=== PATIENT | male | born 1950 | race Caucasian/White ===

== ENCOUNTER 2023-03-24 20:18 | Observation (INO) | payer OTHER, SELFPAY ==
[2023-03-24] VITALS (9 sets, daily range): BP systolic 91–129; BP diastolic 46–73; PULSE 43–49; RESP 12–22; TEMP 36.3–36.6; O2SAT 94–98; BMI 27.3; BMI 29.0
--- NOTE | 2023-03-24 20:27 | ECG_ITS ---
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 Measurements Intervals [place] Rate: 42 P: 0 ID: 0 QRS: 40 QRSD: 128 T: 58 QT: 600 QTc: 507 Interpretive Statements UNCERTAIN REGULAR RHYTHM MODERATE INTRAVENTRICULAR CONDUCTION DELAY [110+ ms QRS DURATION] PROLONGED QT INTERVAL CRITICAL TEST RESULT Compared to ECG 04/26/2017 12:21:24 Intraventricular conduction delay now present Prolonged QT interval now present Sinus bradycardia no longer present Incomplete right bundle-branch block no longer present Electronically Signed On 03-24-2023 23:29:32 CDT by Jarred Mary M.D. [email or web address] Network/store/[id number]
--- NOTE | 2023-03-24 20:27 | XRR_ITS ---
PROCEDURE INFORMATION: Exam: XR Chest Exam date and time: 03/24/2023 8:32 PM Age: 72 years old Clinical indication: Pain; Chest pressure; Additional info: Chest pain TECHNIQUE: Imaging protocol: Radiologic exam of the chest. Views: 1 view. COMPARISON: CR XR chest 1V [id number] 04/26/2017 12:49 PM FINDINGS: Lungs: See Heart/Mediastinum finding. Pleural spaces: Unremarkable. No pleural effusion. No pneumothorax. Heart/Mediastinum: Cardiomegaly and mild pulmonary vascular congestion. Diaphragm: Left diaphragmatic eventration. Bones/joints: Unremarkable. XR/XR chest 1V portable [id number] IMPRESSION: 1. Left diaphragmatic eventration. 2. Cardiomegaly and mild pulmonary vascular congestion.
[2023-03-24] MEDS: sodium chloride 0.9% 1,000 ML 999 ML IV (20:33)
[2023-03-24] MEDS: glucagon 1 mg/mL KIT 1 mL IV (20:34)
--- NOTE | 2023-03-24 20:43 | ED_ITS ---
HPI - Chest Pain General: Chief Complaint: Chest Pain Stated Complaint: bradycardia Time Seen by Provider: 03/24/23 20:24 History of Present Illness: 72-year-old male with a known history of previous small atrial fibrillation presents to the ER chief complaint of hypotension and bradycardia patient was recently seen in the ER at [facility] in which he was provided a dose o f either Cardizem or carvedilol as his heart rate was found to be in the 160s he was subsequently discharged home in which he became hypotensive and bradycardic EMS was contacted in which she required 2 doses of epinephrine as well as 2 doses of atropine as blood pressure and heart rate were extremely low. Patient reports generalized weakness and fatigue since that he reports he is a [facility] in which all of his healthcare including cardiology is based out [facility]. The patient presents to our ER for further assessment and management. Associated symptoms: Deny abdominal pain, dyspnea, fever(s), nausea, palpitations or vomiting Review of Systems General: Reports: 10 or more systems reviewed and unremarkable except in HPI and below Narrative: Generalized weakness and fatigue bradycardia Const: Denies: fever(s), chills, fatigue or malaise Eyes: Denies: change in vision or blurry vision Card: Reports: irregular heart rhythm and pre-syncope; Denies: chest pain or palpitations Resp: Denies: dyspnea or productive cough GI: Denies: abdominal pain, nausea or vomiting : Denies: flank pain Musc: Denies: extremity pain or extremity swelling Skin/Breast: Denies: rash or pruritus Neuro: Denies: headache(s) Psych: Denies: anxiety or depression Jame/Lymph: Denies: easy bleeding All/Imm: Denies: urticaria, throat swelling or facial swelling Physical Exam Narrative: EXAM NARRATIVE: Flat affect appreciated on exam current heart rate is 48 with a blood pressure 100/61 patient appears somewhat pale however appears in no obvious acute dist ress Const: COMMON NORMALS: no acute distress, patient oriented x3 and healthy appearing HENMT: COMMON NORMALS: normocephalic and atraumatic HEAD & SCALP: normocephalic and atraumatic Eye: COMMON NORMALS: Equal, round and reactive pupils present and EOMs intact bilaterally PUPIL: Yes Equal, round and reactive pupils present Neck/C-Spine: COMMON NORMALS: full ROM, supple and no JVD Lymph: LYMPHATIC: no lymphadenopathy noted Chest: COMMONS NORMALS: normal inspection of the chest and normal palpation of entire chest wall Resp: COMMON NORMALS: normal respiratory effort, No retractions and clear to auscultation bilaterally EFFORT & INSPECTION: Yes able to speak in complete sentences and Yes symmetric chest movement AUSCULTATION: clear to auscultation bilaterally Cardio: COMMON NORMALS: no JVD, regular rate and regular rhythm RATE: regular rate and bradycardic RHYTHM: regular rhythm GI: COMMON NORMALS: Normal to inspection, nondistended, normoactive bowel sounds present, Soft to palpation and non-tender INSPECTION: Yes normal to inspection PALPATION: Yes Soft to palpation : COMMON NORMALS: Yes no CVA tenderness BLADDER/KIDNEY EXAM: Yes no CVA tenderness Back/Pelvis: COMMON NORMALS: no CVA tenderness Extremity: COMMON NORMALS: normal to inspection and full ROM Neuro: COMMON NORMALS: patient oriented x3, CN's II-XII intact bilaterally, moves all extremities and no focal motor deficits Psych: COMMON NORMALS: mental status grossly normal, Normal thought process present, cooperative and normal affect THOUGHT PROCESS: Normal thought process present Skin: COMMON NORMALS: no rashes or lesions noted GENERAL SKIN EXAM: no rashes or lesions noted Course Vital Signs: Vital signs: Vital Signs Temperature 97.3 F L 03/24/23 20:20 Pulse Rate 49 L 03/24/23 21:55 Respiratory Rate 12 03/24/23 21:55 Blood Pressure 115/73 03/24/23 21:55 Pulse Oximetry 95 03/24/23 21:55 Oxygen Delivery Me thod Room Air 03/24/23 21:00 MDM - Chest Pain Medical Decision Making Underlying concerns of sick sinus syndrome versus more than likely beta-jim overdose adverse reaction patient will be treated accordingly patient's current blood pressure is somewhat bradycardic and hypotensive we provided him calcium gluconate as he did have a prolonged QTc of 543 ms on his EKG which appears to be a junctional rhythm versus first-degree heart block. Expect need for admission or transfer as patient is a will continue to follow carefully. Discussed patient's case with Dr. Sol followed by Dr. Bui that are both in agreement to place the patient in observation status overnight the patient's repeat EKG revealed improvement of his QTc that is currently at 456 ms down from 543 ms due to being that there is a sinus bradycardia currently patient remained in stable condition at this time. Lab Data 03/24/23 20:33 03/24/23 20:33 Radiology Impressions Chest X-Ray 03/24/23: IMPRESSION: 1. Left diaphragmatic eventration. 2. Cardiomegaly and mild pulmonary vascular congestion. Laboratory Results WBC 8.0 10^3/uL (4.0-10.0) 03/24/23: RBC 3.23 10^6/uL (4.1-5.3) L 03/24/23: Hgb 12.1 g/dL (11.7-16.6) 03/24/23: Hct 33.9 % (42.0-52.0) L 03/24/23: MCV 105.0 fl (80-94) H 03/24/23: MCH 37.5 pg (28.0-34.0) H 03/24/23: MCHC 35.7 g/dL (30.0-36.0) 03/24/23: RDW 14.4 % (12.1-15.1) 03/24/23: Plt Count 158 10^3/cmm (130-400) 03/24/23: MPV 10.3 fL (7.4-10.4) 03/24/23 20: Neut % (Auto) 43.1 % 03/24/23: Lymph % (Auto) 38.1 % 03/24/23: Tate % (Auto) 12.8 % 03/24/23: Eos % (Auto) 3.4 % 03/24/23: Baso % (Auto) 2.0 % 03/24/23: Neut # (Auto) 3.44 10^3/uL (1.8-7.7) 03/24/23: Lymph # (Auto) 3.0 10^3/uL (0.8-4.8) 03/24/23 20: Tate # (Auto) 1.0 10^3/uL (0.2-0.9) H 03/24/23 20: Eos # (Auto) 0.3 10^3/uL (0.0-0.8) 03/24/23 20:33 Baso # (Auto) 0.2 10^3/uL (0.0-0.1) H 03/24/23 20:33 Nucleated RBC % (auto) 0 % 03/24/23 20: Nucleated RBCs # 0.0 /100WBC 03/24/23 20:33 PT 23.10 SECONDS (12.1-14.9) H 03/24/23 20:33 INR 1.97 (0.8-1.2) H 03/24/23 20:33 APTT 39.5 SECONDS (23.9-36.7) H 03/24/23 20:33 Sodium 141 mmol/L (136-145) 03/24/23 20:33 Potassium 4.2 mmol/L (3.5-5.1) 03/24/23 20:33 Chloride 110 mmol/L (98-107) H 03/24/23 20:33 Carbon Dioxide 26 mmol/L (22-29) 03/24/23 20:33 Anion Gap 9.2 (5-19) 03/24/23 20:33 BUN 10 mg/dL (8-23) 03/24/23 20:33 Creatinine 0.8 mg/dL (0.7-1.2) 03/24/23 20:33 GFR Calculation 95.6 mL/min (90-130) 03/24/23 20:33 Glucose 103 mg/dL (65-115) 03/24/23 20:33 Calculated Osmolality 291 mOsm/kg (285-295) 03/24/23 20:33 Calcium 7.9 mg/dL (8.5-10.5) L 03/24/23 20:33 Total Bilirubin 2.0 mg/dL (0.15-1.2) H 03/24/23 20:33 AST 35 U/L (0-40) 03/24/23 20:33 ALT 18 U/L (0-41) 03/24/23 20:33 Alkaline Phosphatase 152 U/L (40-130) H 03/24/23 20:33 Troponin T Baseline 17 ng/L (0-15) H 03/24/23 20:33 NT-Pro-B Natriuret Pep 352 pg/mL (0-125) H 03/24/23 20:33 Total Protein 5.2 g/dL (6.6-8.7) L 03/24/23 20:33 Albumin 2.3 g/dL (3.5-5.2) L 03/24/23 20:33 Globulin 2.9 g/dL (1.3-4.6) 03/24/23 20:33 Discharge Plan Discharge Patient Disposition: Admitted As Inpatient Admit Provider: Spike Sol Clinical Impression: Symptomatic bradycardia, Transient hypotension, Adverse drug reaction Condition: Stable Coding Level of Care Code ED 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
[2023-03-24] MEDS: calcium gluconate 0.1 gm/mL 10% SDV 10mL 1 GM IVP (20:48)
[2023-03-24 20:55] LABS: Basophils # 0.2 10^3/uL (0.0-0.1); Eosinophils # 0.3 10^3/uL (0.0-0.8); Eosinophils % 3.4 %; Hematocrit 33.9 % (42.0-52.0); Hemoglobin 12.1 g/dL (11.7-16.6); Lymphocytes % 38.1 %; Mean Corpuscular HGB Conc 35.7 g/dL (30.0-36.0); Mean Corpuscular Hemoglobin 37.5 pg (28.0-34.0); Mean Platelet Volume 10.3 fL (7.4-10.4); Monocytes % 12.8 %; Neutrophils # 3.44 10^3/uL (1.8-7.7); Neutrophils % 43.1 %; Nucleated Red Blood Cells % 0 %; Platelet Count 158 10^3/cmm (130-400); Red Blood Count 3.23 10^6/uL (4.1-5.3); Red Cell Distribution Width 14.4 % (12.1-15.1)
[2023-03-24 21:08] LABS: INR 1.97 (0.8-1.2)
[2023-03-24 21:09] LABS: Partial Thromboplastin Time 39.5 SECONDS (23.9-36.7)
[2023-03-24 21:29] LABS: Troponin(5th) Baseline 17 ng/L (0-15)
[2023-03-24 21:39] LABS: Alanine Aminotransferase 18 U/L (0-41); Albumin Level 2.3 g/dL (3.5-5.2); Alkaline Phosphatase 152 U/L (40-130); Anion Gap 9.2 (5-19); Aspartate Amino Transferase 35 U/L (0-40); Blood Urea Nitrogen 10 mg/dL (8-23); Calcium 7.9 mg/dL (8.5-10.5); Carbon Dioxide 26 mmol/L (22-29); Chloride 110 mmol/L (98-107); Globulin 2.9 g/dL (1.3-4.6); Glomerular Filtration Rate 95.6 mL/min (90-130); Glucose 103 mg/dL (65-115); NT Pro B Type Natriuretic Pept 352 pg/mL (0-125); Osmolality Calculated 291 mOsm/kg (285-295); Potassium 4.2 mmol/L (3.5-5.1); Sodium 141 mmol/L (136-145); Total Protein 5.2 g/dL (6.6-8.7)
--- NOTE | 2023-03-24 22:18 | PM.HP ---
Providers/Chief Complaint Admitting Physician: Spike Sol MD Primary Care Provider: Ramona Cr MD Chief Complaint: bradycardia History of Present Illness Cesario Awan is a 72 year old male with a past medical history significant for atrial fibrillation on flecainide, sleep apnea, and alpha-1 antitrypsin who presents to the emergency department via EMS with altered mental status, hypotension and bradycardia. Patient reports he was in his usual state of health until this morning when he developed palpations. Reports onset while at rest. His spouse gave him an additional dose of flecainide as instructed by his neurology professor to do in these situations. Symptoms persisted so, they were evaluated at a [facility] ED, where he was found to have a-fib with RVR. They reportedly contacted his neurology professor / EP physician, Dr Meyer, at [facility]. Patient was treated with Coreg and discharged. Spouse reports patient was whoozy in the car on the ride home. He then developed altered mental status and she was afraid he was having a stroke given the recent a-fib issue so she called EMS. Per ED provider report, patient's blood pressure was found to be around 70s/30-40s and heart rate was on the 30s. Upon presentation to the ED, patient's blood pressure remained soft and he was bradycardic. Patient received IV fluids, epi, atropine, calcium, and glucagon. Patient reports he is currently symptom free. He denies chest pain, shortness of breath, fevers or chills. He reports he was diagnosed with atrial fibrillation around 2014. He was previously on flecainide and Coreg but Coreg was discontinued about a year ago due to low blood pressures. He has done well with blood pressure control since that time. His spouse keeps a daily log of vitals. He was previously on Xarelto at one time and aspirin at one time, but both were eventually discontinued by his neurology professor. He states he has a loop recorder currently implanted and spouse agrees to bring in sending unit in AM if that would indeed be helpful. He recently had an echocardiogram done within the past month at [facility] ordered by his signalling and communications engineer there, showing LVEF of 69 percent. Spouse has echo report and other medical records bedside for review. Review of Systems Narrative: A complete review of systems was obtained and is negative except as stated in HPI. Medications/Allergies Home Medications Medication Instructions Recorded Confirmed Last Taken Type cholecalciferol (vitamin D3) 50 100 mcg PO DAILY 03/24/23 03/24/23 03/24/23 History mcg (2,000 unit) tablet (Vitamin D3) flecainide 100 mg tablet 100 mg PO Q12H 03/24/23 03/24/23 03/24/23 History pantoprazole 40 mg tablet,delayed 40 mg PO DAILY 03/24/23 03/24/23 03/24/23 08:00 History release (Protonix) Allergies Allergy/AdvReac Type Severity Reaction Status Date / Time No Known Allergies Allergy Verified 03/24/23 20:25 PFSH Acute PFSH: Medical History (Updated 03/25/23 @ 00:51 by Spike Sol MD) Kzxcb-4-slpylrhyxea deficiency Atrial fibrillation Sleep apnea Surgical History (Updated 03/25/23 @ 00:45 by Spkie Sol MD) History of tonsillectomy Family History (Updated 03/25/23 @ 00:47 by Spike Sol MD) Father Liver disease Social History (Updated 03/25/23 @ 00:48 by Spike Sol MD) Smoking and tobacco status: never smoked Alcohol intake: former Substance/Drug Use: never Vitals/I&O/Wt Last Vital Signs Temp 97.3 F L 03/24/23 20:20 Pulse 49 L 03/24/23 21:55 Resp 12 03/24/23 21:55 BP 115/73 03/24/23 21:55 Pulse Ox 95 03/24/23 21:55 O2 Del Method Room Air 03/24/23 21:00 Weight last 48 hrs Weight 86.636 kg Physical Exam Narrative: General: Patient is awake and alert. Head: Normocephalic. Atraumatic. EOM intact. Neck: No JVD. Cardiovascular: Bradycardic. No gallops. No murmurs. Trace peripheral edema. Lungs: Clear to auscultation, no use of accessory muscles, no crackles or wheezes. Skin: No jaundice. No rashes. Abdomen: Normal bowel sounds, abdomen soft and nontender. Extremities: No cyanosis or clubbing. Musculoskeletal: No swollen or erythematous joints. Neurological: Moves all 4 extremities. No myoclonus. Data 03/24/23 20:33 03/24/23 20:33 A&P Assessment and plan (1) Symptomatic bradycardia: Likely Coreg induced Hold beta jim Telemetry monitoring Cardiology consulted by ED Follow up to see if data from loop recorder is available (2) Transient hypotension: Responded to treatment Blood pressure currently normal Off Coreg Monitor BP closely (3) Atrial fibrillation: Continue flecainide Discontinue Coreg Cardiology consulted Consider loop recorder review if feasible Recent echo report from [facility] reviewed bedside Recommend contacting cardiology EP Dr Kingston if possible prior to discharge Patient not on anticoagulation (4) Sleep apnea: CPAP at home settings Plan DVT ppx: Lovenox Code Status: Full Attestations Medical Necessity Statement*: Patient presents with symptomatic bradycardia and hypotension with expected hospital course not to cross two midnights. Coding Level of Care Code Acute Code for [facility] Fwd Diagnoses Symptomatic bradycardia R00.1 Transient hypotension I95.9 Atrial fibrillation I48.91 Sleep apnea G47.30
--- NOTE | 2023-03-24 22:27 | ECG_ITS ---
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 Measurements Intervals [place] Rate: 44 P: 2 VA: 207 QRS: 18 QRSD: 118 T: 49 QT: 505 QTc: 435 Interpretive Statements SINUS BRADYCARDIA MODERATE INTRAVENTRICULAR CONDUCTION DELAY [110+ ms QRS DURATION] Compared to ECG 04/26/2017 12:21:24 Intraventricular conduction delay now present Incomplete right bundle-branch block no longer present Electronically Signed On 03-24-2023 23:38:41 CDT by Jarred Mary M.D. [email or web address] [employer] Document Preparation/store/OM/[id number]
[2023-03-24 22:38] LABS: Troponin 5 2HR 14.77 ng/L (0-15)
[2023-03-24 22:48] LABS: Troponin 5 2HR Delta -2.23 ABS# (0-10)
--- NOTE | 2023-03-24 23:34 | PC.NURSE ---
Informed Dr Sol that patient uses cpap at home. Received telephone order to place on cpap using home settings. hari
[2023-03-25] VITALS (9 sets, daily range): BP systolic 112–129; BP diastolic 58–73; PULSE 41–50; RESP 17–24; TEMP 36.4–36.7; O2SAT 92–94
--- NOTE | 2023-03-25 02:27 | ECG_ITS ---
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 Measurements Intervals [place] Rate: 46 P: 41 MO: 206 QRS: 36 QRSD: 132 T: 57 QT: 532 QTc: 470 Interpretive Statements SINUS BRADYCARDIA WITH OCCASIONAL VENTRICULAR PREMATURE COMPLEXES INTRAVENTRICULAR CONDUCTION DELAY [130+ ms QRS DURATION] Compared to ECG 03/24/2023 22:22:32 Ventricular premature complex(es) now present Electronically Signed On 03-25-2023 16:09:46 CDT by Jer Joyce M.D. [email or web address].[employer]/store/OM/[id number]
[2023-03-25 03:10] LABS: Add Urine Microscopic? NO; Charge for UA Resulting for Rev
[2023-03-25 03:14] LABS: Bilirubin Urine Neg (Negative); Blood Urine Neg (Negative); Glucose Urine UA Norm (Normal); Ketones Urine Negative (Negative); Leukocyte Esterase Urine Negative (Negative); Nitrate Urine Negative (Negative); Protein Urine Neg (Negative); Urine Appearance Clear (CLEAR); Urine Color Dark Yellow (Yellow); Urobilinogen Urine Neg (Negative); pH Urine 5 (5-7)
[2023-03-25 03:36] LABS: Anion Gap 9.9 (5-19); Blood Urea Nitrogen 11 mg/dL (8-23); Calcium 7.8 mg/dL (8.5-10.5); Carbon Dioxide 25 mmol/L (22-29); Chloride 110 mmol/L (98-107); Glomerular Filtration Rate 111.5 mL/min (90-130); Glucose 116 mg/dL (65-115); Magnesium 1.6 mg/dL (1.7-2.3); Osmolality Calculated 290 mOsm/kg (285-295); Phosphorus 3.9 mg/dL (2.5-4.5); Potassium 4.9 mmol/L (3.5-5.1); Sodium 140 mmol/L (136-145)
[2023-03-25 03:38] LABS: Troponin 5 6HR 18.51 ng/L (0-15); Troponin 5 6HR Delta 1.51 ng/L (0-12)
--- NOTE | 2023-03-25 08:16 | P.CONIM_ITS ---
Providers/Reason For Consult Consulting Physician/Specialty*: Jer Joyce MD/Cardiology Reason for Consult*: Bradycardia Requesting Physician: Dr Medina Attending Physician: Jonathan Sosa MD Primary Care Provider: Ramona Cr MD History of Present Illness History of Present Illness Cesario Awan is a 72 year old male with past medical history of atrial fibrillation on flecainide, sleep apnea presented to the hospital with hypotension and bradycardia. Patient had an episode of A-fib with RVR for which he went to [facility]. He had already taken an additional dose of flecainide prior to ER arrival. He was given Coreg and was discharged home. On the way home he felt dizzy and says almost passed out. Denies chest pain. A recent echo LVEF was normal at outside hospital. He sees EP service in [place]. Not on anticoagulation This morning he is feeling better. No more pre-syncopal episodes Review of Systems General: Reports: 10 or more systems reviewed and unremarkable except in HPI and below Narrative: Generalized weakness and fatigue bradycardia Const: Denies: fever(s), chills, fatigue or malaise Eyes: Denies: change in vision or blurry vision Card: Reports: irregular heart rhythm and pre-syncope; Denies: chest pain or palpitations Resp: Denies: dyspnea or productive cough GI: Denies: abdominal pain, nausea or vomiting : Denies: flank pain Musc: Denies: extremity pain or extremity swelling Skin/Breast: Denies: rash or pruritus Neuro: Denies: headache(s) Psych: Denies: anxiety or depression Jame/Lymph: Denies: easy bleeding All/Imm: Denies: urticaria, throat swelling or facial swelling Medications/Allergies Home Medications Medication Instructions Recorded Confirmed Last Taken Type cholecalciferol (vitamin D3) 50 100 mcg PO DAILY 03/24/23 03/24/23 03/24/23 History mcg (2,000 unit) tablet (Vitamin D3) flecainide 100 mg tablet 100 mg PO Q12H 03/24/23 03/24/23 03/24/23 History pantoprazole 40 mg tablet,delayed 40 mg PO DAILY 03/24/23 03/24/23 03/24/23 08:00 History release (Protonix) Allergies Allergy/AdvReac Type Severity Reaction Status Date / Time No Known Allergies Allergy Verified 03/24/23 20:25 Current Medications Generic Name Dose Route Start Last Admin Trade Name Fer PRN Reason Stop Dose Admin Flecainide Acetate 100 mg 03/24/23 23:45 03/25/23 02:08 Flecainide 100 Mg Tablet PO Not Given Q12H JESUS PFSH Acute PFSH: Medical History Oakub-3-hzzbitnjofq deficiency Atrial fibrillation Sleep apnea Surgical History History of tonsillectomy Family History Father Liver disease Social History Smoking and tobacco status: never smoked Alcohol intake: former Substance/Drug Use: never Vitals/I&O/Wt Last Vital Signs Temp 98.1 F 03/25/23 04:00 Pulse 46 L 03/25/23 04:20 Resp 17 03/25/23 04:00 BP 112/58 03/25/23 04:00 Pulse Ox 92 03/25/23 04:03 O2 Del Method CPAP 03/25/23 04:00 FiO2 21 03/25/23 04:03 03/24/23 03/25/23 03/25/23 22:59 06:59 14:59 Intake Total 1000 / 1000 Output Total 450 / 450 Balance 1000 / 1000 -450 / 550 Weight last 48 hrs Weight 202 lb 12.8 oz Weight 191 lb Physical Exam Narrative: GENERAL: Patient is alert, awake and oriented x3. [] NECK: No jugular vein distension. [] HEENT: No cyanosis. No icterus. No pallor. [] HEART: Regular S1 and S2. LUNGS: Clear to auscultate bilaterally. [] CENTRAL NERVOUS SYSTEM: Grossly nonfocal. [] EXTREMITIES: Lower extremities with no edema Data 03/24/23 20:33 03/25/23 02:32 A&P Assessment and plan (1) Atrial fibrillation: (2) Symptomatic bradycardia: (3) Sleep apnea: (4) Transient hypotension: Plan Patient has presented with significant bradycardia. His presentation is consistent with sick sinus syndrome. He went in with A-fib with RVR and with administration of Coreg his heart rate dropped significantly into 30s-40s with the hypotension. Keep holding all rate limiting agents. We will hold flecainide for today. Blood pressure has improved today, heart rate still quite low. I have recommended pacemaker placement given his presentation of almost passing out, hypotension and bradycardia with coreg. Heart rates continue to be in 30s to 40s. He wants to see his EP donation worker as outpatient to get the pacemaker evaluation. He understands the risk We will continue observing him on tele monitor till tomorrow. If asymptomatic and has improved heart rates, can be discharged to follow up with his cardiology team as outpatient. CHADS VASc score is 1. Currently not on any antiplatelet/anticoagulation. Can be started on aspirin vs anticoagulation for stroke prevention. We will discuss with patient at time of discharge Thank you for involving us with care of this patient. We will continue to follow. please call with questions. Consult Attestations Medical Necessity Statement: Care expected to cross 2 midnights. Coding Level of Care Code [facility] Atrial fibrillation I48.91 Symptomatic bradycardia R00.1 Sleep apnea G47.30 Transient hypotension I95.9
[2023-03-25] MEDS: pantoprazole DR 40 mg Tablet PO (09:35)
--- NOTE | 2023-03-25 09:45 | PC.NURSE ---
dr thorpe stated to hold flecainide today due to low heart rate
--- NOTE | 2023-03-25 10:50 | PC.NURSE ---
loop recorder has been downloaded by pt's spouse
--- NOTE | 2023-03-25 11:17 | PM.PN ---
Subjective Subjective: 72yo M with Hx of Afib presented to ED with symptomatic bradycardia after starting COREG from [facility]. seen at bedside this AM. pt stats he is feeling improved this AM. no longer having Sx. able to get up and go to the bathroom with minimal Sx. Pt states he was previously on xeralto and ASA in past, taken off by bowling ball finisher 4yrs ago. after reading report, appeared to have low risk. Denies CP, palpitations, SOB, cough, N/V/D/C, abd pain, BOLIVAR, vision changes, loss of sensation or strength in extremities Vitals/I&O/Wt Last Vital Signs Temp 98.0 F 03/25/23 08:00 Pulse 41 L 03/25/23 08:00 Resp 20 H 03/25/23 08:00 BP 124/64 03/25/23 08:00 Pulse Ox 94 03/25/23 08:00 O2 Del Method Room Air 03/25/23 08:00 FiO2 21 03/25/23 08:00 03/24/23 03/25/23 03/25/23 22:59 06:59 14:59 Intake Total 1000 / 1000 240 / 240 Output Total 450 / 450 Balance 1000 / 1000 -450 / 550 240 / 240 Weight last 48 hrs Weight 202 lb 12.8 oz Weight 191 lb Physical Exam Narrative: General: AOx3, no acute distress, well developed, well nourished, appears stated age psych: appropriate mood and affect. good judgment and insight. No suicidal or homicidal ideation. Head: atraumatic, normocephalic, no mass/lesions Eyes: conjunctiva clear w/o exudate or hemorrhage. non-icteric, EOM intact, PERRLA. no signs of nystagmus Nose: nasal mucosa pink, septum midline Oropharynx: good dentition Neck: FROM, no lymphadenopathy, no tracheal deviation, non tender, thyroid gland normal w/o mass. supple Chest: atraumatic, symmetrical CVD: bradycardia, regular rhythm, normal S1 and S2, no M/R/G. 2+ pulse x 4 extremities, no JVD, no carotid bruit. Lungs: clear lung sounds in all pan, no rhonchi, wheezing, rales. Abdomen: NT, ND, soft, NABS. No hepatosplenomegaly, no mass. umbilicus midline w/o herniation Neuro: CNII-XII grossly intact. No atrophy, weakness, tremors or clonus.? 2+ DTR, no sensory abnormalities. Skin:? no rash, vesicles, lesions. Data 03/24/23 20:33 03/25/23 02:32 A&P Assessment and plan (1) Atrial fibrillation: HOLD flecainide per cardiology DISCONITNUE Coreg followed by Dr. Joyce Recommended pacemaker. pt declined. Desires to consider pacemaker in future with Dr. Kingston at [facility]. risks discussed and accepted by patient Patient not on anticoagulation. consider ASA at time of discharge CHICA-VASC: 1. pt not currently on anticoagulation/antiplatelet x 4 years per patient. unclear reasoning. was taken off xeralto and ASA. FAVIO 40 (2) Symptomatic bradycardia: Likely Coreg induced. since BB discontinued HR continues to be low Telemetry monitoring (3) Sleep apnea: CPAP at home settings (4) Transient hypotension: Responded to treatment BP currently normotensive. Monitor BP closely (5) Hypomagnesemia: Mg 1.6, will repeat in AM Plan HOLD flecanide DISCONTINUED coreg pending Loop recorder reading seen by Dr. Joyce. recommended pacemaker placement. pt desires to discuss with his EP as outpatient. risks discussed and pt accepts risks. continue telemetry if HR improves and Asx can likely discharge in AM to f/u with bowling ball finisher as outpatient favio 40. will discuss ASA vs eliquis at time of discharge. Attestations Medical Necessity Statement*: will require 2 overnight stays for Afib RVR then bradycardia Coding Level of Care Code 64007 Diagnoses Atrial fibrillation I48.91 Symptomatic bradycardia R00.1 Sleep apnea G47.30 Transient hypotension I95.9 Hypomagnesemia E83.42
[2023-03-25] MEDS: enoxaparin 40 mg/0.4 mL Syringe SUBCUT (12:34)
[2023-03-26] VITALS: BP 116/72; PULSE 51; RESP 20; TEMP 36.3; O2SAT 95
[2023-03-26 03:24] LABS: Basophils # 0.1 10^3/uL (0.0-0.1); Eosinophils # 0.4 10^3/uL (0.0-0.8); Hematocrit 34.8 % (42.0-52.0); Lymphocytes # 2.7 10^3/uL (0.8-4.8); Lymphocytes % 38.9 %; Mean Corpuscular HGB Conc 34.5 g/dL (30.0-36.0); Mean Corpuscular Hemoglobin 36.9 pg (28.0-34.0); Mean Corpuscular Volume 107.1 fl (80-94); Mean Platelet Volume 10.4 fL (7.4-10.4); Monocytes # 0.9 10^3/uL (0.2-0.9); Monocytes % 13.2 %; Neutrophils # 2.72 10^3/uL (1.8-7.7); Neutrophils % 39.6 %; Nucleated Red Blood Cells % 0 %; Platelet Count 156 10^3/cmm (130-400); Red Blood Count 3.25 10^6/uL (4.1-5.3); Red Cell Distribution Width 14.6 % (12.1-15.1); White Blood Count 6.9 10^3/uL (4.0-10.0)
[2023-03-26 03:45] LABS: Alanine Aminotransferase 20 U/L (0-41); Albumin Level 2.2 g/dL (3.5-5.2); Alkaline Phosphatase 159 U/L (40-130); Aspartate Amino Transferase 38 U/L (0-40); Blood Urea Nitrogen 12 mg/dL (8-23); Carbon Dioxide 28 mmol/L (22-29); Chloride 105 mmol/L (98-107); Globulin 3.3 g/dL (1.3-4.6); Glomerular Filtration Rate 95.6 mL/min (90-130); Glucose 130 mg/dL (65-115); Magnesium 1.6 mg/dL (1.7-2.3); Osmolality Calculated 290 mOsm/kg (285-295); Sodium 139 mmol/L (136-145); Total Protein 5.5 g/dL (6.6-8.7)
[2023-03-26 03:49] LABS: Estmated Average Glucose 80; Hemoglobin A1C 4.4 % (4.0-6.0)
[2023-03-26 03:51] VITALS: PULSE 45
[2023-03-26 04:00] VITALS: BP 127/67; PULSE 52; RESP 19; TEMP 36.4; O2SAT 93
--- NOTE | 2023-03-26 05:38 | PC.NURSE ---
patient c/o sick stomach. have given sprite and dry crackers with no relief. Informed Dr Sol and received telephone order for Zofran 4mg IVP every 6 hours prn.
--- NOTE | 2023-03-26 06:07 | PC.NURSE ---
Patient up ambulating in the fabian. Patient denies dizziness or other symptoms related to bradycardia. Heart rate at 52 after ambulation. Patient states, I am ready to go home now.
[2023-03-26 07:58] VITALS: BP 151/85; PULSE 51; RESP 18; TEMP 36.8; O2SAT 95
--- NOTE | 2023-03-26 08:36 | PM.PN ---
Subjective Subjective: Patient is doing well. Denies any complaints of syncope/presyncope. Blood pressure is stable. Heart rate has improved to close to 50 bpm. He continues to be in sinus bradycardia. Vitals/I&O/Wt Last Vital Signs Temp 98.3 F 03/26/23 07:58 Pulse 51 L 03/26/23 07:58 Resp 18 03/26/23 07:58 BP 151/85 03/26/23 07:58 Pulse Ox 95 03/26/23 07:58 O2 Del Method Room Air 03/26/23 07:58 FiO2 21 03/25/23 08:00 03/25/23 03/26/23 03/26/23 22:59 06:59 14:59 Intake Total 780 / 1380 250 / 1630 100 / 100 Balance 780 / 1380 250 / 1630 100 / 100 Weight last 48 hrs Weight 208 lb 11.2 oz Weight 202 lb 12.8 oz Weight 191 lb Physical Exam Narrative: GENERAL: Patient is alert, awake and oriented x3. [] NECK: No jugular vein distension. [] HEENT: No cyanosis. No icterus. No pallor. [] HEART: Regular S1 and S2. LUNGS: Clear to auscultate bilaterally. [] CENTRAL NERVOUS SYSTEM: Grossly nonfocal. [] EXTREMITIES: Lower extremities with no edema Data 03/26/23 02:45 03/26/23 02:45 A&P Assessment and plan (1) Atrial fibrillation: (2) Symptomatic bradycardia: (3) Sleep apnea: (4) Transient hypotension: Plan Patient has stayed stable and heart rate has improved to close to 50 bpm. Keep holding all rate limiting agents. We will also stop flecainide's BID dosing and we will put him on pill in the pocket approach. He can take flecainide 300 mg only if he is goes in A-fib with RVR and stays in it as needed. Patient advised to have a close follow up at EP office. Will recommend aspirin 325mg daily as has CHADS VASc score of 1. Thank you for involving us with care of this patient. Patient is stable to be discharged from cardiology standpoint. Please call with questions. Attestations Medical Necessity Statement*: Care expected to cross 2 midnights. Coding Level of Care Code Acute Code for [facility] Diagnoses Atrial fibrillation I48.91 Symptomatic bradycardia R00.1 Sleep apnea G47.30 Transient hypotension I95.9
[2023-03-26] MEDS: pantoprazole DR 40 mg Tablet PO (08:38)
--- NOTE | 2023-03-26 09:17 | PM.DCS ---
Discharge Providers Date of Admission: 03/24/23 22:17 Date of Discharge: March 26, 2023 Attending Provider at Admission: Spike Sol MD Attending Provider at Discharge: Jonathan Sosa MD Consults: Dr. Joyce (cardiology) Primary Care Provider: Ramona Cr MD Diagnoses at Discharge Discharge Diagnosis (1) Atrial fibrillation: Details from hospital stay: Discontinued COREG Discontinued daily felecanide BID. Can take Flecanide 300mg PO qd on PRN basis if he goes into Afib with RVR advised to schedule appointment with EP office in [facility] 1. ASA 325mg qd Status: Acute (2) Symptomatic bradycardia: Details from hospital stay: resolved Status: Acute (3) Sleep apnea: Details from hospital stay: continue home CPAP Status: Acute (4) Transient hypotension: Status: Acute Reason for Visit Reason for Visit: bradycardia Hospital Course Hospital Course 72yo M with Hx of Afib presented to ED with symptomatic bradycardia after starting COREG from [facility]. Upon admission COREG was discontinued. pt continued to have some symptoms of bradycardia. Dr. Joyce was consulted and discontinued the flecanide to evaluate response. After 24hrs off Flecanide HR improved from mid 30's to low 50's. On day of discharge pt was symptom free. was walking in the hallways without CP or palpitations. states he hasnt felt this energized in months. Flecanide was altered to 300mg on a PRN basis when having afib. stable at time of discharge. Will be closely followed by EP at [facility] Physical Exam Narrative: General: AOx3, no acute distress, well developed, well nourished, appears stated age psych: appropriate mood and affect. good judgment and insight. No suicidal or homicidal ideation. Head: atraumatic, normocephalic, no mass/lesions Eyes: conjunctiva clear w/o exudate or hemorrhage. non-icteric, EOM intact, PERRLA. no signs of nystagmus Nose: nasal mucosa pink, septum midline Oropharynx: good dentition Neck: FROM, no lymphadenopathy, no tracheal deviation, non tender, thyroid gland normal w/o mass. supple Chest: atraumatic, symmetrical CVD: bradycardia, regular rhythm, normal S1 and S2, no M/R/G. 2+ pulse x 4 extremities, no JVD, no carotid bruit. Lungs: clear lung sounds in all pan, no rhonchi, wheezing, rales. Abdomen: NT, ND, soft, NABS. No hepatosplenomegaly, no mass. umbilicus midline w/o herniation Neuro: CNII-XII grossly intact. No atrophy, weakness, tremors or clonus.? 2+ DTR, no sensory abnormalities. Skin:? no rash, vesicles, lesions. Discharge Data Studies Completed and Pending Completed Studies During Hospitalization Category Date Time Status XR chest 1V portable [id number] Stat Exams 03/24/23 20:27 Completed Radiology Impressions Chest X-Ray 03/24/23 20:27 IMPRESSION: 1. Left diaphragmatic eventration. 2. Cardiomegaly and mild pulmonary vascular congestion. Laboratory Results WBC 6.9 10^3/uL (4.0-10.0) 03/26/23 02:45 RBC 3.25 10^6/uL (4.1-5.3) L 03/26/23 02:45 Hgb 12.0 g/dL (11.7-16.6) 03/26/23 02:45 Hct 34.8 % (42.0-52.0) L 03/26/23 02:45 MCV 107.1 fl (80-94) H 03/26/23 02:45 MCH 36.9 pg (28.0-34.0) H 03/26/23 02:45 MCHC 34.5 g/dL (30.0-36.0) 03/26/23 02:45 RDW 14.6 % (12.1-15.1) 03/26/23 02:45 Plt Count 156 10^3/cmm (130-400) 03/26/23 02:45 MPV 10.4 fL (7.4-10.4) 03/26/23 02:45 Neut % (Auto) 39.6 % 03/26/23 02:45 Lymph % (Auto) 38.9 % 03/26/23 02:45 [place] % (Auto) 13.2 % 03/26/23 02:45 Eos % (Auto) 6.0 % 03/26/23 02:45 Baso % (Auto) 2.0 % 03/26/23 02:45 Neut # (Auto) 2.72 10^3/uL (1.8-7.7) 03/26/23 02:45 Lymph # (Auto) 2.7 10^3/uL (0.8-4.8) 03/26/23 02:45 [place] # (Auto) 0.9 10^3/uL (0.2-0.9) 03/26/23 02:45 Eos # (Auto) 0.4 10^3/uL (0.0-0.8) 03/26/23 02:45 Baso # (Auto) 0.1 10^3/uL (0.0-0.1) 03/26/23 02:45 Nucleated RBC % (auto) 0 % 03/26/23 02:45 Nucleated RBCs # 0.0 /100WBC 03/26/23 02:45 PT 21.50 SECONDS (12.1-14.9) H 03/26/23 02:45 INR 1.80 (0.8-1.2) H 03/26/23 02:45 APTT 39.5 SECONDS (23.9-36.7) H 03/24/23 20:33 Sodium 139 mmol/L (136-145) 03/26/23 02:45 Potassium 4.0 mmol/L (3.5-5.1) 03/26/23 02:45 Chloride 105 mmol/L (98-107) 03/26/23 02:45 Carbon Dioxide 28 mmol/L (22-29) 03/26/23 02:45 Anion Gap 10.0 (5-19) 03/26/23 02:45 BUN 12 mg/dL (8-23) 03/26/23 02:45 Creatinine 0.8 mg/dL (0.7-1.2) 03/26/23 02:45 GFR Calculation 95.6 mL/min (90-130) 03/26/23 02:45 Glucose 130 mg/dL (65-115) H 03/26/23 02:45 Estimat Average Glucose 80 03/26/23 02:45 Hemoglobin A1c 4.4 % (4.0-6.0) 03/26/23 02:45 Calculated Osmolality 290 mOsm/kg (285-295) 03/26/23 02:45 Calcium 8.0 mg/dL (8.5-10.5) L 03/26/23 02:45 Phosphorus 3.9 mg/dL (2.5-4.5) 03/25/23 02:32 Magnesium 1.6 mg/dL (1.7-2.3) L 03/26/23 02:45 Total Bilirubin 2.0 mg/dL (0.15-1.2) H 03/26/23 02:45 AST 38 U/L (0-40) 03/26/23 02:45 ALT 20 U/L (0-41) 03/26/23 02:45 Alkaline Phosphatase 159 U/L (40-130) H 03/26/23 02:45 Troponin T Baseline 17 ng/L (0-15) H 03/24/23 20:33 Troponin T 120 Minute 14.77 ng/L (0-15) 03/24/23 22:09 Delta Troponin T -2.23 ABS# (0-10) L 03/24/23 22:09 Troponin T Hi Sens 6Hr 18.51 ng/L (0-15) H 03/25/23 02:32 Troponin T Hi Sens 6Hr Delta 1.51 ng/L (0-12) 03/25/23 02:32 NT-Pro-B Natriuret Pep 352 pg/mL (0-125) H 03/24/23 20:33 Total Protein 5.5 g/dL (6.6-8.7) L 03/26/23 02:45 Albumin 2.2 g/dL (3.5-5.2) L 03/26/23 02:45 Globulin 3.3 g/dL (1.3-4.6) 03/26/23 02:45 Urine Color Dark yellow (Yellow) 03/25/23 02:40 Urine Appearance Clear (CLEAR) 03/25/23 02:40 Urine pH 5 (5-7) 03/25/23 02:40 Ur Specific [place] 1.020 (1.005-1.030) 03/25/23 02:40 Urine Protein Neg (Negative) 03/25/23 02:40 Urine Glucose (UA) Norm (Normal) 03/25/23 02:40 Urine Ketones Negative (Negative) 03/25/23 02:40 Urine Blood Neg (Negative) 03/25/23 02:40 Urine Nitrate Negative (Negative) 03/25/23 02:40 Urine Bilirubin Neg (Negative) 03/25/23 02:40 Urine Urobilinogen Neg mg/dL (Negative) 03/25/23 02:40 Ur Leukocyte Esterase Negative (Negative) 03/25/23 02:40 Vitals Last Vital Signs Temp 98.3 F 03/26/23 07:58 Pulse 51 L 03/26/23 07:58 Resp 18 03/26/23 07:58 BP 151/85 03/26/23 07:58 Pulse Ox 95 03/26/23 07:58 O2 Del Method Room Air 03/26/23 07:58 FiO2 21 03/26/23 08:00 Discharge Plan Discharge Condition: Stable Prescriptions: New aspirin 325 mg tablet 325 mg PO DAILY Qty: 90 0RF flecainide 100 mg Tablet 300 mg PO ONCE PRN (Reason: atrial fibrillation) Qty: 30 0RF Continued Protonix 40 mg Tablet,Delayed Release (Dr/Ec) 40 mg PO DAILY Vitamin D3 50 mcg (2,000 unit) Tablet 100 mcg PO DAILY Discontinued flecainide 100 mg Tablet 100 mg PO Q12H Referrals: Ramona Cr MD [Primary Care Provider] - Discharge Diet: Cardiac Discharge Activity: Resume usual activity Patient Instructions: Opioid Safety Discharge Attestations Time Spent in Discharge Care*: less than 30 min Quality Metrics Clinical Quality Measures [ No reported AMI, CVA or VTE this stay] Coding Level of Care Code 00945 Diagnoses Atrial fibrillation I48.91 Symptomatic bradycardia R00.1 Sleep apnea G47.30 Transient hypotension I95.9
[2023-03-26 12:00] VITALS: BP 146/81; PULSE 45; TEMP 36.6; O2SAT 96
[2023-03-26 12:38] VITALS: BP 146/81; PULSE 45; TEMP 36.6; O2SAT 96
--- NOTE | 2023-03-26 12:54 | PC.NURSE ---
discharge instructions given and explained pt and spouse verb understanding.discharged via w/c to exit at this time
== END 2023-03-26 12:57 | disposition home or self-care (01) ==
LOC: ER 20:47 → CSU 22:18
PROVIDERS: Admitting Provider Internal Medicine; Emergency Provider Emergency Medicine; PCP Family Medicine; Visit Provider Family Medicine
DX: I95.89 Other hypotension (principal); R00.1 Bradycardia, unspecified; I48.91 Unspecified atrial fibrillation; G47.30 Sleep apnea, unspecified; I45.10 Unspecified right bundle-branch block; R94.31 Abnormal electrocardiogram [ECG] [EKG]; Z79.899 Other long term (current) drug therapy
CPT/HCPCS: 36415; 71045; 80048; 80053; 81003; 83036; 83735; 83880; 84100; 84484; 85025; 85610; 85730; 93005; 94660; 96372; 96374; 96375; 99285; G0378; J0612; J1610; J1650; J7030

== ENCOUNTER 2023-04-13 17:33 | Observation (INO) | payer OTHER, SELFPAY ==
[2023-04-13 18:00] VITALS: BP 103/66; PULSE 60; RESP 18; TEMP 36.6; O2SAT 97; BMI 27.2
--- NOTE | 2023-04-13 18:46 | ECG_ITS ---
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 Measurements Intervals [place] Rate: 61 P: 265 DE: 214 QRS: 43 QRSD: 129 T: 64 QT: 364 QTc: 367 Interpretive Statements ELECTRONIC ATRIAL PACEMAKER MODERATE INTRAVENTRICULAR CONDUCTION DELAY [110+ ms QRS DURATION] NONSPECIFIC ST ELEVATION [0.05+ mV ST ELEVATION] ABNORMAL RHYTHM ECG Compared to ECG 03/25/2023 03:40:33 ST (T wave) deviation now present Sinus bradycardia no longer present Ventricular premature complex(es) no longer present Electronically Signed On 04-14-2023 20:01:13 CDT by Jarred Mary M.D. [id number]
--- NOTE | 2023-04-13 18:46 | XRR_ITS ---
PROCEDURE INFORMATION: Exam: XR Chest Exam date and time: 04/13/2023 7:00 PM Age: 72 years old Clinical indication: Other: AMS; Prior surgery; Surgery date: <1 month; Surgery type: Pacemaker TECHNIQUE: Imaging protocol: Radiologic exam of the chest. Views: 1 view. COMPARISON: 1. CR (CHEST, ) 03/24/2023 8:32 PM 2. CR XR chest 1V [id number] 04/26/2017 12:49 PM FINDINGS: Tubes, catheters and devices: Dual lead cardiac pacemaker with left chest generator shows intact leads terminating at the expected right atrium and right ventricle. Lungs: Mild left lower lung subsegmental atelectasis versus scarring. No consolidation. Right lower lung calcified granuloma. Pleural spaces: Unremarkable. No pleural effusion. No pneumothorax. Heart/Mediastinum: Stable prominence of the cardiac silhouette. Diaphragm: Asymmetric elevation of the left hemidiaphragm, stable. Bones/joints: Unremarkable. XR/XR chest 1V portable [id number] IMPRESSION: No acute findings.
[2023-04-13 18:47] VITALS: BP 115/62; O2SAT 98
--- NOTE | 2023-04-13 18:47 | W.ED.RECABL ---
HPI - Recheck/Abnormal Lab/Rx General: Chief Complaint: Recheck/Abnormal Lab/Rx Stated Complaint: abnoraml labs Time Seen by Provider: 04/13/23 18:36 Source: patient and family Mode of arrival: ambulatory History of Present Illness: 72-year-old male is here with family he has a history of cirrhosis of the liver they state that he has been confused along with unsteady over the last 2 days. They state [facility] and was called at come to the ER she had elevated bilirubin and ammonia level. Family states he has not lactulose has never had an elevated ammonia in the past. Patient here is answering most my questions appropriately does have some confusion he denies any pain anywhere. Review of Systems Const: Denies: fever(s) or chills Eyes: Denies: eye discomfort ENMT: Denies: throat pain or dental pain Card: Denies: chest pain Resp: Denies: dyspnea GI: Denies: abdominal pain, nausea, vomiting or diarrhea : Denies: dysuria Musc: Denies: neck pain or back pain Skin/Breast: Denies: rash Neuro: Reports: confusion; Denies: headache(s) Psych: Denies: depression PFSH ED PFSH: Medical History [id number] deficiency Atrial fibrillation Sleep apnea Surgical History History of tonsillectomy Family History Father Liver disease Social History Smoking and tobacco status: never smoked Alcohol intake: former Substance/Drug Use: never Physical Exam Const: COMMON NORMALS: patient oriented x3 HENMT: COMMON NORMALS: normocephalic and atraumatic HEAD & SCALP: normocephalic and atraumatic Eye: COMMON NORMALS: Equal, round and reactive pupils present PUPIL: Yes Equal, round and reactive pupils present OTHER: scleral icterus Neck/C-Spine: COMMON NORMALS: full ROM and supple Chest: COMMONS NORMALS: normal inspection of the chest and normal palpation of entire chest wall Resp: COMMON NORMALS: normal respiratory effort, No retractions, No use of accessory muscles and clear to auscultation bilaterally AUSCULTATION: clear to auscultation bilaterally Cardio: COMMON NORMALS: regular rate, regular rhythm and No murmurs present (Cardio) RATE: regular rate RHYTHM: regular rhythm GI: COMMON NORMALS: Normal to inspection, nondistended, normoactive bowel sounds present, Soft to palpation, non-tender and no masses PALPATION: Yes Soft to palpation Extremity: COMMON NORMALS: normal to inspection and full ROM Neuro: COMMON NORMALS: patient oriented x3, moves all extremities and no focal motor deficits Psych: COMMON NORMALS: mental status grossly normal, Normal thought process present and cooperative THOUGHT PROCESS: Normal thought process present Skin: COMMON NORMALS: no rashes or lesions noted and no wounds NARRATIVE SKIN EXAM: jaundiced GENERAL SKIN EXAM: no rashes or lesions noted Course Vital Signs: Vital signs: Vital Signs Temperature 97.9 F 04/13/23 18:00 Pulse Rate 60 04/13/23 18:00 Respiratory Rate 18 04/13/23 18:00 Blood Pressure 115/62 04/13/23 18:47 Pulse Oximetry 98 04/13/23 18:47 Oxygen Delivery Me thod Room Air 04/13/23 18:47 MDM - Recheck/Abnormal Lab/Rx Medical Decision Making Patient presents with history of cirrhosis had some confusion likely from hepatic encephalopathy his ammonia level is elevated here. He has no signs of infection spoke to hospitalist he is stable for admission here we will admit to [facility]. Medical Records I reviewed the patient's medical records. Lab Data I reviewed the patient's lab results. 04/13/23 18:45 04/13/23 18:45 Radiology Impressions Chest X-Ray 04/13/23 18:46 IMPRESSION: No acute findings. Head CT 04/13/23 18:50 IMPRESSION: No acute intracranial abnormality. Laboratory Results WBC 8.28 10^3/uL (3.29-11.43) 04/13/23 18:45 RBC 3.51 10^6/uL (3.85-5.65) L 04/13/23 18:45 Hgb 13.30 g/dL (11.27-16.99) 04/13/23 18:45 Hct 37.7 % (37-53) 04/13/23 18:45 MCV 107.4 fl (82-101) H 04/13/23 18:45 MCH 37.9 pg (27-33) H 04/13/23 18:45 MCHC 35.3 g/dL (30-55) 04/13/23 18:45 RDW 14.3 % (12.1-15.1) 04/13/23 18:45 Plt Count 146 10^3/cmm (157-399) L 04/13/23 18:45 MPV 9.8 fL (7.4-10.4) 04/13/23 18:45 Neut % (Auto) 49.2 % 04/13/23 18:45 Lymph % (Auto) 31.8 % 04/13/23 18:45 [place] % (Auto) 12.7 % 04/13/23 18:45 Eos % (Auto) 3.9 % 04/13/23 18:45 Baso % (Auto) 1.9 % 04/13/23 18:45 Neut # (Auto) 4.08 10^3/uL (1.8-7.7) 04/13/23 18:45 Lymph # (Auto) 2.6 10^3/uL (0.8-4.8) 04/13/23 18:45 [place] # (Auto) 1.1 10^3/uL (0.2-0.9) H 04/13/23 18:45 Eos # (Auto) 0.3 10^3/uL (0.0-0.8) 04/13/23 18:45 Baso # (Auto) 0.2 10^3/uL (0.0-0.1) H 04/13/23 18:45 Nucleated RBC % (auto) 0 % 04/13/23 18:45 Nucleated RBCs # 0.0 /100WBC 04/13/23 18:45 PT 29.30 SECONDS (12.1-14.9) H 04/13/23 18:45 INR 2.65 (0.8-1.2) H 04/13/23 18:45 Sodium 137 mmol/L (136-145) 04/13/23 18:45 Potassium 3.9 mmol/L (3.5-5.1) 04/13/23 18:45 Chloride 104 mmol/L (98-107) 04/13/23 18:45 Carbon Dioxide 28 mmol/L (22-29) 04/13/23 18:45 Anion Gap 8.9 (5-19) 04/13/23 18:45 BUN 13 mg/dL (8-23) 04/13/23 18:45 Creatinine 0.6 mg/dL (0.7-1.2) L 04/13/23 18:45 GFR Calculation 133.2 mL/min (90-130) H 04/13/23 18:45 Glucose 113 mg/dL (65-115) 04/13/23 18:45 POC Glucose 106 mg/dL (70-110) 04/13/23 19:38 Calculated Osmolality 285 mOsm/kg (285-295) 04/13/23 18:45 Calcium 8.1 mg/dL (8.5-10.5) L 04/13/23 18:45 Total Bilirubin 4.2 mg/dL (0.15-1.2) H 04/13/23 18:45 AST 39 U/L (0-40) 04/13/23 18:45 ALT 23 U/L (0-41) 04/13/23 18:45 Alkaline Phosphatase 167 U/L (40-130) H 04/13/23 18:45 Ammonia 129 umol/L (16-60) H 04/13/23 18:46 Total Protein 6.3 g/dL (6.6-8.7) L 04/13/23 18:45 Albumin 2.5 g/dL (3.5-5.2) L 04/13/23 18:45 Globulin 3.8 g/dL (1.3-4.6) 04/13/23 18:45 EKG Data EKG 1: I personally reviewed and interpreted this EKG as follows: EKG interpretation date: 04/13/23 EKG interpretation time: 19:11 Interpretation: paced hr [address] or t wave abnormalities qrs 129 qtc 366 Discharge Plan Discharge Patient Disposition: Admitted As Inpatient Clinical Impression: Encephalopathy, hepatic, Cirrhosis Condition: Stable Prescriptions: No Action flecainide 100 mg tablet 300 mg PO DAILY PRN (Reason: atrial fibrillation) Qty: 90 0RF Rx Instructions: take when in atrial fibrillation 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
--- NOTE | 2023-04-13 18:50 | CTR_ITS ---
PROCEDURE INFORMATION: Exam: CT Head Without Contrast Exam date and time: 04/13/2023 7:42 PM Age: 72 years old Clinical indication: Altered mental status/memory loss; Additional info: AMS TECHNIQUE: Imaging protocol: Computed tomography of the head without contrast. Radiation optimization: All CT scans at this facility use at least one of these dose optimization techniques: automated exposure control; mA and/or kV adjustment per patient size (includes targeted exams where dose is matched to clinical indication); or iterative reconstruction. REPORTING DATA: Count of CT and Cardiac NM exams in prior 12 months: This patient has received 0 known CTs and 0 known cardiac nuclear medicine studies in the 12 months prior to the current study. COMPARISON: CT head wo con* [id number] 04/26/2017 12:48 PM RADIATION DOSE METRICS: Total DLP (mGy-cm): 1076.61 FINDINGS: Brain: Mild diffuse cerebral atrophy, consistent with patient's age. No hemorrhage. Preserved gates-white matter differentiation. Mild patchy cerebral white matter hypodensities similar to 2017 likely on the basis of chronic microvascular ischemic change. No mass effect. Cerebral ventricles: Ventricles are in proportion to the degree of atrophy. Paranasal sinuses: Visualized sinuses are unremarkable. No fluid levels. Mastoid air cells: Visualized mastoid air cells are well aerated. Bones/joints: Unremarkable. No acute fracture. Soft tissues: Mild right parietal scalp soft tissue thickening. CT/CT head wo con* [id number] IMPRESSION: No acute intracranial abnormality.
[2023-04-13 18:57] LABS: Basophils # 0.2 10^3/uL (0.0-0.1); Basophils % 1.9 %; Eosinophils # 0.3 10^3/uL (0.0-0.8); Eosinophils % 3.9 %; Hematocrit 37.7 % (37-53); Lymphocytes # 2.6 10^3/uL (0.8-4.8); Lymphocytes % 31.8 %; Mean Corpuscular HGB Conc 35.3 g/dL (30-55); Mean Corpuscular Hemoglobin 37.9 pg (27-33); Mean Corpuscular Volume 107.4 fl (82-101); Mean Platelet Volume 9.8 fL (7.4-10.4); Monocytes # 1.1 10^3/uL (0.2-0.9); Monocytes % 12.7 %; Neutrophils # 4.08 10^3/uL (1.8-7.7); Neutrophils % 49.2 %; Nucleated Red Blood Cells % 0 %; Platelet Count 146 10^3/cmm (157-399); Red Blood Count 3.51 10^6/uL (3.85-5.65); Red Cell Distribution Width 14.3 % (12.1-15.1); White Blood Count 8.28 10^3/uL (3.29-11.43)
[2023-04-13 19:15] LABS: INR 2.65 (0.8-1.2)
[2023-04-13 19:21] LABS: Ammonia 129 umol/L (16-60)
[2023-04-13 19:23] LABS: Alanine Aminotransferase 23 U/L (0-41); Albumin Level 2.5 g/dL (3.5-5.2); Alkaline Phosphatase 167 U/L (40-130); Anion Gap 8.9 (5-19); Aspartate Amino Transferase 39 U/L (0-40); Blood Urea Nitrogen 13 mg/dL (8-23); Calcium 8.1 mg/dL (8.5-10.5); Carbon Dioxide 28 mmol/L (22-29); Chloride 104 mmol/L (98-107); Globulin 3.8 g/dL (1.3-4.6); Glomerular Filtration Rate 133.2 mL/min (90-130); Glucose 113 mg/dL (65-115); Osmolality Calculated 285 mOsm/kg (285-295); Potassium 3.9 mmol/L (3.5-5.1); Sodium 137 mmol/L (136-145); Total Bilirubin 4.2 mg/dL (0.15-1.2); Total Protein 6.3 g/dL (6.6-8.7)
[2023-04-13 19:24] LABS: Creatinine Clr Calc Pharmacy 95.1237
[2023-04-13 19:42] LABS: Glucose Point of Care 106 mg/dL (70-110)
[2023-04-13 20:08] VITALS: PULSE 60; RESP 17; O2SAT 98
[2023-04-13 20:09] LABS: Add Urine Microscopic? NO; Charge for UA Resulting for Rev
[2023-04-13 20:13] LABS: Bilirubin Urine 1+ (Negative); Blood Urine Neg (Negative); Glucose Urine UA Norm (Normal); Ketones Urine Negative (Negative); Leukocyte Esterase Urine Negative (Negative); Nitrate Urine Negative (Negative); Protein Urine Neg (Negative); Specific Gravity, Urine 1.015 (1.005-1.030); Urine Appearance Clear (CLEAR); Urine Color Yellow (Yellow); Urobilinogen Urine 4+ mg/dL (Negative); pH Urine 6 (5-7)
--- NOTE | 2023-04-13 21:03 | P.HP_ITS ---
Providers/Chief Complaint Admitting Physician: Andrea Villareal Primary Care Provider: Ramona Cr MD Chief Complaint: abnoraml labs History of Present Illness Pleasant 72-year-old gentleman with history of alpha-1 antitrypsin deficiency, liver cirrhosis, previously had an EGD, no history of ulcers, is on PPI, seen by hepatology at [facility], previously reportedly was doing well, by MELD score liver transplantation had not yet been considered. Had a hospi talization here recently due to bradycardia, at which time also had cardiogenic shock, hypotension, status post pacemaker implantation. Metoprolol has been discontinued other than as needed. On flecainide for A-fib, Eliquis. Last several days has been confused at home, disoriented, although otherwise no fever, no abdominal pain, in ER noted new hyperammonemia, ammonia 129. He has not been on lactulose so far. He otherwise denies any fever or chills, no abdominal pain or discomfort, no nausea or vomiting, no diarrhea. No rashes. No other unusual complaints. He is noted to have hyperbilirubinemia which has been persistent although is worse now, bilirubin up to 4.2. Alk phos 167. AST and ALT are normal. INR is 2.65. His reports also that he had a prior glucose reading of 60. They do not normally check glucose at home. He has been getting on and off hematuria even before started Eliquis. There was a question of possible kidney stone. He uses CPAP nightly for SAILAJA. Review of Systems Const: Denies: fever(s), chills, body aches or malaise ENMT: Denies: throat pain Card: Denies: chest pain, edema, pre-syncope or dyspnea on exertion Resp: Denies: dyspnea, productive cough, change in phlegm color or hemoptysis GI: Denies: abdominal pain, nausea, vomiting, diarrhea, constipation, hematochezia or melena : Denies: flank pain, difficulty urinating, urinary frequency or hematuria Musc: Denies: back pain, joint swelling or joint redness Skin/Breast: Denies: rash or new lesions Neuro: Reports: confusion; Denies: headache(s), numbness in extremities, weakness in extremities, dizziness or seizure-like activity Medications/Allergies Home Medications Medication Instructions Recorded Confirmed Last Taken Type cholecalciferol (vitamin D3) 50 100 mcg PO DAILY 03/24/23 03/24/23 03/24/23 History mcg (2,000 unit) tablet (Vitamin D3) pantoprazole 40 mg tablet,delayed 40 mg PO DAILY 03/24/23 03/24/23 03/24/23 08:00 History release (Protonix) flecainide 100 mg tablet 300 mg PO DAILY PRN atrial 03/29/23 Unknown Rx fibrillation #90 tabs Allergies Allergy/AdvReac Type Severity Reaction Status Date / Time bee venom protein (honey bee) Allergy Severe ALGY-Anaphy Unverified 04/13/23 21:03 laxis PFSH Acute PFSH: Medical History (Updated 04/13/23 @ 21:09 by Andrea Villareal MD) [id number] deficiency Atrial fibrillation Pacemaker Sleep apnea Surgical History History of tonsillectomy Family History Father Liver disease Social History Smoking and tobacco status: never smoked Alcohol intake: former Substance/Drug Use: never Vitals/I&O/Wt Last Vital Signs Temp 97.9 F 04/13/23 18:00 Pulse 60 04/13/23 20:08 Resp 17 04/13/23 20:08 BP 115/62 04/13/23 18:47 Pulse Ox 98 04/13/23 20:08 O2 Del Method Room Air 04/13/23 20:08 Weight last 48 hrs Weight 86.183 kg Physical Exam Narrative: Accompanied by his Const: COMMON NORMALS: alert GENERAL APPEARANCE: cooperative ORIENTATION/CONSCIOUSNESS: Yes awake HENMT: COMMON NORMALS: oropharynx normal Eye: OTHER: Mild scleral icterus Neck/C-Spine: COMMON NORMALS: no JVD Resp: COMMON NORMALS: normal respiratory effort and clear to auscultation bilaterally AUSCULTATION: clear to auscultation bilaterally Cardio: COMMON NORMALS: no JVD, regular rhythm, S1 normal heart sound present, S2 normal heart sound present and No murmurs present (Cardio) RHYTHM: regular rhythm HEART SOUNDS: S1 normal heart sound present and S2 normal heart sound present GI: COMMON NORMALS: Normal to inspection, nondistended, normoactive bowel sounds present, Soft to palpation and non-tender PALPATION: Yes Soft to palpation Extremity: COMMON NORMALS: no joint enlargement and no pedal edema Neuro: COMMON NORMALS: moves all extremities SENSORIUM/ORIENTATION: Yes alert Skin: COMMON NORMALS: no rashes or lesions noted GENERAL SKIN EXAM: no rashes or lesions noted Data 04/13/23 18:45 04/13/23 18:45 A&P Assessment and plan (1) Encephalopathy, hepatic: Acute metabolic encephalopathy secondary to hepatic encephalopathy with hyperammonemia, ammonia up to 129. Seems some decompensation of liver cirrhosis, INR is 2.67. Platelets 146. Sodium is normal. AST and ALT normal. Hyperbilirubinemia 4.2, alk phos 167. Previously was assessed by hepatology, at that time with MELD score and his condition there was no consideration of transplant since his says he was doing so well. She is surprised that his condition has deteriorated even though he was doing so well recently. She is worried about the recent episode of hospitalization, possibly number of medications contributing. Discussed with her concerns are certainly episode of cardiogenic shock, hypotension could have contributed to some decline in his condition, otherwise certainly alpha-1 antitrypsin cirrhosis may be anticipated to continue to progress. Will review with pharmacy medications to see if any can be contributing. Start lactulose, received 30 g in ER, continue 20 g every 6 hours until achieving 2-3 soft bowel movements in a day. Currently is not agitated, answering questions, following directions, calm, cooperative, at the moment not at risk of wandering. At this time no need for one-to-one sitter. Fall precautions. Does not appear to have any symptoms of SBP, afebrile, no leukocytosis. At this time not entirely clear cause for decompensation other than possible recent cardiac issues cardiogenic shock. Otherwise his CHF symptoms his states have been much better, no lower extremity edema, ever since he had the pacemaker implanted. His also records prior recorded glucose down to 60, no history of diabetes, not on hypoglycemics. Monitor for liver failure. No hypoglycemia here currently. Consider setting up with glucometer. He has a return appointment with hepatology for August, but given his decompensation would consider making an appointment sooner after discharge. (2) Cirrhosis: As above, would consider following up with pathology sooner after discharge than August given some decompensation of his condition, his has also noticed some episodes of hypoglycemia. Has had EGD in the past, no varices, but is on PPI. (3) Hyperbilirubinemia: Noted worsened hyperbilirubinemia up to 4.2, alk phos 167. Will assess with gallbladder ultrasound, although does not have abdominal pain, no GI symptoms. Does have seem like decompensation of liver cirrhosis, and possibly this is the reason for worsening hyperbilirubinemia. However, also appears to have been recently started on Eliquis, Eliquis does appear to have possible associated hyperbilirubinemia, alk phos elevation, could be secondary to Eliquis as well. Discussed with them, please review additional medications with pharmacy tomorrow to see if any other medications could be contributing. Monitor for liver failure. (4) Atrial fibrillation: Flecainide as needed for A-fib with RVR. For now as above switch from Eliquis to Lovenox. Reassess liver parameters. Continue switch from Eliquis to another agent. No longer takes metoprolol scheduled, takes it only as needed. (5) Hypoglycemia: reports had at some point his glucose measured at 60. Aberrancy hypog lycemia here, however, concern may be with source of decompensation, monitor for liver failure. Please consider providing extra supplies at the time of discharge as well so that can monitor his blood home. Would consider sooner follow-up with hepatology. (6) Intermittent gross hematuria: On anticoagulation. Reports some intermittent gross hematuria with red blood, states even before starting Eliquis. There was some question of possible nephrolithiasis previously. Will assess with kidney stone protocol CT as he otherwise would benefit from continuation of anticoagulation if able to tolerate. [facility] for [facility]. (7) Sleep apnea: Requesting nightly CPAP. Plan Status post PPM Remote history of EtOH, has stopped a while back, no longer drinking at all. Please reconcile medications once entered. Discussed with ER physician. ER documentation reviewed. Attestations Medical Necessity Statement*: Place in observation for additional assessment management of acute metabolic encephalopathy, hepatic follow-up, hyperbilirubinemia and gentleman with liver cirrhosis, episodes of hypoglycemia, hematuria, additional comorbidities as above. Diagnoses Encephalopathy, hepatic K76.82 Cirrhosis K74.60 Hyperbilirubinemia E80.6 Atrial fibrillation I48.91 Hypoglycemia E16.2 Intermittent gross hematuria R31.0 Sleep apnea G47.30
[2023-04-13 21:11] VITALS: BP 125/80; PULSE 60; RESP 16; TEMP 36.8; O2SAT 99
--- NOTE | 2023-04-13 21:11 | US_ITS ---
WS: [id number] RIGHT UPPER QUADRANT ULTRASOUND HISTORY: hyperbilirubinemia COMPARISON: None available. Liver: 10.0 cm in length. Liver appears small caliber with diffuse coarse echotexture and loss of the normal portal vein triads. Surface of the liver is very slightly lobulated. No mass or bile duct dil atation. Portal Vein: No flow is identified within the main portal vein. This may be secondary to portal vein thrombosis or occlusion. No evidence for thrombus identified on the recent CT. Gallbladder: Normally distended. Cholelithiasis seen on the CT of 04/13/2023 is not definitely identif ied by ultrasound. CBD: 0.5 cm Pancreas: Completely obscured. Right kidney: 10.4 cm in length. Normal size and echogenicity. No hydronephrosis or mass. Aorta and IVC: Poorly visualized. No ascites. IMPRESSION: 1. Liver appears cirrhotic. No mass identified. 2. Cholelithiasis seen on the recent CT not identified by ultrasound. No evidence for acute cholecyst itis. 3. No flow identified in the main portal vein. May be thrombosed. No secondary findings of portal vei n thrombosis noted on the recent CT. 4. No ascites.
--- NOTE | 2023-04-13 21:11 | CTR_ITS ---
PROCEDURE INFORMATION: Exam: CT Abdomen And Pelvis Without Contrast Exam date and time: 04/13/2023 11:15 PM Age: 72 years old Clinical indication: Other: Hematuria; Additional info: Intermittent hematuria TECHNIQUE: Imaging protocol: Computed tomography of the abdomen and pelvis without contrast. Radiation optimization: All CT scans at this facility use at least one of these dose optimization techniques: automated exposure control; mA and/or kV adjustment per patient size (includes targeted exams where dose is matched to clinical indication); or iterative reconstruction. REPORTING DATA: Count of CT and Cardiac NM exams in prior 12 months: This patient has received 0 known CTs and 0 known cardiac nuclear medicine studies in the 12 months prior to the current study. COMPARISON: CR (CHEST, ) 04/13/2023 7:00 PM RADIATION DOSE METRICS: Total DLP (mGy-cm): 763.55 FINDINGS: Tubes, catheters and devices: Pacemaker leads are present in the heart. Lungs: Partially visualized left basilar atelectasis. The left diaphragm is also elevated and the full lung base is not seen. Calcified granuloma in the right lower lobe. Liver: Normal. No mass. Gallbladder and bile ducts: Normal. No calcified stones. No ductal dilation. Pancreas: Normal. No ductal dilation. Spleen: Normal. No splenomegaly. Adrenal glands: Normal. No mass. Kidneys and ureters: Normal. No hydronephrosis. Stomach and bowel: No bowel obstruction or ileus. Appendix: The appendix is normal. Intraperitoneal space: See Vasculature finding. Vasculature: Varices in the left upper quadrant. No ascites. Scattered calcified plaque in the abdominal aorta. Lymph nodes: Unremarkable. No enlarged lymph nodes. Urinary bladder: Unremarkable as visualized. Reproductive: Unremarkable as visualized. Bones/joints: Large Schmorl's nodes in the L2 and L4 vertebral bodies. Chronic degenerative disc disease at L5-S1. Soft tissues: Unremarkable. CT/CT kidney stone [id number] IMPRESSION: 1. No acute abdominopelvic findings. 2. Elevated left diaphragm. Diaphragmatic paralysis is a possibility 3. Chronic and incidental findings as described.
[2023-04-13] MEDS: lactulose oral liq 20 gm/30 mL UDC 30 GM PO (21:36)
[2023-04-13] MEDS: enoxaparin 100 mg/mL Syringe 85 MG SUBCUT (21:37)
--- NOTE | 2023-04-13 21:54 | PC.NURSE ---
ADMIT NOTE Pt received to floor from ED at 2104. Is alert with some confusion as to month & date. Does know why he is admitted. Was given po dose of 30gm Lactulose. Was reported by ED nurse that the first dose was refused until he gets closer to a bathroom . Denies pain. Does tell me he has been sleepy at home. Sclera of eyes is jaundiced. IV patent to left ac area. Oriented to room. Has order for US so will be NPO. RN to complete admission assessment
[2023-04-13 23:25] VITALS: PULSE 60; RESP 16; O2SAT 98
[2023-04-14] VITALS (7 sets, daily range): BP systolic 103–131; BP diastolic 64–80; PULSE 15–60; RESP 15–17; TEMP 36.4–36.9; O2SAT 97–98
[2023-04-14] MEDS: lactulose oral liq 20 gm/30 mL UDC PO ×3 (03:02→20:31)
[2023-04-14 05:16] LABS: Basophils # 0.2 10^3/uL (0.0-0.1); Basophils % 2.2 %; Eosinophils # 0.3 10^3/uL (0.0-0.8); Eosinophils % 4.1 %; Hematocrit 35.2 % (37-53); Lymphocytes % 40.4 %; Mean Corpuscular HGB Conc 35.5 g/dL (30-55); Mean Corpuscular Hemoglobin 37.1 pg (27-33); Mean Corpuscular Volume 104.5 fl (82-101); Mean Platelet Volume 10.1 fL (7.4-10.4); Neutrophils # 2.94 10^3/uL (1.8-7.7); Neutrophils % 39.9 %; Nucleated Red Blood Cells % 0 %; Platelet Count 146 10^3/cmm (157-399); Red Blood Count 3.37 10^6/uL (3.85-5.65); White Blood Count 7.36 10^3/uL (3.29-11.43)
[2023-04-14 05:25] LABS: INR 2.24 (0.8-1.2)
[2023-04-14 05:43] LABS: Alanine Aminotransferase 21 U/L (0-41); Albumin Level 2.3 g/dL (3.5-5.2); Alkaline Phosphatase 151 U/L (40-130); Anion Gap 8.7 (5-19); Aspartate Amino Transferase 40 U/L (0-40); Blood Urea Nitrogen 11 mg/dL (8-23); Carbon Dioxide 30 mmol/L (22-29); Chloride 106 mmol/L (98-107); Globulin 3.6 g/dL (1.3-4.6); Glomerular Filtration Rate 133.2 mL/min (90-130); Glucose 99 mg/dL (65-115); Osmolality Calculated 291 mOsm/kg (285-295); Potassium 3.7 mmol/L (3.5-5.1); Sodium 141 mmol/L (136-145); Thyroid Stimulating Hormone 2.78 uIU/mL (0.27-4.20); Total Bilirubin 4.1 mg/dL (0.15-1.2); Total Protein 5.9 g/dL (6.6-8.7)
[2023-04-14 05:50] LABS: Creatinine Clr Calc Pharmacy 95.1237
[2023-04-14 08:45] LABS: Ammonia 74 umol/L (16-60)
--- NOTE | 2023-04-14 10:43 | PC.CHAP ---
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 supervisor visit [] Patient/Family/Request visit [] Outpatient visit [] Follow-up visit [] Physician referral [] Code/Alert [x] Routine visit [] Staff referral [] Actively dying [] Patient sleeping [x] Family support [] [] Out of room [] Palliative care [] [] Receiving care in room [] Pre-surgical visit [] Trauma [] Long length of stay [] ICU visit [] Other: Relational/Emotional Strength [x] Patient feels connected with others/family/visitors/staff [] Distress [] Loneliness/isolation [] Abandonment Spirituality of Patient [x] Person of [place] [] Attends Sabianism of their [place] [x] Believes in Prayer [] Reads Bible or Anglican materials [] There are Spiritual issues to be addressed 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[employer] 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 [x] Prayer [x Active listening [] Non-anxious presence [x Spiritual/emotional support [] Crisis/trauma care [] Spiritual counseling [] Bereavement support [] Provided bereavement packet [] Provided Bible/devotional materials [] Provided toy/stuffed animal, coloring book to patient or family member [] Provided Communion [] Anointing/[place] [] Salvation [x Completed spiritual assessment [] Other: Impact on Illness or Injury [] Angry [] Fearful [] Anxious [] Often cries [] Exhaustion [] Unable to work [] Unable to attend jehovah's witness [] Unable to walk/stand [] Unable to read [] Unable to drive [] Unable to eat/drink [] Unable to sleep [] Unable to be with family [] Patient intubated [] Other: Summary Time spent with patient 20 min
[2023-04-14 12:19] LABS: Vitamin B12 1385 pg/mL (232-1245)
[2023-04-14] MEDS: enoxaparin 100 mg/mL Syringe 85 MG SUBCUT ×2 (12:46→20:32)
[2023-04-14] MEDS: pantoprazole DR 40 mg Tablet PO (12:46)
[2023-04-14] MEDS: flecainide 100 mg Tablet PO (12:46)
--- NOTE | 2023-04-14 14:32 | P.PN_ITS ---
Subjective Subjective: Admitted overnight. H&P labs appreciated. Today morning seen with family at bedside. Patient is awake and alert x3. Sitting comfortably in bed. Able to complete conversation. As per nurse patient did have some fogginess earlier today morning. states he is improving and almost back to his baseline. Patient reported to have 4-5 bowel movement since admission last night. Has remained hemodynamically stable and afebrile. Appreciate blood work for no leukocytosis, mild thrombocytopenia which is stable at 146, stable CMP. Vitals/I&O/Wt Last Vital Signs Temp 97.8 F 04/14/23 12:00 Pulse 60 04/14/23 12:00 Resp 16 04/14/23 12:00 BP 116/77 04/14/23 12:00 Pulse Ox 98 04/14/23 12:00 O2 Del Method Room Air 04/14/23 04:00 04/13/23 04/14/23 04/14/23 22:59 06:59 14:59 Intake Total 200 / 200 600 / 600 Balance 200 / 200 600 / 600 Weight last 48 hrs Weight 86.183 kg Physical Exam Narrative: Accompanied by his Const: COMMON NORMALS: alert GENERAL APPEARANCE: cooperative ORIENTATION/CONSCIOUSNESS: Yes awake HENMT: COMMON NORMALS: oropharynx normal Eye: OTHER: Mild scleral icterus Neck/C-Spine: COMMON NORMALS: no JVD Resp: COMMON NORMALS: normal respiratory effort and clear to auscultation bilaterally AUSCULTATION: clear to auscultation bilaterally Cardio: COMMON NORMALS: no JVD, regular rhythm, S1 normal heart sound present, S2 normal heart sound present and No murmurs present (Cardio) RHYTHM: regular rhythm HEART SOUNDS: S1 normal heart sound present and S2 normal heart sound present GI: COMMON NORMALS: Normal to inspection, nondistended, normoactive bowel sounds present, Soft to palpation and non-tender PALPATION: Yes Soft to palpation Extremity: COMMON NORMALS: no joint enlargement and no pedal edema Neuro: COMMON NORMALS: moves all extremities SENSORIUM/ORIENTATION: Yes alert Skin: COMMON NORMALS: no rashes or lesions noted GENERAL SKIN EXAM: no rashes or lesions noted Data 04/14/23 04:37 04/14/23 04:37 A&P Assessment and plan (1) Encephalopathy, hepatic: Acute metabolic encephalopathy secondary to hepatic encephalopathy. Ammonia levels elevated on admission. Resolving with multiple bowel movements secondary to lactulose. Does have a history of liver cirrhosis being followed up as an outpatient at [facility] though not deemed a candidate yet for liver transplant as patient has been doing pretty well prior to recent admission. No abdominal pain, no leukocytosis. SBP less likely. Continue with lactulose at current dose for now. Target 5-6 good bowel movements within next 24 hours. Repeat ammonia levels in a.m. Discussed the etiology and danger signs going forward with patient and patient's at bedside. Medical reconciliation done with at bedside. (2) Cirrhosis: As above, would consider following up with pathology sooner after discharge than August given some decompensation of his condition, his has also noticed some episodes of hypoglycemia. Has had EGD in the past, no varices, but is on PPI. (3) Hyperbilirubinemia: Noted worsened hyperbilirubinemia which is stable as compared to levels from admission. Denies any complaint of abdominal pain or dyspepsia. Gallbladder ultrasound appreciated. Check differentiated bilirubin. Check haptoglobin levels, GGT, LDH, hepatitis panel. Less likely though however, also appears to have been recently started on Eliquis, Eliquis does appear to have possible associated hyperbilirubinemia, alk phos elevation, could be secondary to Eliquis as well. Switch to full dose Lovenox on admission. We will continue to monitor. (4) Atrial fibrillation: Flecainide as needed for A-fib with RVR. Flecainide and metoprolol were discontinued on recent admission. Continue to hold off. It seems patient is on flecainide 100 mg twice daily For now as above switch from Eliquis to Lovenox. (5) Hypoglycemia: reports had at some point his glucose measured at 60. Aberrancy hypoglycemia here, however, concern may be with source of decompensation, monitor for liver failure. Have encouraged patient to continue checking blood sugars at home. Hypoglycemia protocol. (6) Intermittent gross hematuria: On anticoagulation. Reports some intermittent gross hematuria with red blood, states even before starting Eliquis. There was some question of possible nephrolithiasis previously. Will assess with kidney stone protocol CT as he otherwise would benefit from continuation of anticoagulation if able to tolerate. We will need referral through the [place] to urology for further assessment. (7) Sleep apnea: Requesting nightly CPAP. Plan Status post PPM Remote history of EtOH, has stopped a while back, no longer drinking at all. Please reconcile medications once entered. Discussed with ER physician. ER documentation reviewed. Attestations Medical Necessity Statement*: Requires further hospitalization for management of acute metabolic encephalopathy in setting of hepatic encephalopathy while mentation and bowel functions are monitored in a patient with history of baseline cirrhosis, worsening bilirubinemia Diagnoses Encephalopathy, hepatic K76.82 Cirrhosis K74.60 Hyperbilirubinemia E80.6 Atrial fibrillation I48.91 Hypoglycemia E16.2 Intermittent gross hematuria R31.0 Sleep apnea G47.30
[2023-04-14 15:31] LABS: Gamma Glutamyl Transferase 38 U/L (8-61); Lactate Dehydrogenase 242 U/L (135-225)
[2023-04-14 15:52] LABS: Hepatitis A Antibody IgM Non-Reactive (Nonreactive); Hepatitis B Core AB, Total Non-Reactive (Nonreactive); Hepatitis B Surface AB 148.3 (11.5-1000); Hepatitis B Surface Antigen Non-Reactive (Nonreactive); Hepatitis C Virus Antibody Non-Reactive (Nonreactive)
[2023-04-15 03:47] VITALS: BP 108/67; PULSE 59; RESP 17; TEMP 36.4; O2SAT 96
[2023-04-15 05:06] LABS: Basophils # 0.1 10^3/uL (0.0-0.1); Basophils % 2.1 %; Eosinophils # 0.3 10^3/uL (0.0-0.8); Eosinophils % 4.9 %; Hematocrit 33.5 % (37-53); Lymphocytes # 2.6 10^3/uL (0.8-4.8); Lymphocytes % 38.3 %; Mean Corpuscular HGB Conc 35.2 g/dL (30-55); Mean Corpuscular Hemoglobin 37.2 pg (27-33); Mean Corpuscular Volume 105.7 fl (82-101); Neutrophils # 2.74 10^3/uL (1.8-7.7); Neutrophils % 40.4 %; Nucleated Red Blood Cells % 0 %; Platelet Count 140 10^3/cmm (157-399); Red Blood Count 3.17 10^6/uL (3.85-5.65); Red Cell Distribution Width 13.8 % (12.1-15.1); White Blood Count 6.78 10^3/uL (3.29-11.43)
[2023-04-15 05:22] LABS: INR 2.08 (0.8-1.2)
[2023-04-15 05:28] LABS: Alanine Aminotransferase 21 U/L (0-41); Alkaline Phosphatase 147 U/L (40-130); Anion Gap 7.6 (5-19); Aspartate Amino Transferase 39 U/L (0-40); Blood Urea Nitrogen 8 mg/dL (8-23); Calcium 7.5 mg/dL (8.5-10.5); Carbon Dioxide 29 mmol/L (22-29); Chloride 105 mmol/L (98-107); Globulin 3.4 g/dL (1.3-4.6); Glomerular Filtration Rate 164.4 mL/min (90-130); Glucose 110 mg/dL (65-115); Osmolality Calculated 285 mOsm/kg (285-295); Potassium 3.6 mmol/L (3.5-5.1); Sodium 138 mmol/L (136-145); Total Protein 5.4 g/dL (6.6-8.7)
[2023-04-15 05:32] LABS: Creatinine Clr Calc Pharmacy 95.1237
[2023-04-15 05:45] LABS: Folate Level 7.7 ng/mL (4.5-32.2)
[2023-04-15 07:27] VITALS: BP 108/66; PULSE 59; RESP 18; O2SAT 98
[2023-04-15] MEDS: lactulose oral liq 20 gm/30 mL UDC PO (07:32)
[2023-04-15] MEDS: enoxaparin 100 mg/mL Syringe 85 MG SUBCUT (07:32)
[2023-04-15] MEDS: pantoprazole DR 40 mg Tablet PO (07:32)
[2023-04-15 10:59] VITALS: BP 122/82; PULSE 59; RESP 18; TEMP 36.5; O2SAT 99
--- NOTE | 2023-04-15 11:04 | P.DS_ITS ---
Discharge Providers Date of Admission: 04/13/23 20:40 Date of Discharge: April 15, 2023 Attending Provider at Admission: Andrea Villareal Attending Provider at Discharge: Otoniel Sykes MD Primary Care Provider: Ramona Cr MD Diagnoses at Discharge Discharge Diagnosis (1) Encephalopathy, hepatic: Status: Acute (2) Cirrhosis: Status: Acute (3) Hyperbilirubinemia: Status: Acute (4) Atrial fibrillation: Status: Acute (5) Hypoglycemia: Status: Acute (6) Intermittent gross hematuria: Status: Acute (7) Sleep apnea: Status: Acute Reason for Visit Reason for Visit: abnoraml labs Brief History: The history as per HPI: Pleasant 72-year-old gentleman with history of alpha-1 antitrypsin deficiency, liver cirrhosis, previously had an EGD, no history of ulcers, is on PPI, seen by hepatology at [facility], previously reportedly was doing well, by MELD score liver transplantation had not yet been considered.? Had a hospitalization here recently due to bradycardia, at which time also had cardiogenic shock, hypotension, status post pacemaker implantation.? Metoprolol has been discontinued other than as needed.? On flecainide for A-fib, Eliquis. Last several days has been confused at home, disoriented, although otherwise no fever, no abdominal pain, in ER noted new hyperammonemia, ammonia 129.? He has not been on lactulose so far.? He otherwise denies any fever or chills, no abdominal pain or discomfort, no nausea or vomiting, no diarrhea.? No rashes.? No other unusual complaints. He is noted to have hyperbilirubinemia which has been persistent although is worse now, bilirubin up to 4.2.? Alk phos 167.? AST and ALT are normal.? INR is 2.65. His reports also that he had a prior glucose reading of 60.? They do not normally check glucose at home. He has been getting on and off hematuria even before started Eliquis.? There was a question of possible kidney stone. He uses CPAP nightly for SAILAJA. Hospital Course Hospital Course Patient was admitted to the hospital for further evaluation and management of altered mental status in setting of hepatic encephalopathy and hyperammonemia. On admission he was found also found to have hyperbilirubinemia. He was started on lactulose therapy after which he had multiple bowel movements and his mentation gradually improved and he has been back to his baseline mentation for last 24 hours. For hyperbilirubinemia gallbladder ultrasound was done which is negative for acute abnormality. It is believed patient's symptoms are most likely in setting of decompensation related to recent admission for cardiogenic shock and bradycardia requiring pacemaker implantation. Patient's hospitalization was otherwise unremarkable. 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 He has been discharged in hemodynamically stable condition on lactulose 20 mg every 6 hours as needed for 2-3 soft bowel movements. Rifaximin 550 mg twice daily has been added to his medication list. Discharge details were discussed in detail with patient and patient's spouse at bedside side and they verbalized understanding. Physical Exam Narrative: Accompanied by his Const: COMMON NORMALS: alert GENERAL APPEARANCE: cooperative ORIENTATION/CONSCIOUSNESS: Yes awake HENMT: COMMON NORMALS: oropharynx normal Eye: OTHER: Mild scleral icterus Neck/C-Spine: COMMON NORMALS: no JVD Resp: COMMON NORMALS: normal respiratory effort and clear to auscultation bilaterally AUSCULTATION: clear to auscultation bilaterally Cardio: COMMON NORMALS: no JVD, regular rhythm, S1 normal heart sound present, S2 normal heart sound present and No murmurs present (Cardio) RHYTHM: regular rhythm HEART SOUNDS: S1 normal heart sound present and S2 normal heart sound present GI: COMMON NORMALS: Normal to inspection, nondistended, normoactive bowel sounds present, Soft to palpation and non-tender PALPATION: Yes Soft to pa lpation Extremity: COMMON NORMALS: no joint enlargement and no pedal edema Neuro: COMMON NORMALS: moves all extremities SENSORIUM/ORIENTATION: Yes alert Skin: COMMON NORMALS: no rashes or lesions noted GENERAL SKIN EXAM: no rashes or lesions noted Discharge Data Studies Completed and Pending Completed Studies During Hospitalization Category Date Time Status CT head wo con* [id number] Stat Cat Scan 04/13/23 18:[address] kidney stone 12215 Routine Cat Scan 04/13/23 21:11 Completed CXRP [XR chest 1V portable 16162] Stat Exams 04/13/23 18:46 Completed US gall bladder [id number] Routine Ultrasound 04/13/23 21:11 Completed Pending at discharge Category Date Time Status Complete Blood Count w/Auto AM LABS Lab 04/16/23 04:00 Ordered Comprehensive Metabolic Panel AM LABS Lab 04/16/23 04:00 Ordered Prothrombin Time INR AM LABS Lab 04/16/23 04:00 Ordered Radiology Impressions Chest X-Ray 04/13/23 18:46 IMPRESSION: No acute findings. Head CT 04/13/23 18:50 IMPRESSION: No acute intracranial abnormality. Abdomen/Pelvis CT 04/13/23 21:11 IMPRESSION: 1. No acute abdominopelvic findings. 2. Elevated left diaphragm. Diaphragmatic paralysis is a possibility 3. Chronic and incidental findings as described. Laboratory Results WBC 6.78 10^3/uL (3.29-11.43) 04/15/23 04:50 RBC 3.17 10^6/uL (3.85-5.65) L 04/15/23 04:50 Hgb 11.80 g/dL (11.27-16.99) 04/15/23 04:50 Hct 33.5 % (37-53) L 04/15/23 04:50 MCV 105.7 fl (82-101) H 04/15/23 04:50 MCH 37.2 pg (27-33) H 04/15/23 04:50 MCHC 35.2 g/dL (30-55) 04/15/23 04:50 RDW 13.8 % (12.1-15.1) 04/15/23 04:50 Plt Count 140 10^3/cmm (157-399) L 04/15/23 04:50 MPV 10.0 fL (7.4-10.4) 04/15/23 04:50 Neut % (Auto) 40.4 % 04/15/23 04:50 Lymph % (Auto) 38.3 % 04/15/23 04:50 Mckean % (Auto) 14.0 % 04/15/23 04:50 Eos % (Auto) 4.9 % 04/15/23 04:50 Baso % (Auto) 2.1 % 04/15/23 04:50 Neut # (Auto) 2.74 10^3/uL (1.8-7.7) 04/15/23 04:50 Lymph # (Auto) 2.6 10^3/uL (0.8-4.8) 04/15/23 04:50 Mckean # (Auto) 1.0 10^3/uL (0.2-0.9) H 04/15/23 04:50 Eos # (Auto) 0.3 10^3/uL (0.0-0.8) 04/15/23 04:50 Baso # (Auto) 0.1 10^3/uL (0.0-0.1) 04/15/23 04:50 Nucleated RBC % (auto) 0 % 04/15/23 04:50 Nucleated RBCs # 0.0 /100WBC 04/15/23 04:50 PT 24.20 SECONDS (12.1-14.9) H 04/15/23 04:50 INR 2.08 (0.8-1.2) H 04/15/23 04:50 Sodium 138 mmol/L (136-145) 04/15/23 04:50 Potassium 3.6 mmol/L (3.5-5.1) 04/15/23 04:50 Chloride 105 mmol/L (98-107) 04/15/23 04:50 Carbon Dioxide 29 mmol/L (22-29) 04/15/23 04:50 Anion Gap 7.6 (5-19) 04/15/23 04:50 BUN 8 mg/dL (8-23) 04/15/23 04:50 Creatinine 0.5 mg/dL (0.7-1.2) L 04/15/23 04:50 GFR Calculation 164.4 mL/min (90-130) H 04/15/23 04:50 Glucose 110 mg/dL (65-115) 04/15/23 04:50 POC Glucose 106 mg/dL (70-110) 04/13/23 19:38 Calculated Osmolality 285 mOsm/kg (285-295) 04/15/23 04:50 Calcium 7.5 mg/dL (8.5-10.5) L 04/15/23 04:50 Total Bilirubin 3.0 mg/dL (0.15-1.2) H 04/15/23 04:50 Direct Bilirubin 1.30 mg/dL (0.00-0.30) H 04/14/23 04:37 GGT 38 U/L (8-61) 04/14/23 04:37 AST 39 U/L (0-40) 04/15/23 04:50 ALT 21 U/L (0-41) 04/15/23 04:50 Alkaline Phosphatase 147 U/L (40-130) H 04/15/23 04:50 Ammonia 74 umol/L (16-60) H 04/14/23 08:18 Lactate Dehydrogenase 242 U/L (135-225) H 04/14/23 04:37 Total Protein 5.4 g/dL (6.6-8.7) L 04/15/23 04:50 Albumin 2.0 g/dL (3.5-5.2) L 04/15/23 04:50 Globulin 3.4 g/dL (1.3-4.6) 04/15/23 04:50 Vitamin B12 1385 pg/mL (232-1245) H 04/14/23 04:37 Folate 7.7 ng/mL (4.5-32.2) 04/15/23 04:50 TSH 2.78 uIU/mL (0.27-4.20) 04/14/23 04:37 Urine Color Yellow (Yellow) 04/13/23 20:01 Urine Appearance Clear (CLEAR) 04/13/23 20:01 Urine pH 6 (5-7) 04/13/23 20:01 Ur Specific [place] 1.015 (1.005-1.030) 04/13/23 20:01 Urine Protein Neg (Negative) 04/13/23 20:01 Urine Glucose (UA) Norm (Normal) 04/13/23 20:01 Urine Ketones Negative (Negative) 04/13/23 20:01 Urine Blood Neg (Negative) 04/13/23 20:01 Urine Nitrate Negative (Negative) 04/13/23 20:01 Urine Bilirubin 1+ (Negative) H 04/13/23 20:01 Urine Urobilinogen 4+ mg/dL (Negative) H 04/13/23 20:01 Ur Leukocyte Esterase Negative (Negative) 04/13/23 20:01 Hepatitis A IgM Ab Non-reactive (Nonreactive) 04/14/23 04:37 Hep Bs Antigen Non-reactive (Nonreactive) 04/14/23 04:37 Hep Bs Antibody 148.3 (11.5-1000) 04/14/23 04:37 Hep B Core Total Ab Non-reactive (Nonreactive) 04/14/23 04:37 Hepatitis C Antibody Non-reactive (Nonreactive) 04/14/23 04:37 Vitals Last Vital Signs Temp 97.7 F 04/15/23 10:59 Pulse 59 L 04/15/23 10:59 Resp 18 04/15/23 10:59 BP 122/82 04/15/23 10:59 Pulse Ox 99 04/15/23 10:59 O2 Del Method Room Air 04/15/23 10:59 Discharge Plan Discharge Patient Disposition: Home Condition: Stable Prescriptions: New lactulose 20 gram/30 mL Solution 20 g PO Q6H PRN (Reason: Constipation) Qty: 1500 0RF rifaximin 550 mg tablet 550 mg PO BID Qty: 60 0RF Continued flecainide 100 mg tablet 300 mg PO DAILY PRN (Reason: atrial fibrillation) Qty: 90 0RF Rx Instructions: take when in atrial fibrillation as discussed with urban planner; states she has never had to give this dose, yet Topicort 0.25 % Cream 1 applic TOPICAL BID PRN (Reason: unknown) flecainide 100 mg Tablet 100 mg PO Q12H epinephrine 0.3 mg/0.3 mL Syringe 0.3 mg IM Q30M PRN (Reason: Anaphylaxis) Rx Instructions: do not exceed 12 doses per 24 hrs Eliquis 5 mg Tablet 5 mg PO BID pantoprazole [Protonix] 40 mg Tablet,Delayed Release (Dr/Ec) 40 mg PO DAILY cholecalciferol (vitamin D3) [Vitamin D3] 50 mcg (2,000 unit) Tablet 100 mcg PO DAILY Discontinued metoprolol tartrate 25 mg Tablet 25 mg PO BID Rx Instructions: Dr. Manning said only to take if blood pressure >135 systolic due to patient running low blood pressures Discharge Orders: Discharge Order (Routine); Ordered 04/15/23 Ordered By: Otoniel Sykes Referrals: Ramona Cr MD [Primary Care Provider] - 04/30/23 10:30 am Discharge Diet: Regular Discharge Activity: Resume usual activity and Increase activity as tolerated Patient Instructions: Lactulose (By mouth), Rifaximin (By mouth), Encephalopathy (GEN), Opioid Safety Activity Restrictions/Additional Instructions: Continue all your medications as before. Take lactulose 20 mg every 6 hour as needed till you have 2-3 soft bowel movements a day. Rifaximin 550 mg twice daily has been added to your medication list. Please follow-up with your primary care provider on set appointment. Discharge Attestations Time Spent in Discharge Care*: greater than 30 min Specific Discharge Activities: educating patient, educating and/or supporting family/caregiver, discussing with pcp/other providers, discussing with caser in/social workers/dc planners, documenting/other paperwork and evaluating patient/reviewing data Status at Discharge: Cognitive status at discharge: cognitively intact , Behavioral status at discharge: cooperative , Functional status at discharge: independent ambulation , Overall status at discharge: patient is back to baseline Quality Metrics Clinical Quality Measures [ No reported AMI, CVA or VTE this stay] Coding Level of Care Code 58020 Total time (in minutes) for Discharge: 50 Diagnoses Encephalopathy, hepatic K76.82 Cirrhosis K74.60 Hyperbilirubinemia E80.6 Atrial fibrillation I48.91 Hypoglycemia E16.2 Intermittent gross hematuria R31.0 Sleep apnea G47.30
== END 2023-04-15 11:52 | disposition home or self-care (01) ==
LOC: ER 20:04 → MEDSURG 22:02
PROVIDERS: Emergency Medicine; Admitting Provider Internal Medicine; Emergency Provider Emergency Medicine; PCP Family Medicine; Visit Provider Student in an Organized Health Care Education/Training Program
DX: K76.82 Hepatic encephalopathy (principal); E72.20 Disorder of urea cycle metabolism, unspecified; K74.60 Unspecified cirrhosis of liver; E80.6 Other disorders of bilirubin metabolism; E16.2 Hypoglycemia, unspecified; R31.0 Gross hematuria; Z79.01 Long term (current) use of anticoagulants; G47.30 Sleep apnea, unspecified; I48.20 Chronic atrial fibrillation, unspecified; Z95.0 Presence of cardiac pacemaker
CPT/HCPCS: 36415; 36416; 70450; 71045; 74176; 76705; 80053; 81003; 82140; 82248; 82607; 82746; 82962; 82977; 83615; 84443; 85025; 85610; 86705; 86706; 86709; 86803; 87340; 93005; 96372; 97165; 99285; G0378; J1650

== ENCOUNTER 2023-08-19 09:44 | Emergency (ER) | payer OTHER, SELFPAY ==
[2023-08-19 09:50] VITALS: BP 145/88; PULSE 65; TEMP 36.3; O2SAT 97; BMI 27.8
--- NOTE | 2023-08-19 10:27 | CTR_ITS ---
PROCEDURE INFORMATION: Exam: CT Abdomen And Pelvis With Contrast Exam date and time: 08/19/2023 11:35 AM Age: 73 years old Clinical indication: Nausea and vomiting; Abdominal pain; Localized; Lower; Additional info: Abd pain TECHNIQUE: Imaging protocol: Computed tomography of the abdomen and pelvis with contrast. Radiation optimization: All CT scans at this facility use at least one of these dose optimization techniques: automated exposure control; mA and/or kV adjustment per patient size (includes targeted exams where dose is matched to clinical indication); or iterative reconstruction. Contrast material: OMNI 350; Contrast volume: 95 ml; Contrast route: INTRAVENOUS (IV); REPORTING DATA: Count of CT and Cardiac NM exams in prior 12 months: This patient has received 2 known CTs and 0 known cardiac nuclear medicine studies in the 12 months prior to the current study. COMPARISON: 1. CT kidney stone [id number] 04/13/2023 11:15 PM 2. US gall bladder [id number] 04/13/2023 11:41 PM RADIATION DOSE METRICS: Total DLP (mGy-cm): 537.83 FINDINGS: Tubes, catheters and devices: Partially visualized cardiac leads. Pleural spaces: Trace left pleural effusion and mild basilar atelectasis. Right lower lobe calcified granuloma. Coronary arteries: Coronary artery calcification. Diaphragm: Mild asymmetric elevation of the left hemidiaphragm, stable. Liver: Nodular hepatic contour. Couple subcentimeter left hepatic hypodensities too small to characterize are stable. Mild periportal edema. Gallbladder and bile ducts: 5 mm stone at the gallbladder neck. Mild pericholecystic edema. No intrahepatic biliary ductal dilatation. Mildly increased common duct dilatation, measuring up to 1 cm in diameter. Pancreas: Stable 1.8 cm long pancreatic cystic focus at the level of the head/neck, axial image 35 of series 3 and coronal image 20 of series 5. No ductal dilatation. Spleen: Normal. Adrenal glands: Normal. No mass. Kidneys and ureters: Normal. No hydronephrosis. Stomach and bowel: No obstruction. Colonic diverticulosis without findings of diverticulitis. Appendix: No evidence of appendicitis. Intraperitoneal space: Mild perihepatic ascites. Mild free fluid at the lower abdomen/pelvis. No free air or focal well organized fluid collection. Vasculature: Mild systemic atherosclerosis without abdominal aortic aneurysm. Lymph nodes: No enlarged lymph nodes. Calcified right hilar lymph nodes in keeping with sequela of old granulomatous disease. Urinary bladder: Urinary bladder is unremarkable. Reproductive: Unremarkable as visualized. Bones/joints: No acute fracture. Stable Schmorl's node changes at the inferior L2 and superior L4 vertebral bodies. Degenerative changes along the spine. Soft tissues: Unremarkable. CT/CT abdomen pelvis w con* [id number] IMPRESSION: 1. Colonic diverticulosis without findings of diverticulitis. 2. Cirrhotic liver morphology with mild ascites. 3. 5 mm stone in the gallbladder neck. No definite CT findings of cholecystitis. Mild pericholecystic edema may be on the basis of perihepatic ascites. Consider ultrasound as clinically indicated. 4. Mildly increased common duct dilatation measuring up to 1 cm in diameter. 5. Stable 1.8 cm long pancreatic cyst. Reimaging every 6 months for 2 years, then every 1 year for 2 years, then every 2 years for 6 years is recommended. Alternatively, endoscopic ultrasound with fine needle aspiration is recommended. (Reference: She, 2017) 6. Trace left pleural effusion and basilar atelectasis. REFERENCES: She MENDOZA, et al. Management of Incidental Pancreatic Cysts: A White Paper of the ACR Incidental Findings Committee. J Am Julio Radiol. 2017;14(7):911-923.
--- NOTE | 2023-08-19 10:38 | W.ED.ABDPA2 ---
HPI - Abdominal Pain General: Chief Complaint: Abdominal Pain Stated Complaint: abd pain Time Seen by Provider: 08/19/23 10:21 Source: patient Mode of arrival: ambulatory Limitations: no limitations History of Present Illness: 73-year-old male with a history of alpha trypsin 1 its caused him to have liver failure he is got chronic hyperbilirubinemia. 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 He states that over the last 2 days has been having severe abdominal pain it has been cramping in nature. He states he has had some vomiting and diarrhea states pain is currently a 6 out of 10 is diffuse he states it waxes and wanes. Associated Symptoms: Reports diarrhea and nausea; Denies chills, dysuria and fever(s) Review of Systems Const: Denies: fever(s), chills, body aches or change in appetite Eyes: Denies: blurry vision or eye discomfort ENMT: Denies: throat pain or dental pain Card: Denies: chest pain Resp: Denies: dyspnea GI: Reports: abdominal pain, nausea and diarrhea : Denies: dysuria Musc: Denies: neck pain or back pain Skin/Breast: Denies: rash Neuro: Denies: headache(s) PFSH ED PFSH: Medical History Intermittent gross hematuria Pacemaker [id number] deficiency Sleep apnea Atrial fibrillation Surgical History History of tonsillectomy Family History Father Liver disease Social History Smoking and tobacco/nicotine status: never used tobacco/nicotine Alcohol intake: former Substance/Drug Use: never Physical Exam Const: COMMON NORMALS: no acute distress, patient oriented x3 and healthy appearing HENMT: COMMON NORMALS: normocephalic and atraumatic HEAD & SCALP: normocephalic and atraumatic Eye: COMMON NORMALS: Equal, round and reactive pupils present and EOMs intact bilaterally PUPIL: Yes Equal, round and reactive pupils present OTHER: scleral icterus Neck/C-Spine: COMMON NORMALS: full ROM and supple Chest: COMMONS NORMALS: normal inspection of the chest and normal palpation of entire chest wall Resp: COMMON NORMALS: normal respiratory effort, No retractions, No use of accessory muscles and clear to auscultation bilaterally AUSCULTATION: clear to auscultation bilaterally Cardio: COMMON NORMALS: regular rate, regular rhythm and No murmurs present (Cardio) RATE: regular rate RHYTHM: regular rhythm GI: COMMON NORMALS: Normal to inspection, nondistended, normoactive bowel sounds present, Soft to palpation and no masses PALPATION: Yes Soft to palpation OTHER: diffuse tenderness Extremity: COMMON NORMALS: normal to inspection and full ROM Neuro: COMMON NORMALS: patient oriented x3, moves all extremities and no focal motor deficits Psych: COMMON NORMALS: mental status grossly normal, Normal thought process present and cooperative THOUGHT PROCESS: Normal thought process present Skin: COMMON NORMALS: no rashes or lesions noted and no wounds GENERAL SKIN EXAM: no rashes or lesions noted Course Vital Signs: Vital signs: Vital Signs Temperature 97.4 F L 08/19/23 09:50 Pulse Rate 60 08/19/23 12:52 Respiratory Rate 18 08/19/23 12:52 Blood Pressure 138/85 08/19/23 11:00 Pulse Oximetry 94 08/19/23 12:52 Oxygen Delivery Me thod Room Air 08/19/23 09:50 MDM - Abdominal Pain Medical Decision Making Patient presents here with abdominal pain CT showed no acute findings he does have gallstones white count is normal he has a chronically elevated bili Kunal is at his baseline liver enzymes lipase are normal no signs of choledocholithiasis we will place him on pain meds we will get him surgery follow-up he is also to follow-up with the GI specialist in [facility] if worsening he understands agrees to plan. Medical Records I reviewed the patient's medical records. Lab Data I reviewed the patient's lab results. 08/19/23 10:36 08/19/23 10:36 Labs/Radiology: Radiology Impressions Abdomen/Pelvis CT 08/19/23 10:27 IMPRESSION: 1. Colonic diverticulosis without findings of diverticulitis. 2. Cirrhotic liver morphology with mild ascites. 3. 5 mm stone in the gallbladder neck. No definite CT findings of cholecystitis. Mild pericholecystic edema may be on the basis of perihepatic ascites. Consider ultrasound as clinically indicated. 4. Mildly increased common duct dilatation measuring up to 1 cm in diameter. 5. Stable 1.8 cm long pancreatic cyst. Reimaging every 6 months for 2 years, then every 1 year for 2 years, then every 2 years for 6 years is recommended. Alternatively, endoscopic ultrasound with fine needle aspiration is recommended. (Reference: She, 2017) 6. Trace left pleural effusion and basilar atelectasis. REFERENCES: She MENDOZA, et al. Management of Incidental Pancreatic Cysts: A White Paper of the ACR Incidental Findings Committee. J Am Jluio Radiol. 2017;14(7):911-923. Laboratory Results WBC 5.06 10^3/uL (3.29-11.43) 08/19/23 10:36 RBC 3.19 10^6/uL (3.85-5.65) L 08/19/23 10:36 Hgb 12.40 g/dL (11.27-16.99) 08/19/23 10:36 Hct 35.2 % (37-53) L 08/19/23 10:36 MCV 110.3 fl (82-101) H 08/19/23 10:36 MCH 38.9 pg (27-33) H 08/19/23 10:36 MCHC 35.2 g/dL (30-55) 08/19/23 10:36 RDW 13.7 % (12.1-15.1) 08/19/23 10:36 Plt Count 119 10^3/cmm (157-399) L 08/19/23 10:36 MPV 10.4 fL (7.4-10.4) 08/19/23 10:36 Neut % (Auto) 51.3 % 08/19/23 10:36 Lymph % (Auto) 27.5 % 08/19/23 10:36 Bailey % (Auto) 14.2 % 08/19/23 10:36 Eos % (Auto) 3.8 % 08/19/23 10:36 Baso % (Auto) 2.8 % 08/19/23 10:36 Neut # (Auto) 2.60 10^3/uL (1.8-7.7) 08/19/23 10:36 Lymph # (Auto) 1.4 10^3/uL (0.8-4.8) 08/19/23 10:36 Bailey # (Auto) 0.7 10^3/uL (0.2-0.9) 08/19/23 10:36 Eos # (Auto) 0.2 10^3/uL (0.0-0.8) 08/19/23 10:36 Baso # (Auto) 0.1 10^3/uL (0.0-0.1) 08/19/23 10:36 Nucleated RBC % (auto) 0 % 08/19/23 10:36 Nucleated RBCs # 0.0 /100WBC 08/19/23 10:36 PT 24.00 SECONDS (12.1-14.9) H 08/19/23 10:36 INR 2.06 (0.8-1.2) H 08/19/23 10:36 Sodium 138 mmol/L (136-145) 08/19/23 10:36 Potassium 4.0 mmol/L (3.5-5.1) 08/19/23 10:36 Chloride 105 mmol/L (98-107) 08/19/23 10:36 Carbon Dioxide 27 mmol/L (22-29) 08/19/23 10:36 Anion Gap 10.0 (5-19) 08/19/23 10:36 BUN 11 mg/dL (8-23) 08/19/23 10:36 Creatinine 0.7 mg/dL (0.7-1.2) 08/19/23 10:36 GFR Calculation Not Reportable 08/19/23 10:36 Glucose 122 mg/dL (65-115) H 08/19/23 10:36 Calculated Osmolality 287 mOsm/kg (285-295) 08/19/23 10:36 Calcium 8.3 mg/dL (8.5-10.5) L 08/19/23 10:36 Total Bilirubin 4.3 mg/dL (0.15-1.2) H 08/19/23 10:36 AST 61 U/L (0-40) H 08/19/23 10:36 ALT 33 U/L (0-41) 08/19/23 10:36 Alkaline Phosphatase 181 U/L (40-130) H 08/19/23 10:36 Total Protein 6.0 g/dL (6.6-8.7) L 08/19/23 10:36 Albumin 2.3 g/dL (3.5-5.2) L 08/19/23 10:36 Globulin 3.7 g/dL (1.3-4.6) 08/19/23 10:36 Lipase 32 U/L (13-60) 08/19/23 10:36 Urine Color [place]olly (Yellow) 08/19/23 11:13 Urine Appearance Clear (CLEAR) 08/19/23 11:13 Urine pH 6 (5-7) 08/19/23 11:13 Ur Specific [place] 1.030 (1.005-1.030) 08/19/23 11:13 Urine Protein Trace (Negative) 08/19/23 11:13 Urine Glucose (UA) Norm (Normal) 08/19/23 11:13 Urine Ketones Negative (Negative) 08/19/23 11:13 Urine Blood Neg (Negative) 08/19/23 11:13 Urine Nitrate Negative (Negative) 08/19/23 11:13 Urine Bilirubin 1+ (Negative) H 08/19/23 11:13 Urine Urobilinogen 4+ mg/dL (Negative) H 08/19/23 11:13 Ur Leukocyte Esterase Negative (Negative) 08/19/23 11:13 Urine RBC Rare /hpf (0-2) 08/19/23 11:13 Urine WBC 0-4 /hpf (0-5) H 08/19/23 11:13 Ur Squamous Epith Cells 0-4 /hpf (0-5) H 08/19/23 11:13 Ur Transition Epith Cell 0-4 /hpf 08/19/23 11:13 Uric Acid Crystals 0-4 /hpf 08/19/23 11:13 Amorphous Sediment Not Reportable 08/19/23 11:13 Urine Bacteria Trace /hpf (NONE) 08/19/23 11:13 Hyaline Casts 15-25 /lpf H 08/19/23 11:13 Urine Mucus 2+ /hpf 08/19/23 11:13 All radiology interpretation(s) finalized by discharge Discharge Plan Discharge Patient Disposition: Home Clinical Impression: Hyperbilirubinemia, Gallstone Abdominal pain Qualifiers: Abdominal location: generalized Qualified Code(s): R10.84 - Generalized abdominal pain Condition: Stable Prescriptions: New ondansetron 4 mg tablet,disintegrating 4 mg PO Q6H PRN (Reason: nausea and vomiting) Qty: 14 0RF oxycodone 5 mg tablet 5 mg PO Q8H PRN (Reason: pain) Qty: 14 0RF No Action desoximetasone [Topicort] 0.25 % Cream 1 applic TOPICAL BID PRN (Reason: unknown) flecainide 100 mg Tablet 100 mg PO Q12H epinephrine 0.3 mg/0.3 mL Syringe 0.3 mg IM Q30M PRN (Reason: Anaphylaxis) Rx Instructions: do not exceed 12 doses per 24 hrs lactulose 20 gram/30 mL Solution 20 g PO Q6H PRN (Reason: Constipation) Qty: 1500 0RF rifaximin 550 mg tablet 550 mg PO BID Qty: 60 0RF cholecalciferol (vitamin D3) [Vitamin D3] 50 mcg (2,000 unit) Tablet 100 mcg PO DAILY Protonix 20 mg Tablet,Delayed Release (Dr/Ec) 20 mg PO DAILY Discharge Orders: Discharge ED (Routine); Ordered 08/19/23 Ordered By: Reece Soler Referrals: Ramona Cr MD [Primary Care Provider] - Robe Alvarado MD [Physician] - 1-3 days Discharge Diet: Advance as tolerated Discharge Activity: Resume usual activity Patient Instructions: Gallstones (ED), Abdominal Pain (ED), Opioid Safety Coding Level of Care Code ED Hr Associate for Heike Gaytan
[2023-08-19 10:42] LABS: Basophils # 0.1 10^3/uL (0.0-0.1); Basophils % 2.8 %; Eosinophils # 0.2 10^3/uL (0.0-0.8); Eosinophils % 3.8 %; Hematocrit 35.2 % (37-53); Lymphocytes # 1.4 10^3/uL (0.8-4.8); Lymphocytes % 27.5 %; Mean Corpuscular HGB Conc 35.2 g/dL (30-55); Mean Corpuscular Hemoglobin 38.9 pg (27-33); Mean Corpuscular Volume 110.3 fl (82-101); Mean Platelet Volume 10.4 fL (7.4-10.4); Monocytes # 0.7 10^3/uL (0.2-0.9); Monocytes % 14.2 %; Neutrophils % 51.3 %; Nucleated Red Blood Cells % 0 %; Platelet Count 119 10^3/cmm (157-399); Red Blood Count 3.19 10^6/uL (3.85-5.65); Red Cell Distribution Width 13.7 % (12.1-15.1); White Blood Count 5.06 10^3/uL (3.29-11.43)
[2023-08-19] MEDS: sodium chloride 0.9% 1,000 ML 999 ML IV (10:45)
[2023-08-19 10:46] VITALS: RESP 18
[2023-08-19] MEDS: morphine 4 mg/mL SDV 1 mL IVP (10:46)
[2023-08-19] MEDS: ondansetron 2 mg/ML SDV 2 mL 4 MG IVP (10:46)
[2023-08-19 10:57] LABS: INR 2.06 (0.8-1.2)
[2023-08-19 11:00] VITALS: BP 138/85; PULSE 60; RESP 18; O2SAT 93
[2023-08-19 11:00] LABS: Alanine Aminotransferase 33 U/L (0-41); Albumin Level 2.3 g/dL (3.5-5.2); Alkaline Phosphatase 181 U/L (40-130); Aspartate Amino Transferase 61 U/L (0-40); Blood Urea Nitrogen 11 mg/dL (8-23); Calcium 8.3 mg/dL (8.5-10.5); Carbon Dioxide 27 mmol/L (22-29); Chloride 105 mmol/L (98-107); Globulin 3.7 g/dL (1.3-4.6); Glucose 122 mg/dL (65-115); Lipase 32 U/L (13-60); Osmolality Calculated 287 mOsm/kg (285-295); Sodium 138 mmol/L (136-145); Total Bilirubin 4.3 mg/dL (0.15-1.2)
[2023-08-19 11:37] LABS: Add Urine Microscopic? YES; Bilirubin Urine 1+ (Negative); Blood Urine Neg (Negative); Glucose Urine UA Norm (Normal); Ketones Urine Negative (Negative); Leukocyte Esterase Urine Negative (Negative); Nitrate Urine Negative (Negative); Protein Urine Trace (Negative); Urine Appearance Clear (CLEAR); Urine Color Amber (Yellow); Urobilinogen Urine 4+ mg/dL (Negative); pH Urine 6 (5-7)
[2023-08-19] MEDS: iohexol 350 mg/mL 500 mL Btl (per mL) IV (11:38)
[2023-08-19 11:50] LABS: Add Urine Culture? No; Bacteria Urine TRACE /hpf; Hyaline Casts Urine 15-25 /lpf; Mucus Urine 2+ /hpf; RBC Urine RARE /hpf (0-2); Squamous Epithelial Cell Urine 0-4 /hpf (0-5); Transitional Epi Cells Urine 0-4 /hpf; Uric Acid Crystals Urine 0-4 /hpf; WBC Urine 0-4 /hpf (0-5)
[2023-08-19 12:52] VITALS: PULSE 60; RESP 18; O2SAT 94
--- NOTE | 2023-08-19 15:11 | DCPLANNER ---
Message was sent to general surgery on 08/19/23 at 0894. Clinic to contact patient
== END 2023-08-19 12:53 | disposition home or self-care (01) ==
PROVIDERS: Emergency Provider Emergency Medicine; PCP Family Medicine
DX: R10.84 Generalized abdominal pain (principal); K57.30 Diverticulosis of large intestine without perforation or abscess without bleeding; K80.20 Calculus of gallbladder without cholecystitis without obstruction; K86.2 Cyst of pancreas; E80.6 Other disorders of bilirubin metabolism; Z95.0 Presence of cardiac pacemaker
CPT/HCPCS: 36415; 74177; 80053; 81001; 83690; 85025; 85610; 96374; 96375; 99285; J2270; J2405; J7030; Q9967

== ENCOUNTER 2023-09-07 10:25 | Emergency (ER) | payer OTHER, SELFPAY ==
--- NOTE | 2023-09-07 10:27 | ECG_ITS ---
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 Measurements Intervals [place] Rate: 102 P: 0 [place]: 0 QRS: 66 QRSD: 139 T: 15 QT: 408 QTc: 532 Interpretive Statements ATRIAL FIBRILLATION WITH RAPID VENTRICULAR RESPONSE INTRAVENTRICULAR CONDUCTION DELAY [130+ ms QRS DURATION] Compared to ECG 04/13/2023 19:11:13 Atrial-paced complex(es) or rhythm no longer present ST (T wave) deviation no longer present Electronically Signed On 09-07-2023 19:35:39 LAND DEVELOPMENT MANAGER by Jarred Mary M.D. [email or web address] [email or web address] health [email or web address]/store/NU/[id number] f
--- NOTE | 2023-09-07 10:28 | XR_ITS ---
WS: [id number] Exam: XR chest 1V portable [id number] Date/Time of Exam: 09/07/2023 10:30 AM Reason For Exam: dyspnea/cough Comparison 04/13/2023. The lungs are fully expanded and clear. Cardiac enlargement unchanged. Chronic elevation of the LEFT diaphragm. Permanent cardiac pacer seen over the LEFT chest. Bony structures are intact. IMPRESSION: 1. Cardiac enlargement. No change. 2. No acute process identified.
--- NOTE | 2023-09-07 10:28 | ED_ITS ---
HPI - Arrhythmia/Palpitations 2 General: Chief Complaint: Arrhythmia/Palpitations Stated Complaint: Atrial flutter Time Seen by Provider: 09/07/23 10:26 Source: patient Mode of arrival: EMS History of Present Illness: 73-year-old male presents to the emergen cy room with a rapid heart rate. He has a known history of atrial fibrillation usually takes flecainide 100 mg every 12 hours to control his rate. He did not yet take it this morning he went outside to the put wood in his wood furnace and noted a rapid heart rate got diaphoretic and was very short of breath never had any chest pain. EMS was called on their arrival EKG showed A-fib with rapid ventricular response he was given a single dose of IV push amiodarone 150 mg on arrival here his heart rates in the 100s he is feeling much better his symptoms have relieved his blood pressure is stable. He did have a blood pressure of 80 systolic in the field improved as rate improved. MD complaint: rapid heart beat and heart racing Onset (ago): minute(s) Duration: constant Severity: mild Context: occurred during exertion Arrhythmia history: atrial fibrillation Associated symptoms: Deny anxiety, cough, diaphoresis, muscle cramps, nausea, paresthesias, pre-syncope, sense of impending doom, short of breath, syncope or vomiting Treatments prior to arrival: amiodarone Review of Systems 2 Const: Denies: fever(s), chills or diaphoresis Card: Reports: palpitations and irregular heart rhythm; Denies: chest pain, edema, swelling of feet/ankles, syncope or pre-syncope Resp: Denies: dyspnea GI: Denies: abdominal pain, nausea or vomiting : Denies: dysuria, urinary frequency or urinary urgency Musc: Denies: neck pain, back pain or muscle cramps Skin/Breast: Denies: rash Psych: Denies: anxiety PFSH ED 2 PFSH: Medical History Intermittent gross hematuria Pacemaker Drmer-8-qxlxveykzrg deficiency Sleep apnea Atrial fibrillation Surgical History History of tonsillectomy Family History Father Liver disease Social History Smoking and tobacco/nicotine status: never used tobacco/nicotine Alcohol intake: former Substance/Drug Use: never Physical Exam 2 Const: COMMON NORMALS: no acute distress GENERAL APPEARANCE: cooperative and comfortable ORIENTATION/CONSCIOUSNESS: Yes awake, Yes oriented to person, Yes oriented to place and Yes oriented to time HENMT: COMMON NORMALS: normocephalic, atraumatic and hearing grossly normal bilaterally HEAD & SCALP: normocephalic and atraumatic Resp: COMMON NORMALS: normal respiratory effort, No retractions, No use of accessory muscles and clear to auscultation bilaterally AUSCULTATION: clear to auscultation bilaterally Cardio: COMMON NORMALS: No murmurs present (Cardio) RATE: tachycardic R HYTHM: abnormal rhythm GI: COMMON NORMALS: Soft to palpation and No hepatosplenomegaly present A USCULTATION: Yes normoactive bowel sounds PALPATION: Yes Soft to palpation, No Tenderness to palpation present (GI), No Guarding due to palpation present (GI) and Yes No hepatosplenomegaly present Extremity: COMMON NORMALS: normal to inspection, capillary refill normal, no clubbing, cyanosis or edema, no calf tenderness and no pedal edema Neuro: SENSORIUM/ORIENTATION: Yes oriented to person, Yes oriented to place and Yes oriented to time Skin: COMMON NORMALS: no rashes or lesions noted GENERAL SKIN EXAM: no rashes or lesions noted Course 2 Vital Signs: Vital signs: Vital Signs Pulse Rate 101 H 09/07/23 10:33 Respiratory Rate 18 09/07/23 10:33 Blood Pressure 114/87 09/07/23 10:33 Pulse Oximetry 98 09/07/23 10:33 Oxygen Delivery Me thod Room Air 09/07/23 10:33 MDM - Arrhythmia/Palpitations Medical Decision Making Rate controlled after taking his flecainide this evening amiodarone and round. Labs reviewed. relates that in the past they tried him on carvedilol and evidently he got significantly bradycardic and his blood pressure dropped. They are concerned about this recurring. His rate is relatively controlled at this time decided at this time to put him on a 48 hour Holter monitor to evaluate how often he is having breakthrough A-fib before changing medications. Continue to take the flecainide for now follow-up with his traffic law attorney within the next week. Return if he has further problems. Pacemaker interrogation forwarded to cardiology Medical Records I reviewed the patient's medical records. Lab Data I reviewed the patient's lab results. 09/07/23 10:46 09/07/23 10:46 Laboratory Results WBC 5.43 10^3/uL (3.29-11.43) 09/07/23 10:46 RBC 3.47 10^6/uL (3.85-5.65) L 09/07/23 10:46 Hgb 13.40 g/dL (11.27-16.99) 09/07/23 10:46 Hct 39.2 % (37-53) 09/07/23 10:46 MCV 113.0 fl (82-101) H 09/07/23 10:46 MCH 38.6 pg (27-33) H 09/07/23 10:46 MCHC 34.2 g/dL (30-55) 09/07/23 10:46 RDW 13.3 % (12.1-15.1) 09/07/23 10:46 Plt Count 129 10^3/cmm (157-399) L 09/07/23 10:46 MPV 10.1 fL (7.4-10.4) 09/07/23 10:46 Neut % (Auto) 48.5 % 09/07/23 10:46 Lymph % (Auto) 29.5 % 09/07/23 10:46 [place] % (Auto) 15.1 % 09/07/23 10:46 Eos % (Auto) 3.9 % 09/07/23 10:46 Baso % (Auto) 2.8 % 09/07/23 10:46 Neut # (Auto) 2.64 10^3/uL (1.8-7.7) 09/07/23 10:46 Lymph # (Auto) 1.6 10^3/uL (0.8-4.8) 09/07/23 10:46 [place] # (Auto) 0.8 10^3/uL (0.2-0.9) 09/07/23 10:46 Eos # (Auto) 0.2 10^3/uL (0.0-0.8) 09/07/23 10:46 Baso # (Auto) 0.2 10^3/uL (0.0-0.1) H 09/07/23 10:46 Nucleated RBC % (auto) 0 % 09/07/23 10:46 Nucleated RBCs # 0.0 /100WBC 09/07/23 10:46 Sodium 140 mmol/L (136-145) 09/07/23 10:46 Potassium 4.3 mmol/L (3.5-5.1) 09/07/23 10:46 Chloride 108 mmol/L (98-107) H 09/07/23 10:46 Carbon Dioxide 24 mmol/L (22-29) 09/07/23 10:46 Anion Gap 12.3 (5-19) 09/07/23 10:46 BUN 10 mg/dL (8-23) 09/07/23 10:46 Creatinine 0.8 mg/dL (0.7-1.2) 09/07/23 10:46 GFR Calculation Not Reportable 09/07/23 10:46 Glucose 118 mg/dL (65-115) H 09/07/23 10:46 Calculated Osmolality 290 mOsm/kg (285-295) 09/07/23 10:46 Calcium 8.0 mg/dL (8.5-10.5) L 09/07/23 10:46 Total Bilirubin 5.0 mg/dL (0.15-1.2) H 09/07/23 10:46 AST 50 U/L (0-40) H 09/07/23 10:46 ALT 25 U/L (0-41) 09/07/23 10:46 Alkaline Phosphatase 177 U/L (40-130) H 09/07/23 10:46 NT-Pro-B Natriuret Pep 1156 pg/mL (0-125) H 09/07/23 10:46 Total Protein 5.7 g/dL (6.6-8.7) L 09/07/23 10:46 Albumin 2.1 g/dL (3.5-5.2) L 09/07/23 10:46 Globulin 3.6 g/dL (1.3-4.6) 09/07/23 10:46 All radiology interpretation(s) finalized by discharge Discharge Plan Discharge Patient Disposition: Home Clinical Impression: Atrial fibrillation Condition: Stable Prescriptions: No Action desoximetasone [Topicort] 0.25 % Cream 1 applic TOPICAL BID PRN (Reason: Rash) flecainide 100 mg Tablet 100 mg PO Q12H epinephrine 0.3 mg/0.3 mL Syringe 0.3 mg IM Q30M PRN (Reason: Anaphylaxis) Rx Instructions: do not exceed 12 doses per 24 hrs lactulose 20 gram/30 mL Solution 20 g PO Q6H PRN (Reason: Constipation) Qty: 1500 0RF rifaximin 550 mg tablet 550 mg PO BID Qty: 60 0RF cholecalciferol (vitamin D3) [Vitamin D3] 50 mcg (2,000 unit) Tablet 100 mcg PO DAILY pantoprazole [Protonix] 20 mg Tablet,Delayed Release (Dr/Ec) 20 mg PO DAILY ondansetron 4 mg tablet,disintegrating 4 mg PO Q6H PRN (Reason: nausea and vomiting) Qty: 14 0RF Discharge Orders: Discharge ED (Routine); Ordered 09/07/23 Ordered By: Guillaume Lee Referrals: Ramona Cr MD [Primary Care Provider] - Discharge Diet: Usual diet Discharge Activity: Resume usual activity Patient Instructions: Opioid Safety, Pain Management Activity Restrictions/Additional Instructions: Thank you for choosing [facility] for your healthcare needs today. Please realize this is an emergency room and that we are providing you with a medical screening exam and this may not be complete and all inclusive of all the testing and or work up that you may need to determine your ailment or severity of your illness. It is very important that you follow up as instructed or that you return to the Emergency Department should you have concerns or if your condition changes or worsens in any way. Continue current medications follow-up with primary care doctor or your traffic law attorney within the next week. Coding Level of Care Code ED System Planning Engineer for Heike Gaytan
[2023-09-07 10:33] VITALS: BP 114/87; PULSE 101; RESP 18; O2SAT 98; BMI 27.2
[2023-09-07] MEDS: flecainide 100 mg Tablet PO (10:45)
[2023-09-07 10:54] LABS: Basophils # 0.2 10^3/uL (0.0-0.1); Basophils % 2.8 %; Eosinophils # 0.2 10^3/uL (0.0-0.8); Eosinophils % 3.9 %; Hematocrit 39.2 % (37-53); Lymphocytes # 1.6 10^3/uL (0.8-4.8); Lymphocytes % 29.5 %; Mean Corpuscular HGB Conc 34.2 g/dL (30-55); Mean Corpuscular Hemoglobin 38.6 pg (27-33); Mean Platelet Volume 10.1 fL (7.4-10.4); Monocytes # 0.8 10^3/uL (0.2-0.9); Monocytes % 15.1 %; Neutrophils # 2.64 10^3/uL (1.8-7.7); Neutrophils % 48.5 %; Nucleated Red Blood Cells % 0 %; Platelet Count 129 10^3/cmm (157-399); Red Blood Count 3.47 10^6/uL (3.85-5.65); Red Cell Distribution Width 13.3 % (12.1-15.1); White Blood Count 5.43 10^3/uL (3.29-11.43)
[2023-09-07 11:19] LABS: Alanine Aminotransferase 25 U/L (0-41); Albumin Level 2.1 g/dL (3.5-5.2); Alkaline Phosphatase 177 U/L (40-130); Anion Gap 12.3 (5-19); Aspartate Amino Transferase 50 U/L (0-40); Blood Urea Nitrogen 10 mg/dL (8-23); Carbon Dioxide 24 mmol/L (22-29); Chloride 108 mmol/L (98-107); Globulin 3.6 g/dL (1.3-4.6); Glucose 118 mg/dL (65-115); NT Pro B Type Natriuretic Pept 1156 pg/mL (0-125); Osmolality Calculated 290 mOsm/kg (285-295); Potassium 4.3 mmol/L (3.5-5.1); Sodium 140 mmol/L (136-145); Total Protein 5.7 g/dL (6.6-8.7)
--- NOTE | 2023-09-08 08:33 | DCPLANNER ---
Message sent to Cardiology for a follow up/ Holter monitor 48 hrs- Paroxysmal Atrial Fib with A-fib RVR
== END 2023-09-07 13:19 | disposition home or self-care (01) ==
PROVIDERS: Emergency Provider Family Medicine; PCP Family Medicine
DX: I48.91 Unspecified atrial fibrillation (principal); Z95.0 Presence of cardiac pacemaker
CPT/HCPCS: 71045; 80053; 83880; 85025; 93005; 99285

== ENCOUNTER 2023-09-08 09:56 | Inpatient (IN) | payer OTHER, SELFPAY ==
[2023-09-08] VITALS (79 sets, daily range): BP systolic 91–129; BP diastolic 53–83; PULSE 60–114; RESP 15–31; TEMP 36.7–36.8; O2SAT 91–100; BMI 25.8; BMI 26.2
--- NOTE | 2023-09-08 09:58 | ECG_ITS ---
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 Measurements Intervals [place] Rate: 121 P: 0 [place]: 0 QRS: -5 QRSD: 144 T: 24 QT: 378 QTc: 538 Interpretive Statements ATRIAL FIBRILLATION WITH RAPID VENTRICULAR RESPONSE INDETERMINATE AXIS INTRAVENTRICULAR CONDUCTION DELAY [130+ ms QRS DURATION] Compared to ECG 09/07/2023 10:33:30 Indeterminate axis now present Electronically Signed On 09-08-2023 14:20:15 GAMBLING SUPERVISOR by Matt Benitez M.D. [email or web address].[employer]store/NU/[id number] cinthia
--- NOTE | 2023-09-08 10:00 | XR_ITS ---
WS: [id number] Exam: XR chest 1V portable [id number] Date/Time of Exam: 09/08/2023 10:06 AM Reason For Exam: sob Comparison 09/07/2023. The lungs remain clear and fully inflated. Mild cardiac enlargement. Chronic elevation of the LEFT di aphragm. Permanent pacer seen over the LEFT chest. Bony structures are intact. IMPRESSION1. Cardiac enlargement. No acute process.
--- NOTE | 2023-09-08 10:04 | ED_ITS ---
HPI - Arrhythmia/Palpitations 2 General: Chief Complaint: Arrhythmia/Palpitations Stated Complaint: Rapit HR RVR Time Seen by Provider: 09/08/23 09:59 Source: patient and EMS Mode of arrival: EMS Limitations: no limitations History of Present Illness: 73-year-old male has a history of A-fib he had a syncopal event yesterday he states again this morning he felt extremely lightheaded and passed out EMS states they arrived he was hypotensive and tachycardic he denies any chest pain or headache states his symptoms have improved he did get 150 mg amiodarone bolus. He felt diaphoretic and felt nauseous. Associated symptoms: Reports syncope; Deny nausea or vomiting Review of Systems 2 Const: Denies: fever(s), chills, body aches or change in appetite ENMT: Denies: throat pain or dental pain Card: Reports: syncope; Denies: chest pain Resp: Denies: dyspnea GI: Denies: abdominal pain, nausea, vomiting or diarrhea : Denies: dysuria Musc: Denies: neck pain or back pain Skin/Breast: Denies: rash Neuro: Denies: headache(s) PFSH ED 2 PFSH: Medical History Intermittent gross hematuria Pacemaker Jzjjq-7-ylaxivzngpb deficiency Sleep apnea Atrial fibrillation Surgical History History of tonsillectomy Family History Father Liver disease Social History Smoking and tobacco/nicotine status: never used tobacco/nicotine Alcohol intake: former Substance/Drug Use: never Physical Exam 2 Const: COMMON NORMALS: patient oriented x3 HENMT: COMMON NORMALS: normocephalic and atraumatic HEAD & SCALP: n ormocephalic and atraumatic Eye: COMMON NORMALS: Equal, round and reactive pupils present and EOMs intact bilaterally PUPIL: Yes Equal, round and reactive pupils present Neck/C-Spine: COMMON NORMALS: full ROM and supple Chest: COMMONS NORMALS: normal inspection of the chest Resp: COMMON NORMALS: normal respiratory effort, No retractions, No use of accessory muscles and clear to auscultation bilaterally AUSCULTATION: clear to auscultation bilaterally Cardio: RATE: tachycardic RHYTHM: abnormal rhythm irregularly irregular GI: COMMON NORMALS: Normal to inspection, nondistended, normoactive bowel sounds present, Soft to palpation, non-tender and no masses PALPATION: Yes Soft to palpation Extremity: COMMON NORMALS: normal to inspection and full ROM Neuro: COMMON NORMALS: patient oriented x3, moves all extremities and no focal motor deficits Psych: COMMON NORMALS: mental status grossly normal, Normal thought process present and cooperative THOUGHT PROCESS: Normal thought process present Skin: COMMON NORMALS: no rashes or lesions noted and no wounds GENERAL SKIN EXAM: no rashes or lesions noted Course 2 Vital Signs: Vital signs: Vital Signs Temperature 98.2 F 09/08/23 09:59 Pulse Rate 106 H 09/08/23 11:30 Respiratory Rate 18 09/08/23 11:30 Blood Pressure 118/83 09/08/23 11:30 Pulse Oximetry 98 09/08/23 11:30 Oxygen Delivery Me thod Nasal Cannula 09/08/23 09:59 Oxygen Flow Rate 2 09/08/23 09:59 MDM - Arrhythmia/Palpitations Medical Decision Making Patient presents here with A-fib with RVR had a syncopal event the last 2 days heart rate here is improved blood pressure is normal as well spoke to the hospitalist and will admit at this time also consulted cardiology. Medical Records I reviewed the patient's medical records. Lab Data 09/08/23 10:21 09/08/23 10:21 Laboratory Results WBC 5.78 10^3/uL (3.29-11.43) 09/08/23 10:21 RBC 3.65 10^6/uL (3.85-5.65) L 09/08/23 10:21 Hgb 14.00 g/dL (11.27-16.99) 09/08/23 10:21 Hct 40.9 % (37-53) 09/08/23 10:21 MCV 112.1 fl (82-101) H 09/08/23 10:21 MCH 38.4 pg (27-33) H 09/08/23 10:21 MCHC 34.2 g/dL (30-55) 09/08/23 10:21 RDW 13.4 % (12.1-15.1) 09/08/23 10:21 Plt Count 119 10^3/cmm (157-399) L 09/08/23 10:21 MPV 10.3 fL (7.4-10.4) 09/08/23 10:21 Neut % (Auto) 46.7 % 09/08/23 10:21 Lymph % (Auto) 33.9 % 09/08/23 10:21 [place] % (Auto) 12.3 % 09/08/23 10:21 Eos % (Auto) 4.2 % 09/08/23 10:21 Baso % (Auto) 2.6 % 09/08/23 10:21 Neut # (Auto) 2.70 10^3/uL (1.8-7.7) 09/08/23 10:21 Lymph # (Auto) 2.0 10^3/uL (0.8-4.8) 09/08/23 10:21 [place] # (Auto) 0.7 10^3/uL (0.2-0.9) 09/08/23 10:21 Eos # (Auto) 0.2 10^3/uL (0.0-0.8) 09/08/23 10:21 Baso # (Auto) 0.2 10^3/uL (0.0-0.1) H 09/08/23 10:21 Nucleated RBC % (auto) 0 % 09/08/23 10:21 Nucleated RBCs # 0.0 /100WBC 09/08/23 10:21 PT 24.40 SECONDS (12.1-14.9) H 09/08/23 10:21 INR 2.11 (0.8-1.2) H 09/08/23 10:21 Sodium 141 mmol/L (136-145) 09/08/23 10:21 Potassium 4.4 mmol/L (3.5-5.1) 09/08/23 10:21 Chloride 106 mmol/L (98-107) 09/08/23 10:21 Carbon Dioxide 26 mmol/L (22-29) 09/08/23 10:21 Anion Gap 13.4 (5-19) 09/08/23 10:21 BUN 15 mg/dL (8-23) 09/08/23 10:21 Creatinine 0.7 mg/dL (0.7-1.2) 09/08/23 10:21 GFR Calculation Not Reportable 09/08/23 10:21 Glucose 99 mg/dL (65-115) 09/08/23 10:21 Calculated Osmolality 293 mOsm/kg (285-295) 09/08/23 10:21 Calcium 8.6 mg/dL (8.5-10.5) 09/08/23 10:21 Total Bilirubin 4.4 mg/dL (0.15-1.2) H 09/08/23 10:21 AST 50 U/L (0-40) H 09/08/23 10:21 ALT 25 U/L (0-41) 09/08/23 10:21 Alkaline Phosphatase 191 U/L (40-130) H 09/08/23 10:21 Troponin T Baseline 17 ng/L (0-15) H 09/08/23 10:21 Total Protein 5.8 g/dL (6.6-8.7) L 09/08/23 10:21 Albumin 2.3 g/dL (3.5-5.2) L 09/08/23 10:21 Globulin 3.5 g/dL (1.3-4.6) 09/08/23 10:21 No radiology studies performed this visit EKG Data EKG 1: I personally reviewed and interpreted this EKG as follows: EKG interpretation date: 09/08/23 EKG interpretation time: 09:58 Interpretation: afib with rvr hr [address] or t wave abnormalitis qrs 144 qtc 450 Discharge Plan Discharge Patient Disposition: Admitted As Inpatient Admit Provider: Matti Ramos Clinical Impression: Atrial fibrillation, Syncope Condition: Stable Coding Level of Care Code ED Battery Test Engineer for Chg Lucila
[2023-09-08] MEDS: sodium chloride 0.9% 1,000 ML 999 ML IV (10:22)
[2023-09-08 10:31] LABS: Basophils # 0.2 10^3/uL (0.0-0.1); Basophils % 2.6 %; Eosinophils # 0.2 10^3/uL (0.0-0.8); Eosinophils % 4.2 %; Hematocrit 40.9 % (37-53); Lymphocytes % 33.9 %; Mean Corpuscular HGB Conc 34.2 g/dL (30-55); Mean Corpuscular Hemoglobin 38.4 pg (27-33); Mean Corpuscular Volume 112.1 fl (82-101); Mean Platelet Volume 10.3 fL (7.4-10.4); Monocytes # 0.7 10^3/uL (0.2-0.9); Monocytes % 12.3 %; Neutrophils % 46.7 %; Nucleated Red Blood Cells % 0 %; Platelet Count 119 10^3/cmm (157-399); Red Blood Count 3.65 10^6/uL (3.85-5.65); Red Cell Distribution Width 13.4 % (12.1-15.1); White Blood Count 5.78 10^3/uL (3.29-11.43)
[2023-09-08 10:52] LABS: INR 2.11 (0.8-1.2)
--- NOTE | 2023-09-08 10:54 | PC.PHAR ---
Addendum entered by Jennifer Barnes 09/08/23 10:56: SPOUSE STATES PT TAKES VITAMN D3 TABLET 1,000 UNITS AND TAKES 2 TO = 2,000 UNITS Original Note: [facility]. SPOUSE VERIFIED WITH PERSONAL MEDICATION LIST-09/08/23
[2023-09-08 10:59] LABS: Alanine Aminotransferase 25 U/L (0-41); Albumin Level 2.3 g/dL (3.5-5.2); Alkaline Phosphatase 191 U/L (40-130); Anion Gap 13.4 (5-19); Aspartate Amino Transferase 50 U/L (0-40); Blood Urea Nitrogen 15 mg/dL (8-23); Calcium 8.6 mg/dL (8.5-10.5); Carbon Dioxide 26 mmol/L (22-29); Chloride 106 mmol/L (98-107); Creatinine Clr Calc Pharmacy 91.5913; Globulin 3.5 g/dL (1.3-4.6); Glucose 99 mg/dL (65-115); Osmolality Calculated 293 mOsm/kg (285-295); Potassium 4.4 mmol/L (3.5-5.1); Sodium 141 mmol/L (136-145); Total Bilirubin 4.4 mg/dL (0.15-1.2); Total Protein 5.8 g/dL (6.6-8.7)
[2023-09-08 11:01] LABS: Troponin(5th) Baseline 17 ng/L (0-15)
--- NOTE | 2023-09-08 12:00 | ECG_ITS ---
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 Measurements Intervals [place] Rate: 110 P: 0 [place]: 0 QRS: -54 QRSD: 135 T: 1 QT: 410 QTc: 556 Interpretive Statements ATRIAL FIBRILLATION WITH RAPID VENTRICULAR RESPONSE LEFT AXIS DEVIATION [QRS AXIS < -30] INTRAVENTRICULAR CONDUCTION DELAY [130+ ms QRS DURATION] Compared to ECG 09/08/2023 09:58:11 Left-axis deviation now present Indeterminate axis no longer present Electronically Signed On 09-08-2023 14:27:49 CONTROLS DESIGN ENGINEER by Matt Benitez M.D. https://[email or web address].[employer] Interactive Softwarerancho springs medical center.[employer]/store/OM/[id number]
--- NOTE | 2023-09-08 12:20 | P.HP_ITS ---
Providers/Chief Complaint 2 Admitting Physician: Matti Ramos MD Primary Care Provider: Ramona Cr MD Chief Complaint: Rapit HR RVR History of Present Illness Cesario Awan is a 73 year old male with past history of atrial fibrillation and pacemaker placement in March as well as cirrhosis who presented to the emergency department today after having an episode of dizziness at home, and near syncope. He apparently had to sit down to avoid passing out. This resolved in approximately 20 minutes. The day before he arrived in the emergency department for near syncope and shortness of breath and was found by EMS to be in A-fib with rapid ventricular rate. He had received a single dose of amiodarone, and this resolved to a point he was discharged home yesterday. Today his emergency department course was similar. He came in with A-fib with RVR, and was hypotensive. He received an amiodarone bolus and was started on an amiodarone drip with improvement. No chest pain or shortness of breath currently. No history of recent illness. No blood in his stool or black or tarry stools. He was lightheaded when he came to the emergency department but this is since resolved. He has had some swelling, but this has been going on for months. His left upper extremity has been swollen for quite some time, he reports since his pacemaker placement. Review of Systems 2 General: Reports: 10 or more systems reviewed and unremarkable except in HPI and below Card: Denies: chest pain Resp: Denies: dyspnea Medications/Allergies Home Medications Medication Instructions Recorded Confirmed Last Taken Type desoximetasone 0.25 % topical 1 applic topical BID PRN Rash 04/13/23 09/08/23 Unknown History cream (Topicort) epinephrine 0.3 mg/0.3 mL 0.3 mg IM Q30M PRN Anaphylaxis 04/13/23 09/08/23 Unknown History injection syringe flecainide 100 mg tablet 100 mg PO Q12H 04/13/23 09/08/23 09/08/23 History lactulose 20 gram/30 mL oral 20 g (30 mL) PO Q6H PRN 04/15/23 09/08/23 09/07/23 Rx solution Constipation #1,500 mL rifaximin 550 mg tablet 550 mg PO BID #60 tabs 04/15/23 09/08/23 09/08/23 Rx ondansetron 4 mg disintegrating 4 mg PO Q6H PRN nausea and 08/19/23 09/08/23 Unknown Rx tablet vomiting #14 tabs pantoprazole 20 mg tablet,delayed 20 mg PO QAM 08/19/23 09/08/23 09/08/23 History release (Protonix) cholecalciferol (vitamin D3) 25 50 mcg PO DAILY 09/08/23 09/08/23 09/08/23 History mcg (1,000 unit) tablet (Vitamin D3) oxycodone 5 mg tablet 5 mg PO Q8H PRN Pain 09/08/23 09/08/23 Unknown History Allergies Allergy/AdvReac Type Severity Reaction Status Date / Time bee venom protein (honey bee) Allergy Severe ALGY-Anaphy Verified 09/08/23 10:02 laxis PFSH Acute 2 PFSH: Medical History Intermittent gross hematuria Pacemaker Howur-5-fxcekhwiyus deficiency Sleep apnea Atrial fibrillation Surgical History History of tonsillectomy Family History Father Liver disease Social History Smoking and tobacco/nicotine status: never used tobacco/nicotine Alcohol intake: former Substance/Drug Use: never Vitals/I&O/Wt Last Vital Signs Temp 98.2 F 09/08/23 09:59 Pulse 106 H 09/08/23 11:30 Resp 18 09/08/23 11:30 BP 118/83 09/08/23 11:30 Pulse Ox 98 09/08/23 11:30 O2 Del Method Nasal Cannula 09/08/23 09:59 O2 Flow Rate 2 09/08/23 09:59 Weight last 48 hrs Weight 81.647 kg Physical Exam 2 Narrative: General exam is a white male no distress HEENT: Atraumatic normocephalic Oropharynx clear Neck is supple Cardiovascular irregular, irregular with slightly accelerated rate. I do not auscultate a murmur. Lungs clear no wheezing or crackles Abdomen is soft with positive bowel sounds Extremities no cyanosis or clubbing. Trace to 1+ edema with the exception of his left upper extremity which is markedly different than his right with 1+ edema. Skin no rash Neuro no obvious focal deficits was deferred Data 09/08/23 10:21 09/08/23 10:21 Other Labs: EKG currently demonstrates atrial fibrillation, rapid ventricular rate, normal axis, nonspecific ST-T wave changes and slight intraventricular conduction delay with a QRS duration of 144 by my read Chest x-ray by my read demonstrates mild cardiomegaly, possible mild congestion, dual-chamber pacer, elevation of left hemidiaphragm INR 2.11 Total bilirubin is 4.4, AST 50, ALT 25, alk phos 191. These are similar readings to before Troponin 17 Albumin 2.3 A&P Assessment and plan (1) Atrial fibrillation with rapid ventricular response: Patient was placed on amiodarone by the emergency department secondary to his atrial fibrillation with rapid ventricular rate. He was taking flecainide at home and reports he was compliant. From my understanding, he has had some low blood pressures and been taken off carvedilol in the recent past. Cardiology consult regarding arrhythmia This is likely the reason he has had near syncopal episodes Check echocardiogram Check TSH (2) Edema of left upper arm: Patient with edema in his left upper extremity. He reports it has been going on quite a while Ultrasound of left upper extremity (3) Cirrhosis: Patient with history of cirrhosis, elevated INR, and past history of hepatic encephalopathy. Will go ahead and continue his rifaximin Note that his albumin is low likely secondary to his cirrhosis Plan Multiple other medical problems as outlined in his past medical history Attestations 2 Medical Necessity Statement*: Full code currently SCDs for DVT prophylaxis. Hold off on any other anticoagulation currently secondary to elevated INR. Diagnoses Atrial fibrillation with rapid ventricular response I48.91 Edema of left upper arm R60.0 Cirrhosis K74.60 Time Spent (min) 68
--- NOTE | 2023-09-08 12:39 | USCV_ITS ---
Cesario Awan Age: 73 Gender: M : 1950 Exam Date: 09/08/2023 12:52 Ordering Phys: Matti Ramos MD Technologist: [place] [facility] [place]: chest pain BP: 105 / 72 HR: 101 Rhythm: Sinus Technical Quality: Adequate MEASUREMENTS (Male / Female) Normal Values 2D ECHO LV Diastolic Diameter PLAX 4.4 cm 4.2 - 5.9 / 3.9 - 5.3 cm LV Systolic Diameter PLAX 2.9 cm IVS Diastolic Thickness 1.3 cm 0.6 - 1.0 / 0.6 - 0.9 cm IVS Systolic Thickness 1.1 cm LVPW Diastolic Thickness 1.1 cm 0.6 - 1.0 / 0.6 - 0.9 cm LVPW Systolic Thickness 1.5 cm LVOT Diameter 2.0 cm LV Ejection Fraction 2D Teich 62.8 % LV Ejection Fraction MOD 2C 72.3 % LV Ejection Fraction 2C AL 74.1 % LA Diameter 3.5 cm IVC Diameter 2.4 cm M-MODE LV Diastolic Diameter MM 5.5 cm 4.2 - 5.9 / 3.9 - 5.3 cm LV Systolic Diameter MM 4.1 cm LV Ejection Fraction MM Teich 50.3 % IVS Diastolic Thickness MM 1.0 cm 0.6 - 1.0 / 0.6 - 0.9 cm IVS Systolic Thickness MM 1.7 cm LVPW Diastolic Thickness MM 1.2 cm 0.6 - 1.0 / 0.6 - 0.9 cm LVPW Systolic Thickness MM 2.2 cm RV Diastolic Diameter MM 1.6 cm Aortic Annulus Diameter 4.0 cm LA Ao Ratio MM 1.0 MV E Point Septal Separation 1.5 cm DOPPLER AV Peak Velocity 100.0 cm/s LVOT Peak Velocity 88.0 cm/s AV Area Cont Eq vti 2.4 cm squared AV Area Cont Eq pk 2.8 cm squared MV Area PHT 5.0 cm squared Mitral E to A Ratio 1.3 MV E' Velocity 37.0 cm/s Mitral E to MV E' Ratio 1.7 Mitral E to LV E' Lateral Ratio 9.1 Mitral E to LV E' Septal Ratio 0.9 TR Peak Velocity 156.0 cm/s TR Peak Gradient 9.7 mmHg TV Peak E Velocity 109.0 cm/s Right Atrial Pressure 3.0 mmHg Pulmonary Artery Systolic Pressu 12.7 mmHg FINDINGS Left Ventricle Left ventricle is normal. LV systolic function is normal with EF of 50-55%. Mild global hypokinesis. Right Ventricle Normal in size and function Right Atrium Normal in size. Pacemaker wire is seen Left Atrium Normal in size. Mitral Valve Structurally normal mitral valve. Mild mitral regurgitation. Aortic Valve Grossly normal. No significant stenosis or regurgitation. Tricuspid Valve Trace tricuspid regurgitation. Insufficient TR jet to calculate RVSP Pulmonic Valve Not well visualized Pericardium Normal Aorta Normal in size IVC Not well visualized CONCLUSIONS LV systolic fucntion is normal with EF of 50-55% Mild mitral regurgitation Trace tricuspid regurgitation Compared to prior echocardiogram from 2013, no significant changes are seen Jer Joyce MD (Electronically Signed) Final Date: 08 September 2023 18:24 S
--- NOTE | 2023-09-08 12:39 | USCV_ITS ---
Cesario Awan Age: 73 Gender: M : 1950 Exam Date: 09/08/2023 13:08 Ordering Phys: Matti Ramos MD Technologist: [place]am [place] [facility] [place]ication: lt arm swelling PROCEDURES: Venous duplex imaging was performed in only the left upper extremity. The following venous structures were evaluated: internal jugular vein, subclavian vein, axillary vein, and brachial veins. In addition, the basilic vein, cephalic vein, radial vein, and ulnar vein. FINDINGS: No evidence of deep vein thrombosis or superficial thrombophlebitis in the left upper extremity. CONCLUSIONS No left upper extremity DVT. Dr. Dori Akbar DO (Electronically Signed) Final Date: 09 September 2023 07:54 S
[2023-09-08 13:16] LABS: Troponin 5 2HR 15.72 ng/L (0-15)
[2023-09-08 13:23] LABS: Troponin 5 2HR Delta -1.28 ABS# (0-10)
[2023-09-08 13:36] LABS: Magnesium 1.6 mg/dL (1.7-2.3); Thyroid Stimulating Hormone 3.88 uIU/mL (0.27-4.20)
[2023-09-08] MEDS: magnesium sulfate premix 2 GM/50 ML PIGGYBACK IV (14:50)
[2023-09-08] MEDS: digoxin 250 mcg/ml INJ 2 mL 500 MCG IVP (14:50)
--- NOTE | 2023-09-08 14:52 | PM.CONSULT ---
Providers/Reason For Consult Consulting Physician/Specialty*: Jer Joyce MD/ Cardiology Reason for Consult*: Atrial fibrillation with RVR Requesting Physician: Dr Soler Attending Physician: Matti Ramos MD Primary Care Provider: Ramona Cr MD History of Present Illness History of Present Illness Cesario Awan is a 73 year old male with past medical history of atrial fibrillation with pacemaker in place who has presented to hospital with dizziness and presyncope. Patient does not feel significant palpitations. She was found to be in A-fib with RVR. He is currently on flecainide 100 mg twice daily. He was put on amiodarone. Not on anticoagulation. He has cirrhosis and INR is over 2. Review of Systems General: Reports: 10 or more systems reviewed and unremarkable except in HPI and below Narrative: Generalized weakness and fatigue bradycardia Const: Denies: fever(s), chills, fatigue or malaise Eyes: Denies: change in vision or blurry vision Card: Reports: irregular heart rhythm and pre-syncope; Denies: chest pain or palpitations Resp: Denies: dyspnea or productive cough GI: Denies: abdominal pain, nausea or vomiting : Denies: flank pain Musc: Denies: extremity pain or extremity swelling Skin/Breast: Denies: rash or pruritus Neuro: Denies: headache(s) Psych: Denies: anxiety or depression Jame/Lymph: Denies: easy bleeding All/Imm: Denies: urticaria, throat swelling or facial swelling Medications/Allergies Home Medications Medication Instructions Recorded Confirmed Last Taken Type desoximetasone 0.25 % topical 1 applic topical BID PRN Rash 04/13/23 09/08/23 Unknown History cream (Topicort) epinephrine 0.3 mg/0.3 mL 0.3 mg IM Q30M PRN Anaphylaxis 04/13/23 09/08/23 Unknown History injection syringe flecainide 100 mg tablet 100 mg PO Q12H 04/13/23 09/08/23 09/08/23 History lactulose 20 gram/30 mL oral 20 g (30 mL) PO Q6H PRN 04/15/23 09/08/23 09/07/23 Rx solution Constipation #1,500 mL rifaximin 550 mg tablet 550 mg PO BID #60 tabs 04/15/23 09/08/23 09/08/23 Rx ondansetron 4 mg disintegrating 4 mg PO Q6H PRN nausea and 08/19/23 09/08/23 Unknown Rx tablet vomiting #14 tabs pantoprazole 20 mg tablet,delayed 20 mg PO QAM 08/19/23 09/08/23 09/08/23 History release (Protonix) cholecalciferol (vitamin D3) 25 50 mcg PO DAILY 09/08/23 09/08/23 09/08/23 History mcg (1,000 unit) tablet (Vitamin D3) oxycodone 5 mg tablet 5 mg PO Q8H PRN Pain 09/08/23 09/08/23 Unknown History Allergies Allergy/AdvReac Type Severity Reaction Status Date / Time bee venom protein (honey bee) Allergy Severe ALGY-Anaphy Verified 09/08/23 10:02 laxis Current Medications Generic Name Dose Route Start Last Admin Trade Name Freq PRN Reason Stop Dose Admin Amiodarone HCl/Dextrose 360 mg in 200 mls @ 0 mls/hr 09/08/23 10:01 09/08/23 10:56 Nexterone IV 1 mg/min .Q0M JESUS 33.33 mls/hr Administration Protocol Per Protocol PFSH Acute PFSH: Medical History Intermittent gross hematuria Pacemaker Eimqu-7-vyfxhehyicu deficiency Sleep apnea Atrial fibrillation Surgical History History of tonsillectomy Family History Father Liver disease Social History Smoking and tobacco/nicotine status: never used tobacco/nicotine Alcohol intake: former Substance/Drug Use: never Vitals/I&O/Wt Last Vital Signs Temp 98.2 F 09/08/23 09:59 Pulse 106 H 09/08/23 11:30 Resp 18 09/08/23 11:30 BP 118/83 09/08/23 11:30 Pulse Ox 98 09/08/23 11:30 O2 Del Method Nasal Cannula 09/08/23 09:59 O2 Flow Rate 2 09/08/23 09:59 Weight last 48 hrs Weight 180 lb Physical Exam Narrative: GENERAL: Patient is alert, awake and oriented x3. [] NECK: No jugular vein distension. [] HEENT: No cyanosis. No icterus. No pallor. [] HEART: Irregularly irregular, tachycardic. LUNGS: Clear to auscultate bilaterally. [] CENTRAL NERVOUS SYSTEM: Grossly nonfocal. [] EXTREMITIES: Lower extremities with 1+ edema bilaterally. Data 09/09/23 04:01 09/09/23 04:01 A&P Assessment and plan (1) Atrial fibrillation: (2) Sleep apnea: (3) Transient hypotension: Plan Patient presented with A-fib with RVR. He is on flecainide. He has been put on amiodarone. Keep holding flecainide. Continue amio drip for now. We will load with digoxin. His Coreg was held secondary to hypotension. We will keep holding for now. If he converts back to normal sinus rhythm over night, will hold his amiodarone and restart flecainide 24 hours later. 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 Continue digoxin 250 mcg p.o. daily. Thank you for involving us with care of this patient. Patient is stable to be discharged from cardiology standpoint. Please call with questions. Consult Attestations Medical Necessity Statement: Care expected to cross 2 midnights. Coding Level of Care Code Acute Code for [facility] Fwd Diagnoses Atrial fibrillation I48.91 Sleep apnea G47.30 Transient hypotension I95.9
--- NOTE | 2023-09-08 16:22 | ECG_ITS ---
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 [id number]
[2023-09-08 17:50] LABS: Troponin 5 6HR 12.77 ng/L (0-15)
[2023-09-08 17:56] LABS: Troponin 5 6HR Delta -4.23 ng/L (0-12)
--- NOTE | 2023-09-08 20:53 | PC.NURSE ---
Patient's current heart rate is paced at 60bpm. Apical auscultation confirmed. Patient reported heart rate dropping to the 30s this am. Current dose of digoxin not given presently. Informed Dr Rosales.
[2023-09-09] VITALS (13 sets, daily range): BP systolic 95–148; BP diastolic 52–82; PULSE 60–70; RESP 17–24; TEMP 36.6–36.9; O2SAT 92–98
--- NOTE | 2023-09-09 03:53 | PC.NURSE ---
Patient currently has heart rate of [address] Rosales and received instruction to hold 0300 dose of digoxin. Will continue to monitor.
[2023-09-09 04:16] LABS: Basophils # 0.1 10^3/uL (0.0-0.1); Basophils % 1.9 %; Eosinophils # 0.4 10^3/uL (0.0-0.8); Hematocrit 34.5 % (37-53); Lymphocytes # 2.6 10^3/uL (0.8-4.8); Lymphocytes % 34.8 %; Mean Corpuscular HGB Conc 34.2 g/dL (30-55); Mean Corpuscular Hemoglobin 38.9 pg (27-33); Mean Corpuscular Volume 113.9 fl (82-101); Mean Platelet Volume 10.6 fL (7.4-10.4); Monocytes # 0.9 10^3/uL (0.2-0.9); Monocytes % 11.9 %; Neutrophils % 45.1 %; Nucleated Red Blood Cells % 0 %; Platelet Count 117 10^3/cmm (157-399); Red Blood Count 3.03 10^6/uL (3.85-5.65); Red Cell Distribution Width 13.6 % (12.1-15.1); White Blood Count 7.32 10^3/uL (3.29-11.43)
[2023-09-09 04:32] LABS: Alanine Aminotransferase 21 U/L (0-41); Albumin Level 1.9 g/dL (3.5-5.2); Alkaline Phosphatase 166 U/L (40-130); Anion Gap 7.8 (5-19); Aspartate Amino Transferase 42 U/L (0-40); Blood Urea Nitrogen 16 mg/dL (8-23); Calcium 7.8 mg/dL (8.5-10.5); Carbon Dioxide 28 mmol/L (22-29); Chloride 110 mmol/L (98-107); Creatinine Clr Calc Pharmacy 92.1073; Globulin 3.1 g/dL (1.3-4.6); Glucose 115 mg/dL (65-115); Osmolality Calculated 294 mOsm/kg (285-295); Potassium 4.8 mmol/L (3.5-5.1); Sodium 141 mmol/L (136-145)
--- NOTE | 2023-09-09 07:48 | P.PN_ITS ---
Subjective 2 Subjective: Patient is doing well. no chest pain. Has been staying in normal sinus rhythm Vitals/I&O/Wt Last Vital Signs Temp 98.4 F 09/09/23 06:59 Pulse 64 09/09/23 06:59 Resp 18 09/09/23 06:59 BP 102/52 09/09/23 06:59 Pulse Ox 92 09/09/23 06:59 O2 Del Method Room Air 09/09/23 06:59 O2 Flow Rate 2 09/08/23 09:59 09/08/23 09/09/23 09/09/23 22:59 06:59 14:59 Intake Total 1490 / 1490 200 / 1690 Balance 1490 / 1490 200 / 1690 Weight last 48 hrs Weight 182 lb 6 oz Weight 180 lb Physical Exam 2 Narrative: GENERAL: Patient is alert, awake and oriented x3. [] NECK: No jugular vein distension. [] HEENT: No cyanosis. No icterus. No pallor. [] HEART: Irregularly irregular, tachycardic. LUNGS: Clear to auscultate bilaterally. [] CENTRAL NERVOUS SYSTEM: Grossly nonfocal. [] EXTREMITIES: Lower extremities with 1+ edema bilaterally. Data 09/10/23 03:34 09/10/23 03:34 A&P Assessment and plan (1) Atrial fibrillation: (2) Sleep apnea: (3) Transient hypotension: Plan Patient has converted back to normal sinus rhythm. Will stop amiodarone today. Plan for restarting flecainide tomorrow. Continue digoxin 250 mcg daily. ECHO shows normal LV systolic function Thank you for involving us with care of this patient. We will observe patient for today, switch to flecainide tomorrow morning and if rhythm stable, can discharge home in the AM. Please call with questions. Attestations 2 Medical Necessity Statement*: Care expected to cross 2 midnights. Coding Level of Care Code Acute Code for [facility] Diagnoses Atrial fibrillation I48.91 Sleep apnea G47.30 Transient hypotension I95.9
--- NOTE | 2023-09-09 07:49 | P.PN_ITS ---
Documented by User: [email or web address] Jim [email or web address] 09/09/23 08:04 Subjective 2 Subjective: Patient resting in bed on room air. He denies any chest pain, shortness of breath, or dizziness overnight. Mr. Awan plans to sit up in chair today, and possibly walk around. Medications: Reviewed: Yes Vitals/I&O/Wt Last Vital Signs Temp 98.4 F 09/09/23 06:59 Pulse 64 09/09/23 06:59 Resp 18 09/09/23 06:59 BP 102/52 09/09/23 06:59 Pulse Ox 92 09/09/23 06:59 O2 Del Method Room Air 09/09/23 06:59 O2 Flow Rate 2 09/08/23 09:59 09/08/23 09/09/23 09/09/23 22:59 06:59 14:59 Intake Total 1490 / 1490 200 / 1690 Balance 1490 / 1490 200 / 1690 Weight last 48 hrs Weight 182 lb 6 oz Weight 180 lb Physical Exam 2 Narrative: General exam is a white male, no distress. HEENT: Atraumatic normocephalic Oropharynx clear Neck is supple Cardiovascular regular, paced rate. I do not auscultate a murmur. Lungs clear no wheezing or crackles. Abdomen is soft with positive bowel sounds, non-tender. Extremities no cyanosis or clubbing. Trace to 1+ edema to bilateral lower legs, left upper extremity is markedly different than his right with 2+ edema. Skin no rash. Neuro no obvious focal deficits was deferred Data 09/09/23 04:01 09/09/23 04:01 A&P Assessment and plan (1) Atrial fibrillation with rapid ventricular response: Patient was placed on amiodarone by the emergency department secondary to his atrial fibrillation with rapid ventricular rate. He was taking flecainide at home and reports he was compliant. From my understanding, he has had some low blood pressures and been taken off carvedilol in the recent past. Cardiology consult regarding arrhythmia. Patient converted to normal sinus rhythm overnight. Plans to discontinue amiodarone drip and restart home flecainide dose 24 hours after. Patient was started on digoxin as well 09/08/23. Per cardiology. This is likely the reason he has had near syncopal episodes Echocardiogram completed 09/08/23 dictated in EF of 50 to 55%. TSH noted to be WNL at 3.88. (2) Edema of left upper arm: Patient with edema in his left upper extremity. He reports it has been going on quite a while Ultrasound of left upper extremity ordered. (3) Cirrhosis: Patient with history of cirrhosis, elevated INR, and past history of hepatic encephalopathy. Continue rifaximin Note that his albumin is low likely secondary to his cirrhosis Plan Multiple other medical problems as outlined in his past medical history Coding Level of Care Code 63704 Diagnoses Atrial fibrillation with rapid ventricular response I48.91 Edema of left upper arm R60.0 Cirrhosis K74.60 Documented by User: Matti Ramos MD 09/09/23 10:12 Physical Exam 2 Narrative: General exam is a white male, no distress. Telemetry indicates conversion to sinus rhythm HEENT: Atraumatic normocephalic Oropharynx clear Neck is supple Cardiovascular regular, paced rate. I do not auscultate a murmur. Lungs clear no wheezing or crackles. Abdomen is soft with positive bowel sounds, non-tender. Extremities no cyanosis or clubbing. Trace to 1+ edema to bilateral lower legs, left upper extremity is markedly different than his right with 2+ edema. Skin no rash. Neuro no obvious focal deficits was deferred Data 09/09/23 04:01 09/09/23 04:01 A&P Assessment and plan (1) Atrial fibrillation with rapid ventricular response: Patient was placed on amiodarone by the emergency department secondary to his atrial fibrillation with rapid ventricular rate. He was taking flecainide at home and reports he was compliant. From my understanding, he has had some low blood pressures and been taken off carvedilol in the recent past. Cardiology consult regarding arrhythmia. Patient converted to normal sinus rhythm overnight. Plans to discontinue amiodarone drip and restart home flecainide dose 24 hours after. Patient was started on digoxin as well 09/08/23. Per cardiology. He will be taking 250 mcg daily. This is likely the reason he has had near syncopal episodes Echocardiogram completed 09/08/23 dictated in EF of 50 to 55%. TSH noted to be WNL at 3.88. (2) Edema of left upper arm: Patient with edema in his left upper extremity. He reports it has been going on quite a while Ultrasound of left upper extremity negative (3) Cirrhosis: Patient with history of cirrhosis, elevated INR, and past history of hepatic encephalopathy. Continue rifaximin Note that his albumin is low likely secondary to his cirrhosis Lactulose twice daily Attestations 2 Medical Necessity Statement*: Needs continued hospitalization for observation of heart rhythm. Diagnoses Atrial fibrillation with rapid ventricular response I48.91 Edema of left upper arm R60.0 Cirrhosis K74.60
[2023-09-09] MEDS: lactulose oral liq 20 gm/30 mL UDC 30 GM PO ×2 (09:55→17:53)
[2023-09-09] MEDS: digoxin 250 mcg Tablet PO (09:55)
[2023-09-09] MEDS: pantoprazole DR 40 mg Tablet PO (09:55)
--- NOTE | 2023-09-09 17:38 | PC.NURSE ---
Patient's asked nurse if she could pass a message on to Dr. Joyce for him to call the patient's documentation specialist, Dr. Cuevas at [phone]. Dr. Joyce replied that he would call in the morning.
[2023-09-09] MEDS: RIFAXIMIN 550 MG 1 EACH PO (17:53)
--- NOTE | 2023-09-09 18:57 | PC.NURSE ---
Patient's brought in home medication rifaxamin. Nurse went to pharmacy to have it labeled. Nurse asked patient and if they would rather me lock it up in the Pyxis or if they would like to keep it in the room. told nurse it was a $6000 a month medication and they would like to keep it in their possession. Nurse agreed. Currently medication is staying on patient's bedside table.
[2023-09-09] MEDS: ondansetron 2 mg/ML SDV 2 mL 4 MG IVP (20:09)
--- NOTE | 2023-09-09 20:14 | PC.NURSE ---
Patient c/o severe abdominal pain post lactulose administration. Provided education regarding possible side effects. Patient verbalized understanding however still in a lot of pain. Zofran given as ordered and documented. Informed Dr Rosales. Will continue to monitor.
--- NOTE | 2023-09-09 20:28 | CTR_ITS ---
PROCEDURE INFORMATION: Exam: CT Abdomen And Pelvis Without Contrast Exam date and time: 09/09/2023 8:35 PM Age: 73 years old Clinical indication: Abdominal pain; Generalized; Additional info: Abdominal pain, distention TECHNIQUE: Imaging protocol: Computed tomography of the abdomen and pelvis without contrast. Radiation optimization: All CT scans at this facility use at least one of these dose optimization techniques: automated exposure control; mA and/or kV adjustment per patient size (includes targeted exams where dose is matched to clinical indication); or iterative reconstruction. COMPARISON: CT abdomen pelvis w con* [id number] 08/19/2023 11:35 AM RADIATION DOSE METRICS: Total DLP (mGy-cm): 734 FINDINGS: Pleural spaces: Small left-sided pleural effusion. Liver: Normal. No mass. Gallbladder and bile ducts: Normal. No calcified stones. No ductal dilation. Pancreas: Normal. No ductal dilation. Spleen: Normal. No splenomegaly. Adrenal glands: Normal. No mass. Kidneys and ureters: Normal. No hydronephrosis. Stomach and bowel: No bowel obstruction or inflammatory process associated with the bowel. Appendix: The appendix is nonenlarged but there is adjacent fat stranding. Which may represent an early appendicitis. Correlate with right lower quadrant pain and tenderness. Intraperitoneal space: No free air or fluid in the abdomen or pelvis. Vasculature: Unremarkable. No abdominal aortic aneurysm. Lymph nodes: Unremarkable. No enlarged lymph nodes. Urinary bladder: Unremarkable as visualized. Reproductive: Unremarkable as visualized. Bones/joints: Unremarkable. No acute fracture. Soft tissues: Unremarkable. CT/CT abdomen pelvis wo con [id number] IMPRESSION: 1. The appendix is nonenlarged but there is adjacent fat stranding. Which may represent an early appendicitis. Correlate with right lower quadrant pain and tenderness. 2. No bowel obstruction or inflammatory process associated with the bowel. 3. No free air or fluid in the abdomen or pelvis.
[2023-09-09] MEDS: oxyCODONE 5 mg IR Tab/Cap PO (20:46)
[2023-09-09 21:16] LABS: Basophils # 0.1 10^3/uL (0.0-0.1); Basophils % 1.9 %; Eosinophils # 0.4 10^3/uL (0.0-0.8); Eosinophils % 5.5 %; Hematocrit 37.2 % (37-53); Lymphocytes # 2.7 10^3/uL (0.8-4.8); Lymphocytes % 36.3 %; Mean Corpuscular HGB Conc 35.2 g/dL (30-55); Mean Corpuscular Hemoglobin 39.6 pg (27-33); Mean Corpuscular Volume 112.4 fl (82-101); Mean Platelet Volume 10.2 fL (7.4-10.4); Monocytes # 0.8 10^3/uL (0.2-0.9); Monocytes % 10.9 %; Neutrophils % 45.1 %; Nucleated Red Blood Cells % 0 %; Platelet Count 128 10^3/cmm (157-399); Red Blood Count 3.31 10^6/uL (3.85-5.65); Red Cell Distribution Width 13.6 % (12.1-15.1); White Blood Count 7.32 10^3/uL (3.29-11.43)
[2023-09-09 21:27] LABS: INR 2.08 (0.8-1.2)
[2023-09-09 21:36] LABS: Alanine Aminotransferase 28 U/L (0-41); Albumin Level 2.3 g/dL (3.5-5.2); Alkaline Phosphatase 192 U/L (40-130); Anion Gap 11.1 (5-19); Aspartate Amino Transferase 52 U/L (0-40); Blood Urea Nitrogen 14 mg/dL (8-23); C Reactive Protein 4.1 mg/L (0.0-4.9); Calcium 7.8 mg/dL (8.5-10.5); Carbon Dioxide 25 mmol/L (22-29); Chloride 108 mmol/L (98-107); Creatinine Clr Calc Pharmacy 92.1073; Globulin 3.7 g/dL (1.3-4.6); Glucose 123 mg/dL (65-115); Lipase 45 U/L (13-60); Osmolality Calculated 292 mOsm/kg (285-295); Potassium 4.1 mmol/L (3.5-5.1); Sodium 140 mmol/L (136-145); Total Bilirubin 3.7 mg/dL (0.15-1.2)
[2023-09-09 21:42] LABS: Procalcitonin 0.08 ng/mL (0-0.5)
--- NOTE | 2023-09-09 21:56 | P.PNCC_ITS ---
Critical Care Event Note The high probability of a clinically significant, sudden or life threatening deterioration of the patient's [] system(s) required my full and direct attention, intervention and personal management. The critical care time is as shown. This time is in addition to time spent performing any reported procedures but includes the following: [x] Data and vital sign review and interpretation [x] Patient assessment, examination and intervention [x] Documentation [x] Medication orders and management Critical Care Time Code activated: No Critical Care Time (min): 30 Additional information about critical care time: Patient was evaluated, he has been having nausea, vomiting, right lower quadrant pain, since this afternoon, no fevers, no chills on examination, he has right l ower quadrant tenderness to palpation, does have right lower lower quadrant pain when the left lower quadrant is palpated, he did have a bowel movement this morning, repeat CBC does not show leukocytosis, no CRP elevation, no Pro-Jem elevation, CT scan abdomen pelvis CT/CT abdomen pelvis wo con [id number] IMPRESSION: 1. The appendix is nonenlarged but there is adjacent fat stranding. Which may represent an early appendicitis. Correlate with right lower quadrant pain and tenderness. 2. No bowel obstruction or inflammatory process associated with the bowel. 3. No free air or fluid in the abdomen or pelvis. -Spoke to patient about results, for now we will keep him n.p.o., hold off on IV fluids, given concerns for CHF, start Zosyn, serial abdominal exams, Zofran and Reglan for nausea, morphine for pain control, will discuss with general surgery -Spoke with Dr. Vance consult, general surgery, agreed with above plan, could be peyers patch inflammation, agreed with above plan, will see in the morning Coding Level of Care Code Acute Code for [facility] F[facility]
[2023-09-09] MEDS: morphine 4 mg/mL SDV 1 mL 2 MG IVP (22:01)
[2023-09-09] MEDS: piperacillin-tazobactam 3.375 GM in sodium chloride 0.9% (plus) 50 ML IV (22:18)
--- NOTE | 2023-09-10 03:48 | PC.NURSE ---
Patient reports much relief of abdominal pain this morning. Will continue to monitor.
[2023-09-10 04:00] VITALS: BP 125/67; PULSE 64; RESP 18; TEMP 36.7; O2SAT 97
[2023-09-10 04:12] LABS: Basophils # 0.1 10^3/uL (0.0-0.1); Basophils % 1.6 %; Eosinophils # 0.4 10^3/uL (0.0-0.8); Hematocrit 37.2 % (37-53); Lymphocytes # 2.3 10^3/uL (0.8-4.8); Lymphocytes % 30.5 %; Mean Corpuscular HGB Conc 33.6 g/dL (30-55); Mean Corpuscular Hemoglobin 38.2 pg (27-33); Mean Corpuscular Volume 113.8 fl (82-101); Mean Platelet Volume 10.3 fL (7.4-10.4); Monocytes # 1.1 10^3/uL (0.2-0.9); Monocytes % 14.2 %; Neutrophils # 3.61 10^3/uL (1.8-7.7); Neutrophils % 48.3 %; Nucleated Red Blood Cells % 0 %; Platelet Count 117 10^3/cmm (157-399); Red Blood Count 3.27 10^6/uL (3.85-5.65); Red Cell Distribution Width 13.3 % (12.1-15.1); White Blood Count 7.47 10^3/uL (3.29-11.43)
[2023-09-10 04:31] LABS: Alanine Aminotransferase 25 U/L (0-41); Albumin Level 2.2 g/dL (3.5-5.2); Alkaline Phosphatase 177 U/L (40-130); Anion Gap 9.3 (5-19); Aspartate Amino Transferase 49 U/L (0-40); Blood Urea Nitrogen 13 mg/dL (8-23); Carbon Dioxide 28 mmol/L (22-29); Chloride 104 mmol/L (98-107); Creatinine Clr Calc Pharmacy 92.1073; Globulin 3.4 g/dL (1.3-4.6); Glucose 103 mg/dL (65-115); Magnesium 1.6 mg/dL (1.7-2.3); Osmolality Calculated 284 mOsm/kg (285-295); Potassium 4.3 mmol/L (3.5-5.1); Sodium 137 mmol/L (136-145); Total Bilirubin 4.6 mg/dL (0.15-1.2); Total Protein 5.6 g/dL (6.6-8.7)
[2023-09-10] MEDS: piperacillin-tazobactam 3.375 GM in sodium chloride 0.9% (plus) 50 ML IV (05:22)
--- NOTE | 2023-09-10 05:59 | P.PN_ITS ---
Subjective 2 Subjective: Patient is doing well. No chest pain. Heart rate is controlled. Last night had right lower quadrant abdominal pain. Surgery team going to evaluate as imaging has concerns for possible appendicitis. Vitals/I&O/Wt Last Vital Signs Temp 98.1 F 09/10/23 04:00 Pulse 64 09/10/23 04:00 Resp 18 09/10/23 04:00 BP 125/67 09/10/23 04:00 Pulse Ox 97 09/10/23 04:00 O2 Del Method Room Air 09/10/23 04:00 O2 Flow Rate 2 09/08/23 09:59 09/09/23 09/09/23 09/10/23 14:59 22:59 06:59 Intake Total 977.25 / 977.25 1140 / 2117.25 350 / 2467.25 Balance 977.25 / 977.25 1140 / 2117.25 350 / 2467.25 Weight last 48 hrs Weight 212 lb 11.2 oz Weight 182 lb 6 oz Weight 180 lb Physical Exam 2 Narrative: GENERAL: Patient is alert, awake and oriented x3. [] NECK: No jugular vein distension. [] HEENT: No cyanosis. No icterus. No pallor. [] HEART: Irregularly irregular, tachycardic. LUNGS: Clear to auscultate bilaterally. [] CENTRAL NERVOUS SYSTEM: Grossly nonfocal. [] EXTREMITIES: Lower extremities with 1+ edema bilaterally. Data 09/10/23 03:34 09/10/23 03:34 A&P Assessment and plan (1) Atrial fibrillation: (2) Sleep apnea: (3) Transient hypotension: Plan Heart rate is controlled. Continue digoxin and restart flecainide. Amiodarone to be stopped. Thank you for involving us with care of this patient.Patient is stable to be discharged from cardiology standpoint. Please call with questions. Attestations 2 Medical Necessity Statement*: Care expected to cross 2 midnights. Coding Level of Care Code Acute Code for [facility] Diagnoses Atrial fibrillation I48.91 Sleep apnea G47.30 Transient hypotension I95.9
[2023-09-10 06:00] VITALS: PULSE 60
[2023-09-10 08:00] VITALS: BP 121/67; PULSE 72; TEMP 36.6; O2SAT 96
[2023-09-10 08:53] VITALS: PULSE 60
[2023-09-10] MEDS: digoxin 250 mcg Tablet PO (08:53)
[2023-09-10] MEDS: flecainide 100 mg Tablet PO (08:53)
[2023-09-10] MEDS: pantoprazole DR 40 mg Tablet PO (08:53)
[2023-09-10] MEDS: RIFAXIMIN 550 MG 1 EACH PO (08:54)
--- NOTE | 2023-09-10 10:04 | P.CONIM_ITS ---
Providers/Reason For Consult 2 Consulting Physician/Specialty*: General surgery Reason for Consult*: Right lower quadrant pain Attending Physician: Matti Ramos MD Primary Care Provider: Ramona Cr MD History of Present Illness History of Present Illness Cesario Awan is a 73 year old male with history of alpha 1 antitrypsin deficiency, liver disease, gallstone disease and atrial fibrillation who is currently admitted to the hospital for management of A-fib with RVR. During hospital stay patient was noted to have pain in the right lower quadrant and therefore a CT scan of the abdomen pelvis was obtained, CT scan show evidence of mild fat stranding near the terminal ileum and appendix but no evidence of appendiceal dilation or other changes on the bowel. I was consulted for this finding. Of note white count has remained normal. During my evaluation this morning patient states that pain has completely resolved, he is hungry, no active complaints. Review of Systems 2 General: Reports: 10 or more systems reviewed and unremarkable except in HPI and below Medications/Allergies Home Medications Medication Instructions Recorded Confirmed Last Taken Type desoximetasone 0.25 % topical 1 applic topical BID PRN Rash 04/13/23 09/08/23 Unknown History cream (Topicort) epinephrine 0.3 mg/0.3 mL 0.3 mg IM Q30M PRN Anaphylaxis 04/13/23 09/08/23 Unknown History injection syringe flecainide 100 mg tablet 100 mg PO Q12H 04/13/23 09/08/23 09/08/23 History rifaximin 550 mg tablet 550 mg PO BID #60 tabs 04/15/23 09/08/23 09/08/23 Rx ondansetron 4 mg disintegrating 4 mg PO Q6H PRN nausea and 08/19/23 09/08/23 Unknown Rx tablet vomiting #14 tabs pantoprazole 20 mg tablet,delayed 20 mg PO QAM 08/19/23 09/08/23 09/08/23 History release (Protonix) cholecalciferol (vitamin D3) 25 50 mcg PO DAILY 09/08/23 09/08/23 09/08/23 History mcg (1,000 unit) tablet (Vitamin D3) oxycodone 5 mg tablet 5 mg PO Q8H PRN Pain 09/08/23 09/08/23 Unknown History lactulose 20 gram/30 mL oral 30 ml PO BID PRN Constipation 09/09/23 09/09/23 09/07/23 History solution Allergies Allergy/AdvReac Type Severity Reaction Status Date / Time bee venom protein (honey bee) Allergy Severe ALGY-Anaphy Verified 09/08/23 10:02 laxis Current Medications Generic Name Dose Route Start Last Admin Trade Name Freq PRN Reason Stop Dose Admin Digoxin 250 mcg 09/10/23 09:00 09/10/23 08:53 Digoxin 250 Mcg Tablet PO 250 mcg DAILY JESUS Administration Flecainide Acetate 100 mg 09/10/23 08:00 09/10/23 08:53 Flecainide 100 Mg Tablet PO 100 mg Q12H JESUS Administration Piperacillin Sod/Tazobactam 50 mls @ 12.5 mls/hr 09/09/23 22:00 09/10/23 05:22 Sod 3.375 gm/ Sodium Chloride IV 12.5 mls/hr Q8H JESUS Administration Protocol Lactulose 30 gm 09/09/23 09:00 09/09/23 17:53 Lactulose Oral Liq 20 Gm/30 Ml Udc PO 30 gm BID JESUS Administration Morphine Sulfate 2 mg 09/09/23 21:54 09/09/23 22:01 Morphine 4 Mg/Ml Sdv 1 Ml IVP 2 mg Q4H PRN Administration SEVERE PAIN Rifaxamin 550mg 1 each 09/09/23 18:00 09/10/23 08:54 PO 1 each BID JESUS Administration Protocol Ondansetron HCl 4 mg 09/08/23 12:43 09/09/23 20:09 Ondansetron 2 Mg/Ml Sdv 2 Ml IVP 4 mg Q6H PRN Administration vomiting, or N/V if npo Pantoprazole Sodium 40 mg 09/09/23 09:00 09/10/23 08:[address] 40 Mg Tablet PO 40 mg DAILY JESUS Administration PFSH Acute 2 PFSH: Medical History Intermittent gross hematuria Pacemaker [id number] deficiency Sleep apnea Atrial fibrillation Surgical History History of tonsillectomy Family History Father Liver disease Social History Smoking and tobacco/nicotine status: never used tobacco/nicotine Alcohol intake: former Substance/Drug Use: never Vitals/I&O/Wt Last Vital Signs Temp 97.9 F 09/10/23 08:00 Pulse 60 09/10/23 08:53 Resp 18 09/10/23 04:00 BP 121/67 09/10/23 08:00 Pulse Ox 96 09/10/23 08:00 O2 Del Method Room Air 09/10/23 08:00 O2 Flow Rate 2 09/08/23 09:59 09/09/23 09/10/23 09/10/23 22:59 06:59 14:59 Intake Total 1140 / 2117.25 350 / 2467.25 Balance 1140 / 2117.25 350 / 2467.25 Weight last 48 hrs Weight 212 lb 11.2 oz Weight 182 lb 6 oz Physical Exam 2 Narrative: general : Patient is well developed , no acute distress, oriented x3 Head : Normal cephalic, a-traumatic. Nose : Mucous membranes are without erythema. Lungs : Equal chest rise bilaterally, no use of accessory muscles, trachea is midline. CV : Rate and rhythm are normal. Abdomen : Soft, ND, NT, no g/r/m Extremities : No edema. Upper extremities are normal bilaterally. Back : non-tender to palpation, no CVA tenderness. Data 09/10/23 03:34 09/10/23 03:34 A&P Assessment and plan (1) Epiploic appendagitis: Plan After complete history physical examination and review of all available clinical data the following is my assessment. Clinical picture of the patient was most consistent with possible acute appendagitis than acute appendicitis. Symptoms are completely resolved by the time my evaluation, I recommended patient should continue antibiotic course with Augmentin for 5 to 7 days. He can receive meloxicam for pain control if not contraindicated from the medical standpoint. Okay to advance diet as tolerated. Of note patient is currently follow-up with hepatology and had a recent evaluation of his biliary tree at . At the time he was recommended to be referred to hepatobiliary surgeon at [place] for possible evaluation for cholecystectomy. I agree that if the patient requires cholecystectomy this needs to be done at tertiary center where hepatobiliary is available due to significant liver disease. No intervention is planned from the general surgery standpoint. All other management per primary team. ? P.o. antibiotics for 5 days Augmentin ? Meloxicam for pain if not contraindicated from the medical standpoint ? Continue follow-up with hepatobiliary and hepatology at [place] Coding Level of Care Code 61971 Diagnoses Epiploic appendagitis K63.89
[2023-09-10 11:11] LABS: Digoxin 0.6 ng/mL (0.6-1.2)
--- NOTE | 2023-09-10 11:20 | PM.DCS ---
Discharge Providers Date of Admission: 09/08/23 11:24 Date of Discharge: September 10, 2023 Attending Provider at Admission: Matti Ramos MD Attending Provider at Discharge: Matti Ramos MD Primary Care Provider: Ramona Sarmiento MD Diagnoses at Discharge Discharge Diagnosis (1) Epiploic appendagitis: Status: Acute Reason for Visit Reason for Visit: Rapit HR RVR Hospital Course Hospital Course Cesario is a 73-year-old white male who presented to the hospital on September 08 with A-fib with RVR. He had a recent ER visit for the same the day prior. He has a history of atrial fibrillation, alpha-1 antitrypsin deficiency, cirrhosis. He was given amiodarone in the emergency department. He converted to sinus rhythm. Secondary to some swelling in his left upper extremity venous duplex was done which was negative for DVT. Echocardiogram was performed showing an EF of 50 to 55%. Cardiology consultation occurred, and digoxin was added to his regimen with plans to resume his flecainide which be had been on from his supervisor composing room at the [facility]. He did have an episode of right-sided abdominal pain, right lower quadrant, that was short-of September 09 the evening following the lactulose dose. A CT scan was done which demonstrated a little bit of fat stranding around his appendix but no evidence of appendicitis. Shortly after the discomfort went away and was not present for any surgical evaluation. Inflammatory markers were not hide white count was not high. Surgery recommended a short course of oral antibiotics. At time of discharge she had remained in sinus rhythm. I visited briefly with his supervisor composing room at the [facility] regarding the digoxin he was started on. He would prefer that the levels are monitored and that the level stays less than or equal to 1.1. A level was done prior to discharge and should be repeated on his follow-up with Dr. Sarmiento in 3 to 5 days. We discussed the CT scan result not showing any stones in his gallbladder ducts. He should however still keep follow-up with [facility] regarding this. His , and the patient were given opportunity ask questions and agreed with the plan. Physical Exam Narrative: General exam no distress Neck is supple Cardiovascular regular rate and rhythm Lungs clear Abdomen is soft Extremities trace edema bilaterally Discharge Data Studies Completed and Pending Completed Studies During Hospitalization Category Date Time Status CT abdomen pelvis wo con [id number] Routine Cat Scan 09/09/23 20:28 Completed XR chest 1V portable [id number] Stat Exams 09/08/23 10:00 [place] [id number] Routine Ultrasound 09/08/23 12:39 Completed CV. echo complete* [id number] Routine Ultrasound 09/08/23 12:39 Completed Radiology Impressions Abdomen/Pelvis CT 09/09/23 20:28 IMPRESSION: 1. The appendix is nonenlarged but there is adjacent fat stranding. Which may represent an early appendicitis. Correlate with right lower quadrant pain and tenderness. 2. No bowel obstruction or inflammatory process associated with the bowel. 3. No free air or fluid in the abdomen or pelvis. Laboratory Results WBC 7.47 10^3/uL (3.29-11.43) 09/10/23 03:34 RBC 3.27 10^6/uL (3.85-5.65) L 09/10/23 03:34 Hgb 12.50 g/dL (11.27-16.99) 09/10/23 03:34 Hct 37.2 % (37-53) 09/10/23 03:34 MCV 113.8 fl (82-101) H 09/10/23 03:34 MCH 38.2 pg (27-33) H 09/10/23 03:34 MCHC 33.6 g/dL (30-55) 09/10/23 03:34 RDW 13.3 % (12.1-15.1) 09/10/23 03:34 Plt Count 117 10^3/cmm (157-399) L 09/10/23 03:34 MPV 10.3 fL (7.4-10.4) 09/10/23 03:34 Neut % (Auto) 48.3 % 09/10/23 03:34 Lymph % (Auto) 30.5 % 09/10/23 03:34 Tyler % (Auto) 14.2 % 09/10/23 03:34 Eos % (Auto) 5.0 % 09/10/23 03:34 Baso % (Auto) 1.6 % 09/10/23 03:34 Neut # (Auto) 3.61 10^3/uL (1.8-7.7) 09/10/23 03:34 Lymph # (Auto) 2.3 10^3/uL (0.8-4.8) 09/10/23 03:34 Tyler # (Auto) 1.1 10^3/uL (0.2-0.9) H 09/10/23 03:34 Eos # (Auto) 0.4 10^3/uL (0.0-0.8) 09/10/23 03:34 Baso # (Auto) 0.1 10^3/uL (0.0-0.1) 09/10/23 03:34 Nucleated RBC % (auto) 0 % 09/10/23 03:34 Nucleated RBCs # 0.0 /100WBC 09/10/23 03:34 PT 24.20 SECONDS (12.1-14.9) H 09/09/23 20:51 INR 2.08 (0.8-1.2) H 09/09/23 20:51 Sodium 137 mmol/L (136-145) 09/10/23 03:34 Potassium 4.3 mmol/L (3.5-5.1) 09/10/23 03:34 Chloride 104 mmol/L (98-107) 09/10/23 03:34 Carbon Dioxide 28 mmol/L (22-29) 09/10/23 03:34 Anion Gap 9.3 (5-19) 09/10/23 03:34 BUN 13 mg/dL (8-23) 09/10/23 03:34 Creatinine 0.6 mg/dL (0.7-1.2) L 09/10/23 03:34 GFR Calculation Not Reportable 09/10/23 03:34 Glucose 103 mg/dL (65-115) 09/10/23 03:34 Calculated Osmolality 284 mOsm/kg (285-295) L 09/10/23 03:34 Calcium 8.0 mg/dL (8.5-10.5) L 09/10/23 03:34 Magnesium 1.6 mg/dL (1.7-2.3) L 09/10/23 03:34 Total Bilirubin 4.6 mg/dL (0.15-1.2) H 09/10/23 03:34 AST 49 U/L (0-40) H 09/10/23 03:34 ALT 25 U/L (0-41) 09/10/23 03:34 Alkaline Phosphatase 177 U/L (40-130) H 09/10/23 03:34 Troponin T Baseline 17 ng/L (0-15) H 09/08/23 10:21 Troponin T 120 Minute 15.72 ng/L (0-15) H 09/08/23 12:21 Delta Troponin T -1.28 ABS# (0-10) L 09/08/23 12:21 Troponin T Hi Sens 6Hr 12.77 ng/L (0-15) 09/08/23 16:33 Troponin T Hi Sens 6Hr Delta -4.23 ng/L (0-12) L 09/08/23 16:33 C-Reactive Protein 4.1 mg/L (0.0-4.9) 09/09/23 20:51 Total Protein 5.6 g/dL (6.6-8.7) L 09/10/23 03:34 Albumin 2.2 g/dL (3.5-5.2) L 09/10/23 03:34 Globulin 3.4 g/dL (1.3-4.6) 09/10/23 03:34 Lipase 45 U/L (13-60) 09/09/23 20:51 Procalcitonin 0.08 ng/mL (0-0.5) 09/09/23 20:51 TSH 3.88 uIU/mL (0.27-4.20) 09/08/23 10:21 Digoxin 0.6 ng/mL (0.6-1.2) 09/10/23 03:34 Vitals Last Vital Signs Temp 97.9 F 09/10/23 08:00 Pulse 60 09/10/23 08:53 Resp 18 09/10/23 04:00 BP 121/67 09/10/23 08:00 Pulse Ox 96 09/10/23 08:00 O2 Del Method Room Air 09/10/23 08:00 O2 Flow Rate 2 09/08/23 09:59 Discharge Plan Discharge Patient Disposition: Home Condition: Stable Prescriptions: New digoxin 250 mcg (0.25 mg) Tablet 250 mcg PO DAILY Qty: 30 0RF amoxicillin-pot clavulanate 875-125 mg tablet 1 tab PO BID Qty: 14 0RF Continued desoximetasone [Topicort] 0.25 % Cream 1 applic TOPICAL BID PRN (Reason: Rash) flecainide 100 mg Tablet 100 mg PO Q12H epinephrine 0.3 mg/0.3 mL Syringe 0.3 mg IM Q30M PRN (Reason: Anaphylaxis) Rx Instructions: do not exceed 12 doses per 24 hrs rifaximin 550 mg tablet 550 mg PO BID Qty: 60 0RF pantoprazole [Protonix] 20 mg Tablet,Delayed Release (Dr/Ec) 20 mg PO QAM ondansetron 4 mg tablet,disintegrating 4 mg PO Q6H PRN (Reason: nausea and vomiting) Qty: 14 0RF Vitamin D3 25 mcg (1,000 unit) Tablet 50 mcg PO DAILY oxycodone 5 mg tablet 5 mg PO Q8H PRN (Reason: Pain) Changed lactulose 20 gram/30 mL solution 15 ml PO QID Qty: 180 0RF Discharge Orders: Discharge Order (Routine); Ordered 09/10/23 Ordered By: Matti Ramos Referrals: Ramona Sarmiento MD [Primary Care Provider] - 4-7 days (Digoxin level on follow-up, faxed to document processor at [facility] 09/14/23 at 11:00 ) Discharge Diet: Cardiac Discharge Activity: Increase activity as tolerated Patient Instructions: Digoxin (By mouth) (Digitek, Digox, Lanoxicaps, Lanoxin), Amoxicillin/Clavulanate Potassium (By mouth), A-fib (Atrial Fibrillation) (DC), Syncope (DC), Opioid Safety Activity Restrictions/Additional Instructions: Keep regular follow-ups at [facility] as well as [facility] for any concerns Medication changes as noted Discharge Attestations Time Spent in Discharge Care*: greater than 30 min Status at Discharge: Cognitive status at discharge: cognitively intact, Behavioral status at discharge: cooperative, Quality Metrics Clinical Quality Measures [ No reported AMI, CVA or VTE this stay] Coding Level of Care Code 64451 Total time (in minutes) for Discharge: 36 Diagnoses Epiploic appendagitis K63.89
[2023-09-10 11:40] VITALS: BP 111/62; PULSE 60; RESP 21; TEMP 36.6; O2SAT 96
[2023-09-10 12:21] VITALS: BP 111/62; PULSE 60; RESP 21; TEMP 36.6; O2SAT 96
--- NOTE | 2023-09-10 13:18 | PC.NURSE ---
discharge instructions given and explained.pt and spouse verb understanding.discharged via w/c to exit at this time.spouse to drive pt home
--- NOTE | 2023-09-10 13:19 | PC.NURSE ---
digoxin level faxed to dr montero's office as requested by
== END 2023-09-10 13:19 | disposition home or self-care (01) | DRG 310 ==
LOC: ER 10:26 → CSU 11:25
PROVIDERS: Family Medicine; Admitting Provider Internal Medicine; Emergency Provider Emergency Medicine; PCP Family Medicine; Visit Provider Internal Medicine
DX: I48.20 Chronic atrial fibrillation, unspecified (principal); Z95.0 Presence of cardiac pacemaker; E88.01 Alpha-1-antitrypsin deficiency; G47.30 Sleep apnea, unspecified; K74.60 Unspecified cirrhosis of liver; R60.0 Localized edema; I95.89 Other hypotension; K63.89 Other specified diseases of intestine
CPT/HCPCS: 36415; 71045; 74176; 80053; 80162; 83690; 83735; 84145; 84443; 84484; 85025; 85610; 86140; 93005; 93306; 93971; 96365; 96366; 99285; A4222; J0283; J1160; J2270; J2405; J2543; J3475; J7030

== ENCOUNTER → 2023-10-19 14:22 | Outpatient (BNVA) | payer OTHER, SELFPAY | PROVIDERS: PCP Family Medicine; Referring Provider Family Medicine; Visit Provider Internal Medicine Pulmonary Disease | DX: G47.30 Sleep apnea, unspecified (principal); R06.02 Shortness of breath; E88.01 Alpha-1-antitrypsin deficiency; I27.20 Pulmonary hypertension, unspecified | CPT/HCPCS: 36415; 82103; 99204 ==

== ENCOUNTER 2023-11-10 19:17 | Emergency (ER) | payer OTHER, SELFPAY ==
[2023-11-10] VITALS (7 sets, daily range): BP systolic 115–173; BP diastolic 63–99; PULSE 69–78; RESP 16–18; TEMP 36.4; O2SAT 93–96
--- NOTE | 2023-11-10 19:34 | USR_ITS ---
PROCEDURE INFORMATION: Exam: US Abdomen, Limited; Right Upper Quadrant Exam date and time: 11/10/2023 8:32 PM Age: 73 years old Clinical indication: Other: Had CT 2 days ago at [facility] = concern for dbd stone, recommending mrcp. ; Additional info: Ruq pain TECHNIQUE: Imaging protocol: Real time ultrasound of the abdomen with image documentation. Limited exam focused on the right upper quadrant. COMPARISON: US gall bladder [id number] 04/13/2023 11:41 PM FINDINGS: Liver: Cirrhotic liver. Left hepatic lobe 1 cm cyst. Gallbladder: Biliary sludge with prominence of the gallbladder wall at 3 mm likely related to underlying liver disease, if concern for cholecystitis exists consider further evaluation with a nuclear medicine HIDA scan. Biliary ducts: Normal. No stones. No dilation. Pancreas: Visualized pancreas is unremarkable. Right kidney: Normal. No mass. No hydronephrosis. Intraperitoneal space: Moderate ascites in the abdomen and pelvis. US/US gall bladder [id number] IMPRESSION: 1. Biliary sludge with prominence of the gallbladder wall at 3 mm likely related to underlying liver disease, if concern for cholecystitis exists consider further evaluation with a nuclear medicine HIDA scan. 2. Cirrhotic liver. 3. Moderate ascites in the abdomen and pelvis. 4. Left hepatic lobe 1 cm cyst.
--- NOTE | 2023-11-10 19:36 | ED_ITS ---
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 He states been having right upper quadrant pain over the last 2 days. He states he had a CT scan done at [place] 2 days ago that showed concerns for common bile duct stone and recommended MRCP. He denies any fevers he states the pains typically in the evenings denies any worsening proving factors Associated Symptoms: Denies chills, diarrhea, dysuria, fever(s), nausea and vomiting Review of Systems 2 Const: Denies: fever(s), chills, body aches or change in appetite Eyes: Denies: blurry vision or eye discomfort ENMT: Denies: throat pain or dental pain Card: Denies: chest pain Resp: Denies: dyspnea GI: Reports: abdominal pain; Denies: nausea, vomiting or diarrhea : Denies: dysuria Musc: Denies: neck pain or back pain Skin/Breast: Denies: rash Neuro: Denies: headache(s) PFSH ED 2 PFSH: Medical History Intermittent gross hematuria Pacemaker Oumgl-6-cobwskvdwrj deficiency Sleep apnea Atrial fibrillation Surgical History History of tonsillectomy Family History Father Liver disease Social History Smoking and tobacco/nicotine status: never used tobacco/nicotine Alcohol intake: former Substance/Drug Use: never Physical Exam 2 Const: COMMON NORMALS: no acute distress, patient oriented x3 and healthy appearing HENMT: COMMON NORMALS: normocephalic and atraumatic HEAD & SCALP: n ormocephalic and atraumatic Eye: COMMON NORMALS: Equal, round and reactive pupils present and EOMs intact bilaterally PUPIL: Yes Equal, round and reactive pupils present Neck/C-Spine: COMMON NORMALS: full ROM and supple Chest: COMMONS NORMALS: normal inspection of the chest Resp: COMMON NORMALS: normal respiratory effort, No retractions, No use of accessory muscles and clear to auscultation bilaterally AUSCULTATION: clear to auscultation bilaterally Cardio: COMMON NORMALS: regular rate, regular rhythm and No murmurs present (Cardio) RATE: regular rate RHYTHM: regular rhythm GI: COMMON NORMALS: Normal to inspection, nondistended, normoactive bowel sounds present, Soft to palpation and no masses PALPATION: Yes Soft to palpation and Yes Tenderness to palpation present (GI) Details: RUQ Extremity: COMMON NORMALS: normal to inspection and full ROM Neuro: COMMON NORMALS: patient oriented x3, moves all extremities and no focal motor deficits Psych: COMMON NORMALS: mental status grossly normal, Normal thought process present and cooperative THOUGHT PROCESS: Normal thought process present Skin: COMMON NORMALS: no rashes or lesions noted and no wounds GENERAL SKIN EXAM: no rashes or lesions noted Course 2 Vital Signs: Vital signs: Vital Signs Temperature 97.6 F 11/11/23 10:17 Pulse Rate 70 11/11/23 10:17 Respiratory Rate 16 11/11/23 10:17 Blood Pressure 107/62 11/11/23 10:17 Pulse Oximetry 94 11/11/23 10:17 Oxygen Delivery Me thod Room Air 11/11/23 08:34 MDM - Abdominal Pain Lab Data 11/10/23 19:44 11/10/23 19:44 Labs/Radiology: Radiology Impressions Gallbladder Ultrasound 11/10/23 19:34 IMPRESSION: 1. Biliary sludge with prominence of the gallbladder wall at 3 mm likely related to underlying liver disease, if concern for cholecystitis exists consider further evaluation with a nuclear medicine HIDA scan. 2. Cirrhotic liver. 3. Moderate ascites in the abdomen and pelvis. 4. Left hepatic lobe 1 cm cyst. Laboratory Results WBC 6.53 10^3/uL (3.29-11.43) 11/10/23 19:44 RBC 3.19 10^6/uL (3.85-5.65) L 11/10/23 19:44 Hgb 12.40 g/dL (11.27-16.99) 11/10/23 19:44 Hct 36.1 % (37-53) L 11/10/23 19:44 MCV 113.2 fl (82-101) H 11/10/23 19:44 MCH 38.9 pg (27-33) H 11/10/23 19:44 MCHC 34.3 g/dL (30-55) 11/10/23 19:44 RDW 14.4 % (12.1-15.1) 11/10/23 19:44 Plt Count 118 10^3/cmm (157-399) L 11/10/23 19:44 MPV 10.9 fL (7.4-10.4) H 11/10/23 19:44 Neut % (Auto) 58.7 % 11/10/23 19:44 Lymph % (Auto) 23.1 % 11/10/23 19:44 [place] % (Auto) 13.9 % 11/10/23 19:44 Eos % (Auto) 2.1 % 11/10/23 19:44 Baso % (Auto) 1.7 % 11/10/23 19:44 Neut # (Auto) 3.83 10^3/uL (1.8-7.7) 11/10/23 19:44 Lymph # (Auto) 1.5 10^3/uL (0.8-4.8) 11/10/23 19:44 [place] # (Auto) 0.9 10^3/uL (0.2-0.9) 11/10/23 19:44 Eos # (Auto) 0.1 10^3/uL (0.0-0.8) 11/10/23 19:44 Baso # (Auto) 0.1 10^3/uL (0.0-0.1) 11/10/23 19:44 Nucleated RBC % (auto) 0 % 11/10/23 19:44 Nucleated RBCs # 0.0 /100WBC 11/10/23 19:44 Sodium 140 mmol/L (136-145) 11/10/23 19:44 Potassium 4.3 mmol/L (3.5-5.1) 11/10/23 19:44 Chloride 104 mmol/L (98-107) 11/10/23 19:44 Carbon Dioxide 28 mmol/L (22-29) 11/10/23 19:44 Anion Gap 12.3 (5-19) 11/10/23 19:44 BUN 11 mg/dL (8-23) 11/10/23 19:44 Creatinine 0.6 mg/dL (0.7-1.2) L 11/10/23 19:44 GFR Calculation Not Reportable 11/10/23 19:44 Glucose 141 mg/dL (65-115) H 11/10/23 19:44 POC Glucose 118 mg/dL (70-110) H 11/11/23 01:16 Calculated Osmolality 292 mOsm/kg (285-295) 11/10/23 19:44 Calcium 8.1 mg/dL (8.5-10.5) L 11/10/23 19:44 Total Bilirubin 6.0 mg/dL (0.15-1.2) H 11/10/23 19:44 AST 46 U/L (0-40) H 11/10/23 19:44 ALT 28 U/L (0-41) 11/10/23 19:44 Alkaline Phosphatase 170 U/L (40-130) H 11/10/23 19:44 Total Protein 6.2 g/dL (6.6-8.7) L 11/10/23 19:44 Albumin 2.5 g/dL (3.5-5.2) L 11/10/23 19:44 Globulin 3.7 g/dL (1.3-4.6) 11/10/23 19:44 Lipase 37 U/L (13-60) 11/10/23 19:44 Discharge Plan Discharge Patient Disposition: Xfer Short-Term Hosp Clinical Impression: Choledocholithiasis Condition: Stable Referrals: Ramona Cr MD [Primary Care Provider] - Coding Level of Care Code ED Furnace Filler for Chg Fwd Documented by User: Eren Kwan MD 11/14/23 13:41 HPI - Abdominal Pain 2 General: Chief Complaint: Abdominal Pain Stated Complaint: abdomen pain Time Seen by Provider: 11/10/23 19:26 [facility] ED 2 PFS: Medical History Intermittent gross hematuria Pacemaker Xsozx-1-qhipaggxurf deficiency Sleep apnea Atrial fibrillation Surgical History History of tonsillectomy Family History Father Liver disease Social History Smoking and tobacco/nicotine status: never used tobacco/nicotine Alcohol intake: former Substance/Drug Use: never Course 2 Vital Signs: Vital signs: Vital Signs Temperature 97.6 F 11/11/23 10:17 Pulse Rate 70 11/11/23 10:17 Respiratory Rate 16 11/11/23 10:17 Blood Pressure 107/62 11/11/23 10:17 Pulse Oximetry 94 11/11/23 10:17 Oxygen Delivery Me thod Room Air 11/11/23 08:34 MDM - Abdominal Pain Medical Decision Making I have discussed the patient's case with the off going physician <Dr. Soler> and I have assumed care of the patient. We have discussed the current lab/radiographic results that have been resulted and the pending tests. We are currently awaiting acceptance for transfer. Medical Records I reviewed the patient's medical records. Lab Data 11/10/23 19:44 11/10/23 19:44 Labs/Radiology: Radiology Impressions Gallbladder Ultrasound 11/10/23 19:34 IMPRESSION: 1. Biliary sludge with prominence of the gallbladder wall at 3 mm likely related to underlying liver disease, if concern for cholecystitis exists consider further evaluation with a nuclear medicine HIDA scan. 2. Cirrhotic liver. 3. Moderate ascites in the abdomen and pelvis. 4. Left hepatic lobe 1 cm cyst. Laboratory Results WBC 6.53 10^3/uL (3.29-11.43) 11/10/23 19:44 RBC 3.19 10^6/uL (3.85-5.65) L 11/10/23 19:44 Hgb 12.40 g/dL (11.27-16.99) 11/10/23 19:44 Hct 36.1 % (37-53) L 11/10/23 19:44 MCV 113.2 fl (82-101) H 11/10/23 19:44 MCH 38.9 pg (27-33) H 11/10/23 19:44 MCHC 34.3 g/dL (30-55) 11/10/23 19:44 RDW 14.4 % (12.1-15.1) 11/10/23 19:44 Plt Count 118 10^3/cmm (157-399) L 11/10/23 19:44 MPV 10.9 fL (7.4-10.4) H 11/10/23 19:44 Neut % (Auto) 58.7 % 11/10/23 19:44 Lymph % (Auto) 23.1 % 11/10/23 19:44 [place] % (Auto) 13.9 % 11/10/23 19:44 Eos % (Auto) 2.1 % 11/10/23 19:44 Baso % (Auto) 1.7 % 11/10/23 19:44 Neut # (Auto) 3.83 10^3/uL (1.8-7.7) 11/10/23 19:44 Lymph # (Auto) 1.5 10^3/uL (0.8-4.8) 11/10/23 19:44 [place] # (Auto) 0.9 10^3/uL (0.2-0.9) 11/10/23 19:44 Eos # (Auto) 0.1 10^3/uL (0.0-0.8) 11/10/23 19:44 Baso # (Auto) 0.1 10^3/uL (0.0-0.1) 11/10/23 19:44 Nucleated RBC % (auto) 0 % 11/10/23 19:44 Nucleated RBCs # 0.0 /100WBC 11/10/23 19:44 Sodium 140 mmol/L (136-145) 11/10/23 19:44 Potassium 4.3 mmol/L (3.5-5.1) 11/10/23 19:44 Chloride 104 mmol/L (98-107) 11/10/23 19:44 Carbon Dioxide 28 mmol/L (22-29) 11/10/23 19:44 Anion Gap 12.3 (5-19) 11/10/23 19:44 BUN 11 mg/dL (8-23) 11/10/23 19:44 Creatinine 0.6 mg/dL (0.7-1.2) L 11/10/23 19:44 GFR Calculation Not Reportable 11/10/23 19:44 Glucose 141 mg/dL (65-115) H 11/10/23 19:44 POC Glucose 118 mg/dL (70-110) H 11/11/23 01:16 Calculated Osmolality 292 mOsm/kg (285-295) 11/10/23 19:44 Calcium 8.1 mg/dL (8.5-10.5) L 11/10/23 19:44 Total Bilirubin 6.0 mg/dL (0.15-1.2) H 11/10/23 19:44 AST 46 U/L (0-40) H 11/10/23 19:44 ALT 28 U/L (0-41) 11/10/23 19:44 Alkaline Phosphatase 170 U/L (40-130) H 11/10/23 19:44 Total Protein 6.2 g/dL (6.6-8.7) L 11/10/23 19:44 Albumin 2.5 g/dL (3.5-5.2) L 11/10/23 19:44 Globulin 3.7 g/dL (1.3-4.6) 11/10/23 19:44 Lipase 37 U/L (13-60) 11/10/23 19:44 All radiology interpretation(s) finalized by discharge Discharge Plan Discharge Patient Disposition: Xfer Short-Term Hosp Clinical Impression: Choledocholithiasis Condition: Stable Referrals: Ramona Cr MD [Primary Care Provider] - Coding Level of Care Code ED Furnace Filler for Lennoxg Lucila
[2023-11-10 19:54] LABS: Basophils # 0.1 10^3/uL (0.0-0.1); Basophils % 1.7 %; Eosinophils # 0.1 10^3/uL (0.0-0.8); Eosinophils % 2.1 %; Hematocrit 36.1 % (37-53); Lymphocytes # 1.5 10^3/uL (0.8-4.8); Lymphocytes % 23.1 %; Mean Corpuscular HGB Conc 34.3 g/dL (30-55); Mean Corpuscular Hemoglobin 38.9 pg (27-33); Mean Corpuscular Volume 113.2 fl (82-101); Mean Platelet Volume 10.9 fL (7.4-10.4); Monocytes # 0.9 10^3/uL (0.2-0.9); Monocytes % 13.9 %; Neutrophils # 3.83 10^3/uL (1.8-7.7); Neutrophils % 58.7 %; Nucleated Red Blood Cells % 0 %; Platelet Count 118 10^3/cmm (157-399); Red Blood Count 3.19 10^6/uL (3.85-5.65); Red Cell Distribution Width 14.4 % (12.1-15.1); White Blood Count 6.53 10^3/uL (3.29-11.43)
[2023-11-10] MEDS: morphine 4 mg/mL SDV 1 mL IVP (20:02)
[2023-11-10] MEDS: ondansetron 2 mg/ML SDV 2 mL 4 MG IVP (20:03)
[2023-11-10 20:21] LABS: Alanine Aminotransferase 28 U/L (0-41); Albumin Level 2.5 g/dL (3.5-5.2); Alkaline Phosphatase 170 U/L (40-130); Anion Gap 12.3 (5-19); Aspartate Amino Transferase 46 U/L (0-40); Blood Urea Nitrogen 11 mg/dL (8-23); Calcium 8.1 mg/dL (8.5-10.5); Carbon Dioxide 28 mmol/L (22-29); Chloride 104 mmol/L (98-107); Creatinine Clr Calc Pharmacy 94.1994; Globulin 3.7 g/dL (1.3-4.6); Glucose 141 mg/dL (65-115); Lipase 37 U/L (13-60); Osmolality Calculated 292 mOsm/kg (285-295); Potassium 4.3 mmol/L (3.5-5.1); Sodium 140 mmol/L (136-145); Total Protein 6.2 g/dL (6.6-8.7)
[2023-11-10] MEDS: piperacillin-tazobactam 3.375 GM in sodium chloride 0.9% (plus) 50 ML IV (21:26)
--- NOTE | 2023-11-10 21:53 | PC.NURSE ---
asked nurse if patient could have his nighttime meds. Dr Soler notified of med requests; held Eliquis but resumed other meds.
[2023-11-10] MEDS: flecainide 100 mg Tablet PO (21:59)
[2023-11-11] VITALS (11 sets, daily range): BP systolic 107–149; BP diastolic 62–78; PULSE 70–87; RESP 16–18; TEMP 36.4; O2SAT 92–98
[2023-11-11 01:18] LABS: Glucose Point of Care 118 mg/dL (70-110)
--- NOTE | 2023-11-11 03:11 | PC.NURSE ---
Report called to Alejandra Portillo RN at [facility]. Patient to be transferred [id number].
[2023-11-11] MEDS: piperacillin-tazobactam 3.375 GM in sodium chloride 0.9% (plus) 50 ML IV (05:32)
--- NOTE | 2023-11-11 07:59 | PC.NURSE ---
VERBAL ORDERS FROM DR. HARTMAN FOR PATIENT TO TAKE HOME MEDS INCLUDING FLECAINIDE, PANTOPRAZOLE, XIFAXAN. PATIENT TOOK HOME MEDS
[2023-11-11] MEDS: lactulose oral liq 20 gm/30 mL UDC 10 GM PO (08:18)
== END 2023-11-11 10:18 | disposition short-term general hospital (02) ==
PROVIDERS: Emergency Provider Emergency Medicine; PCP Family Medicine
DX: K80.50 Calculus of bile duct without cholangitis or cholecystitis without obstruction (principal); Z95.0 Presence of cardiac pacemaker; Z76.82 Awaiting organ transplant status
CPT/HCPCS: 36415; 36416; 76705; 80053; 82962; 83690; 85025; 96365; 99285; J2270; J2405; J2543

== ENCOUNTER 2023-12-16 10:13 | Emergency (ER) | payer OTHER, SELFPAY ==
[2023-12-16] VITALS (30 sets, daily range): BP systolic 107–145; BP diastolic 52–83; PULSE 70–77; RESP 15–22; TEMP 36.5; O2SAT 92–95; BMI 28.7
--- NOTE | 2023-12-16 10:34 | XRR_ITS ---
PROCEDURE INFORMATION: Exam: XR Chest Exam date and time: 12/16/2023 10:47 AM Age: 73 years old Clinical indication: Shortness of breath TECHNIQUE: Imaging protocol: Radiologic exam of the chest. Views: 1 view. COMPARISON: CR XR chest 1V portable [id number] 09/08/2023 10:07 AM FINDINGS: Tubes, catheters and devices: Atrioventricular pacemaker. Lungs: No significant airspace disease. Pleural spaces: Questionable small left pleural effusion. Heart/Mediastinum: Borderline cardiomegaly. Diaphragm: Asymmetric elevation of the left hemidiaphragm. Bones/joints: Unremarkable. When correlating with the previous study, no significant interval changes are present. XR/XR chest 1V [id number] IMPRESSION: Stable appearance of the chest, not significantly changed from 09/08/23.
--- NOTE | 2023-12-16 10:34 | ECG_ITS ---
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 Measurements Intervals [place] Rate: 70 P: -14 NM: 218 QRS: 9 QRSD: 130 T: 36 QT: 395 QTc: 428 Interpretive Statements ELECTRONIC ATRIAL PACEMAKER MODERATE INTRAVENTRICULAR CONDUCTION DELAY [110+ ms QRS DURATION] ABNORMAL RHYTHM ECG Compared to ECG 09/08/2023 16:22:32 Atrial fibrillation no longer present Electronically Signed On 12-16-2023 15:09:29 CDT by Matt Benitez M.D. [id number]
--- NOTE | 2023-12-16 10:36 | W.ED.SOB ---
HPI - SOB/Dyspnea General: Chief Complaint: Shortness of Breath/Dyspnea Stated Complaint: sob Time Seen by Provider: 12/16/23 10:20 History of Present Illness: HPI Narrative: 73-year-old man with history of cirrhosis A-fib status post pacemaker placement and alpha-1 antitrypsin deficiency who presents to the emergency room with shortness of breath. This has been present for a few days now. He has had some congestion which he says now is moved down into his chest. He has a cough. No chest pain. No abdominal pain. No nausea or vomiting. He has stable trace pitting tibial edema related to his liver disease he says. says he does not have COPD but does follow with a thread checker because of his alpha-1 antitrypsin disease. Review of Systems Narrative: Constitutional symptoms: Negative except as documented in HPI. Skin symptoms: Negative except as documented in HPI. Eye symptoms: Negative except as documented in HPI. ENMT symptoms: Negative except as documented in HPI. Respiratory symptoms: Negative except as documented in HPI. Cardiovascular symptoms: Negative except as documented in HPI. Gastrointestinal symptoms: Negative except as documented in HPI. Genitourinary symptoms: Negative except as documented in HPI. Musculoskeletal symptoms: Negative except as documented in HPI. Neurologic symptoms: Negative except as documented in HPI. Psychiatric symptoms: Negative except as documented in HPI. Endocrine symptoms: Negative except as documented in HPI. [facility] ED PFSH: Medical History Intermittent gross hematuria Pacemaker Upcwk-7-jckkllwzrba deficiency Sleep apnea Atrial fibrillation Surgical History History of tonsillectomy Family History Father Liver disease Social History Smoking and tobacco/nicotine status: never used tobacco/nicotine Alcohol intake: former Substance/Drug Use: never Physical Exam Narrative: EXAM NARRATIVE: General: Alert, no acute distress. Skin: Warm, dry. Head: Normocephalic, atraumatic. Neck: Supple, trachea midline. Eye: Extraocular movements are intact. Ears, nose, mouth and throat: mucosa moist. Cardiovascular: Regular, Normal peripheral perfusion. Trace tibial edema Respiratory: Coarse with some rhonchi, frequent cough, respirations are non-labored, breath sounds are equal, Symmetrical chest wall expansion. Gastrointestinal: Soft, Nontender, Non distended, Normal bowel sounds. Musculoskeletal: Normal ROM, no deformity. Neurological: Alert and oriented, No focal neurological deficit observed. Psychiatric: Cooperative, appropriate mood & affect. Course Vital Signs: Vital signs: Vital Signs Temperature 97.7 F 12/16/23 10:19 Pulse Rate 74 12/16/23 13:00 Respiratory Rate 17 12/16/23 13:00 Blood Pressure 107/67 12/16/23 13:00 Pulse Oximetry 93 12/16/23 13:00 Oxygen Delivery Me thod Room Air 12/16/23 12:30 MDM - SOB/Dyspnea Medical Decision Making Differential diagnosis for patient with shortness of breath includes but is not limited to and based on the above HPI, review of systems and physical exam: Pneumonia. Bronchitis. Asthma or COPD with acute exacerbation. Acute coronary syndrome / MA. Pulmonary embolism. Anxiety. Congestive heart failure. Viral infections including influenza and Covid-19. Atrial fibrillation. Anxiety. Pleural effusion. Pneumothorax. Workup: Lab work, chest X-ray and EKG ordered to evaluate, rule in and rule out above pathologies Lab Review: Laboratory results were reviewed and interpreted by myself the emergency room physician. No leukocytosis. White count of 7.7. Hemoglobin is 12.5. BUN and creatinine are 11 and 0.6. No elevation in his liver enzymes. Platelets are actually 159 today. Respiratory panel was done and he is positive for rhinovirus. Chest x-ray: No acute process. No infiltrate. No pneumothorax. Borderline cardiomegaly, pacemaker in place. this was reviewed and interpreted by myself the ER physician. EKG: Time 1023 rate 70 time Normal sinus rhythm, No ST-T changes, no ectopy, paced rhythm, this was reviewed and interpreted by myself the emergency room physician at 1025 Repeat EKG: Time 1237 rate 69. Normal sinus rhythm, No ST-T changes, no ectopy, paced rhythm, this was reviewed and interpreted by myself the emergency room physician at 1240 I reviewed the patient's medical record. Reexamination: Patient remained stable. No increased work of breathing. No oxygen requirements. Lab Data 12/16/23 10:27 12/16/23 10:27 Labs/Radiology: Radiology Impressions Chest X-Ray 12/16/23 10:34 IMPRESSION: Stable appearance of the chest, not significantly changed from 09/08/23. Laboratory Results WBC 7.76 10^3/uL (3.29-11.43) 12/16/23 10:27 RBC 3.19 10^6/uL (3.85-5.65) L 12/16/23 10:27 Hgb 12.50 g/dL (11.27-16.99) 12/16/23 10:27 Hct 35.8 % (37-53) L 12/16/23 10:27 MCV 112.2 fl (82-101) H 12/16/23 10:27 MCH 39.2 pg (27-33) H 12/16/23 10: MCHC 34.9 g/dL (30-55) 12/16/23 10: RDW 13.9 % (12.1-15.1) 12/16/23 10:27 Plt Count 159 10^3/cmm (157-399) 12/16/23 10: MPV 9.4 fL (7.4-10.4) 12/16/23 10:27 Neut % (Auto) 56.8 % 12/16/23 10:27 Lymph % (Auto) 26.7 % 12/16/23 10:27 [place] % (Auto) 10.6 % 12/16/23 10:27 Eos % (Auto) 3.9 % 12/16/23 10:27 Baso % (Auto) 1.5 % 12/16/23 10:27 Neut # (Auto) 4.41 10^3/uL (1.8-7.7) 12/16/23 10:27 Lymph # (Auto) 2.1 10^3/uL (0.8-4.8) 12/16/23 10:27 [place] # (Auto) 0.8 10^3/uL (0.2-0.9) 12/16/23 10:27 Eos # (Auto) 0.3 10^3/uL (0.0-0.8) 12/16/23 10:27 Baso # (Auto) 0.1 10^3/uL (0.0-0.1) 12/16/23 10:27 Nucleated RBC % (auto) 0 % 12/16/23 10:27 Nucleated RBCs # 0.0 /100WBC 12/16/23 10:27 Sodium 134 mmol/L (136-145) L 12/16/23 10:27 Potassium 4.3 mmol/L (3.5-5.1) 12/16/23 10:27 Chloride 101 mmol/L (98-107) 12/16/23 10:27 Carbon Dioxide 28 mmol/L (22-29) 12/16/23 10:27 Anion Gap 9.3 (5-19) 12/16/23 10:27 BUN 11 mg/dL (8-23) 12/16/23 10:27 Creatinine 0.6 mg/dL (0.7-1.2) L 12/16/23 10:27 GFR Calculation Not Reportable 12/16/23 10: Glucose 95 mg/dL (65-115) 12/16/23 10:27 Calculated Osmolality 277 mOsm/kg (285-295) L 12/16/23 10:27 Calcium 7.7 mg/dL (8.5-10.5) L 12/16/23 10:27 Total Bilirubin 6.0 mg/dL (0.15-1.2) H 12/16/23 10:27 AST 44 U/L (0-40) H 12/16/23 10:27 ALT 20 U/L (0-41) 12/16/23 10:27 Alkaline Phosphatase 177 U/L (40-130) H 12/16/23 10:27 Troponin T Baseline 19 ng/L (0-15) H 12/16/23 10:27 Troponin T 120 Minute 21.80 ng/L (0-15) H 12/16/23 12:39 Delta Troponin T 2.80 ABS# (0-10) 12/16/23 12:39 NT-Pro-B Natriuret Pep 167 pg/mL (0-125) H 12/16/23 10:27 Total Protein 5.9 g/dL (6.6-8.7) L 12/16/23 10:27 Albumin 2.2 g/dL (3.5-5.2) L 12/16/23 10:27 Globulin 3.7 g/dL (1.3-4.6) 12/16/23 10:27 Adenovirus (PCR) Not detected (NOT DETECT) 12/16/23 10:51 C. pneumoniae DNA (PCR) Not detected (NOT DETECT) 12/16/23 10:51 Coronavirus 229E (PCR) Not detected (NOT DETECT) 12/16/23 10:51 Human Metapneumovir PCR Not detected (NOT DETECT) 12/16/23 10:51 Influenza A (H1) PCR Not detected (NOT DETECT) 12/16/23 10:51 Influ A (H1/09) PCR Not detected (NOT DETECT) 12/16/23 10:51 Influenza A (H3) PCR Not detected (NOT DETECT) 12/16/23 10:51 Influenza Type A (PCR) Not detected (NOT DETECT) 12/16/23 10:51 Influenza Type B (PCR) Not detected (NOT DETECT) 12/16/23 10:51 M. pneumoniae (PCR) Not detected (NOT DETECT) 12/16/23 10:51 Parainfluenza 1 (PCR) Not detected (NOT DETECT) 12/16/23 10:51 Parainfluenza 2 (PCR) Not detected (NOT DETECT) 12/16/23 10:51 Parainfluenza 3 (PCR) Not detected (NOT DETECT) 12/16/23 10:51 Parainfluenza 4 (PCR) Not detected (NOT DETECT) 12/16/23 10:51 RSV Type A (PCR) Not detected (NOT DETECT) 12/16/23 10:51 RSV Type B (PCR) Not detected (NOT DETECT) 12/16/23 10:51 Entero/Rhino (PCR) Detected (NOT DETECT) A 12/16/23 10:51 SARS-CoV-2 (PCR) Not detected (NOT DETECT) 12/16/23 10:51 All radiology interpretation(s) finalized by discharge Other Data Assessment and plan: Rhinovirus Cirrhosis -IV Decadron in the emergency room - Discharged home - Discussed findings and plan with patient. Answered any questions. - All laboratory values were reviewed and interpreted personally by myself, the ER physician - All imaging was reviewed and interpreted personally by myself, the ER physician. - Evaluation and treatment of this problem were appropriate in the emergency setting Discharge Plan Discharge Patient Disposition: Home Clinical Impression: Rhinovirus Condition: Stable Prescriptions: New albuterol sulfate 90 mcg/actuation HFA aerosol inhaler 2 inh inhalation Q4H PRN (Reason: shortness of breath or wheezing) Qty: 6.7 0RF Rx Instructions: Please provide patient with a spacer azithromycin [Zithromax Z-Kendall] 250 mg tablet See Rx Instructions .ROUTE .COMPLEX Qty: 6 0RF Rx Instructions: For 250 mg dose pack: take 500 mg today (day 1), then 250 mg for 4 days (days 2-5) dexamethasone 6 mg tablet 6 mg PO DAILY 5 Days Qty: 5 0RF No Action albuterol sulfate [Ventolin HFA] 90 mcg/actuation HFA aerosol inhaler 1 inh inhalation QID PRN (Reason: shortness of breath or wheezing) Qty: 8.5 4RF flecainide 100 mg Tablet 100 mg PO Q12H epinephrine 0.3 mg/0.3 mL Syringe 0.3 mg IM Q30M PRN (Reason: Anaphylaxis) Rx Instructions: do not exceed 12 doses per 24 hrs rifaximin 550 mg tablet 550 mg PO BID Qty: 60 0RF pantoprazole [Protonix] 20 mg Tablet,Delayed Release (Dr/Ec) 20 mg PO QAM ondansetron 4 mg tablet,disintegrating 4 mg PO Q6H PRN (Reason: nausea and vomiting) Qty: 14 0RF oxycodone 5 mg tablet 5 mg PO Q8H PRN (Reason: Pain) lactulose 20 gram/30 mL solution 15 ml PO QID Qty: 180 0RF Vitamin D3 25 mcg (1,000 unit) tablet 2,000 unit PO DAILY ursodiol 500 mg tablet 500 mg PO BID spironolactone 50 mg Tablet 50 mg PO QAM Discharge Orders: Discharge ED (Routine); Ordered 12/16/23 Ordered By: Lesley Isaacs Referrals: Ramona Cr MD [Primary Care Provider] - (You have been screened and evaluated and felt safe for discharge. Health conditions do change or evolve sometimes and as such it is important that you follow up with your Primary Doctor to be re checked, 3-5 days is a general good time frame for follow up. You are always welcome to return to the ED for re assessment if your symptoms are worsening or you have new concerns) Discharge Diet: Usual diet Discharge Activity: Increase activity as tolerated Patient Instructions: Upper Respiratory Infection (ED) Coding Level of Care Code ED Paste Mixing Supervisor for Heike Gaytan
[2023-12-16 10:42] LABS: Basophils # 0.1 10^3/uL (0.0-0.1); Basophils % 1.5 %; Eosinophils # 0.3 10^3/uL (0.0-0.8); Eosinophils % 3.9 %; Hematocrit 35.8 % (37-53); Lymphocytes # 2.1 10^3/uL (0.8-4.8); Lymphocytes % 26.7 %; Mean Corpuscular HGB Conc 34.9 g/dL (30-55); Mean Corpuscular Hemoglobin 39.2 pg (27-33); Mean Corpuscular Volume 112.2 fl (82-101); Mean Platelet Volume 9.4 fL (7.4-10.4); Monocytes # 0.8 10^3/uL (0.2-0.9); Monocytes % 10.6 %; Neutrophils # 4.41 10^3/uL (1.8-7.7); Neutrophils % 56.8 %; Nucleated Red Blood Cells % 0 %; Platelet Count 159 10^3/cmm (157-399); Red Blood Count 3.19 10^6/uL (3.85-5.65); Red Cell Distribution Width 13.9 % (12.1-15.1); White Blood Count 7.76 10^3/uL (3.29-11.43)
[2023-12-16 10:55] LABS: Troponin(5th) Baseline 19 ng/L (0-15)
[2023-12-16 11:09] LABS: Alanine Aminotransferase 20 U/L (0-41); Albumin Level 2.2 g/dL (3.5-5.2); Alkaline Phosphatase 177 U/L (40-130); Anion Gap 9.3 (5-19); Aspartate Amino Transferase 44 U/L (0-40); Blood Urea Nitrogen 11 mg/dL (8-23); Calcium 7.7 mg/dL (8.5-10.5); Carbon Dioxide 28 mmol/L (22-29); Chloride 101 mmol/L (98-107); Creatinine Clr Calc Pharmacy 95.9378; Globulin 3.7 g/dL (1.3-4.6); Glucose 95 mg/dL (65-115); NT Pro B Type Natriuretic Pept 167 pg/mL (0-125); Osmolality Calculated 277 mOsm/kg (285-295); Potassium 4.3 mmol/L (3.5-5.1); Sodium 134 mmol/L (136-145); Total Protein 5.9 g/dL (6.6-8.7)
--- NOTE | 2023-12-16 12:37 | ECG_ITS ---
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 Measurements Intervals [place] Rate: 69 P: -80 IN: 224 QRS: 180 QRSD: 138 T: 195 QT: 428 QTc: 461 Interpretive Statements ELECTRONIC ATRIAL PACEMAKER INTRAVENTRICULAR CONDUCTION DELAY [130+ ms QRS DURATION] POSSIBLE RIGHT VENTRICULAR HYPERTROPHY [SOME/ALL OF: PROMINENT R IN V1, LATE TRANSITION, RAD, GENNARO, SSS] Compared to ECG 09/08/2023 16:22:32 Atrial fibrillation no longer present Electronically Signed On 12-16-2023 15:13:17 CDT by Matt Benitez M.D. [email or web address]
[2023-12-16 12:50] LABS: Adenovirus Not Detected (NOT DETECT); Chlamydia Pneumoniae Not Detected (NOT DETECT); Coronavirus 229E,HKU1,NL63,OC4 Not Detected (NOT DETECT); Human Metapneumovirus Not Detected (NOT DETECT); Human Rhinovirus/Enterovirus Detected (NOT DETECT); Influenza A Not Detected (NOT DETECT); Influenza A H1 Not Detected (NOT DETECT); Influenza A H1-2009 Not Detected (NOT DETECT); Influenza A H3 Not Detected (NOT DETECT); Influenza B Not Detected (NOT DETECT); Mycoplasma Pneumoniae Not Detected (NOT DETECT); Parainfluenza Virus Type 1 Not Detected (NOT DETECT); Parainfluenza Virus Type 2 Not Detected (NOT DETECT); Parainfluenza Virus Type 3 Not Detected (NOT DETECT); Parainfluenza Virus Type 4 Not Detected (NOT DETECT); Respiratory Syncytial Virus A Not Detected (NOT DETECT); Respiratory Syncytial Virus B Not Detected (NOT DETECT); SARS-COV-2 Not Detected (NOT DETECT)
[2023-12-16] MEDS: dexamethasone 10 mg/mL INJ IVP (13:21)
== END 2023-12-16 13:43 | disposition home or self-care (01) ==
PROVIDERS: Emergency Provider Emergency Medicine; PCP Family Medicine
DX: B34.8 Other viral infections of unspecified site (principal); Z11.52 Encounter for screening for COVID-19; Z95.0 Presence of cardiac pacemaker
CPT/HCPCS: 71045; 80053; 83880; 84484; 85025; 87486; 87581; 87633; 93005; 96374; 99285; J1100

== ENCOUNTER 2023-12-17 12:09 | Emergency (ER) | payer OTHER, MEDICARE, BC, SELFPAY ==
[2023-12-17 12:10] VITALS: BP 103/63; PULSE 71; TEMP 37.1; O2SAT 94
[2023-12-17 12:16] VITALS: BP 103/63; PULSE 74; RESP 16; O2SAT 92
--- NOTE | 2023-12-17 12:16 | XR_ITS ---
WS: [id number] PORTABLE CHEST HISTORY: dyspnea COMPARISON: 12/16/2023, CT at the lung bases 09/09/2023 Mild elevation of the LEFT diaphragm. Stomach and colon moved into the LEFT lower thorax. Mild atelec tasis. Mild pleural thickening and possible tiny effusion at the LEFT base. Lungs are mildly hyperinf lated. Cardiac size: Moderately enlarged cardiac silhouette. Mediastinum/Aorta: Mild atherosclerosis aorta. Pulmonary arteries appear prominent from hypertension. Similar to prior studies. Prior dual lead subclavian pacer. No osseous abnormality seen. IMPRESSION: 1. Mild elevation LEFT hemidiaphragm. Similar to prior studies. Tiny pleural effusion or pleural thi ckening may be present. 2. Prominent pulmonary arteries consistent with pulmonary hypertension. 3. Cardiomegaly.
--- NOTE | 2023-12-17 12:17 | ECG_ITS ---
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 Measurements Intervals Savery Rate: 71 P: 231 SD: 233 QRS: 42 QRSD: 121 T: 26 QT: 356 QTc: 388 Interpretive Statements ELECTRONIC ATRIAL PACEMAKER MODERATE INTRAVENTRICULAR CONDUCTION DELAY [110+ ms QRS DURATION] ABNORMAL RHYTHM ECG Compared to ECG 12/16/2023 12:37:42 Atrial abnormality no longer present Electronically Signed On 12-18-2023 19:26:05 CDT by Jarred Mary M.D. [email or web address] [id number]
--- NOTE | 2023-12-17 12:25 | W.ED.SOB ---
HPI - SOB/Dyspnea General: Chief Complaint: Shortness of Breath/Dyspnea Stated Complaint: SOB Time Seen by Provider: 12/17/23 12:12 History of Present Illness: HPI Narrative: 73-year-old male presents to the emergency department via EMS personnel with complaints and feeling like he is having increased shortness of breath. He was seen yesterday here in the emergency department and diagnosed with rhinovirus. He states that he was at home and checked his oxygen saturation and felt that the representation of 88% on room air was causing him shortness of breath. He states he continues to have a intermittent cough since yesterday. He states he did use his albuterol inhaler 2 times earlier this morning and he states he felt that that did help significantly. He denies chest pain dizziness or lightheaded feeling. He states he feels like his cough has been unchanged since yesterday. Associated symptoms: Deny chest pain Review of Systems General: Reports: 10 or more systems reviewed and unremarkable except in HPI and below Card: Denies: chest pain Resp: Reports: dyspnea and non-productive cough [facility] PFSH: Medical History Intermittent gross hematuria Pacemaker Zumnv-3-[id number] deficiency Sleep apnea Atrial fibrillation Surgical History History of tonsillectomy Family History Father Liver disease Social History Smoking and tobacco/nicotine status: never used tobacco/nicotine Alcohol intake: former Substance/Drug Use: never Physical Exam Narrative: EXAM NARRATIVE: General: Alert, no acute distress. Skin: Warm, dry, Intact. Head: Normocephalic, atraumatic. Neck: Supple, trachea midline. No JVD, no lymphadenopathy, Eye: Extraocular movements are intact. PERRLA Ears, nose, mouth and throat: mucosa moist. Cardiovascular: Regular, Normal peripheral perfusion. Respiratory: Intermittent expiratory wheezing, respirations are non-labored, breath sounds are equal, Symmetrical chest wall expansion. Oxygen saturation 95% on room air. Gastrointestinal: Soft, Nontender, Non distended, Normal bowel sounds. Musculoskeletal: Normal ROM, no deformity. Neurological: Alert and oriented, No focal neurological deficit observed. Psychiatric: Cooperative, appropriate mood & affect. Course Vital Signs: Vital signs: Vital Signs Temperature 98.8 F 12/17/23 12:10 Pulse Rate 70 12/17/23 12:52 Respiratory Rate 16 12/17/23 12:52 Blood Pressure 103/63 12/17/23 12:16 Pulse Oximetry 93 12/17/23 12:52 Oxygen Delivery Me thod Room Air 12/17/23 12:52 MDM - SOB/Dyspnea Medical Decision Making Physical exam completed and documented, I will obtain a CBC, CMP, blood cultures, procalcitonin and lactic acid, chest x-ray and a urinalysis. Differential diagnosis for patient with shortness of breath includes but is not limited to and based on the above HPI, review of systems and physical exam: Pneumonia. Bronchitis. Asthma or COPD with acute exacerbation. Acute coronary syndrome / NM. Pulmonary embolism. Anxiety. Congestive heart failure. Viral infections including influenza and Covid-19. Atrial fibrillation. Anxiety. Pleural effusion. Pneumothorax. Workup: Lab work, chest X-ray and EKG ordered to evaluate, rule in and rule out above pathologies Lab Review: Laboratory results were reviewed and interpreted by myself. Chest x-ray: No acute process. No infiltrate. No pneumothorax. Pacemaker in place. Unchanged from previous on 12/16/2023. EKG: Time 1231 rate 71 normal sinus rhythm, No ST-T changes, no ectopy, paced rhythm, this was reviewed and interpreted by myself the emergency room physician at 1233 I reviewed the patient's medical record. Reexamination: Patient remained stable. No increased work of breathing. No oxygen requirements. I discussed the laboratory findings as well as the chest x-ray and advised continued supportive care to include taking the antibiotics that were prescribed yesterday as well as the Decadron. 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 I suspect most likely the patient's home O2 pulse oximetry was incorrect due to temperature of the extremities. I did have an extensive discussion with the patient regarding the importance of ensuring that his hands were warm and that he continue to take his medications. Medical Records I reviewed the patient's medical records. Lab Data I reviewed the patient's lab results. 12/17/23 12:31 12/17/23 12:31 Labs/Radiology: Laboratory Results WBC 20.39 10^3/uL (3.29-11.43) H 12/17/23 12:31 RBC 3.24 10^6/uL (3.85-5.65) L 12/17/23 12:31 Hgb 12.80 g/dL (11.27-16.99) 12/17/23 12:31 Hct 37.0 % (37-53) 12/17/23 12:31 MCV 114.2 fl (82-101) H 12/17/23 12:31 MCH 39.5 pg (27-33) H 12/17/23 12:31 MCHC 34.6 g/dL (30-55) 12/17/23 12:31 RDW 14.0 % (12.1-15.1) 12/17/23 12:31 Plt Count 145 10^3/cmm (157-399) L 12/17/23 12:31 MPV 9.8 fL (7.4-10.4) 12/17/23 12:31 Neut % (Auto) 90.1 % 12/17/23 12: Lymph % (Auto) 6.6 % 12/17/23 12:31 [place] % (Auto) 2.5 % 12/17/23 12:31 Eos % (Auto) 0.0 % 12/17/23 12:31 Baso % (Auto) 0.2 % 12/17/23 12:31 Neut # (Auto) 18.36 10^3/uL (1.8-7.7) H 12/17/23 12:31 Lymph # (Auto) 1.4 10^3/uL (0.8-4.8) 12/17/23 12:31 [place] # (Auto) 0.5 10^3/uL (0.2-0.9) 12/17/23 12:31 Eos # (Auto) 0.0 10^3/uL (0.0-0.8) 12/17/23 12:31 Baso # (Auto) 0.0 10^3/uL (0.0-0.1) 12/17/23 12:31 Nucleated RBC % (auto) 0 % 12/17/23 12:31 Nucleated RBCs # 0.0 /100WBC 12/17/23 12:31 Specimen Type Arterial 12/17/23 12:35 Sample Site Radial, right 12/17/23 12:35 ABG pH 7.45 (7.35-7.45) 12/17/23 12:35 ABG pCO2 41.4 mmHg (35-45) 12/17/23 12:35 ABG pO2 63.1 mmHg (80.0-100.0) L 12/17/23 12:35 ABG PO2/FiO2 Ratio 0 12/17/23 12:35 ABG HCO3 28.8 mmol/L (22-26) H 12/17/23 12:35 ABG O2 Saturation 93.3 12/17/23 12:35 ABG Base Excess 4.3 mmol/L (-2.0-2.0) H 12/17/23 12:35 Albert Test Pos 12/17/23 12:35 A-a O2 Gradient 4.5 mmHg (5-10) L 12/17/23 12:35 Hematocrit 38.8 % (42-52) L 12/17/23 12:35 Hgb O2 Saturation 90.8 % (95-100) L 12/17/23 12:35 Carboxyhemoglobin 2.2 %THgb (0.4-20.1) 12/17/23 12:35 Methemoglobin 0.5 % (0.4-1.5) 12/17/23 12:35 Total Hemoglobin 12.7 g/dL (14-18) L 12/17/23 12:35 Sodium 133.0 mmol/L (131-143) 12/17/23 12:35 Potassium 4.5 mmol/L (3.5-5.0) 12/17/23 12:35 Glucose 155.0 mg/dL (70-115) H 12/17/23 12:35 Ionized Calcium 1.2 mmol/L (1.1-1.4) 12/17/23 12:35 O2 Delivery Device Room air 12/17/23 12:35 FiO2 21.0 % 12/17/23 12:35 Chief Recordist ID [place] 12/17/23 12:35 Sodium 134 mmol/L (136-145) L 12/17/23 12:31 Potassium 5.2 mmol/L (3.5-5.1) H 12/17/23 12:31 Chloride 99 mmol/L (98-107) 12/17/23 12:31 Carbon Dioxide 28 mmol/L (22-29) 12/17/23 12:31 Anion Gap 12.2 (5-19) 12/17/23 12:31 BUN 14 mg/dL (8-23) 12/17/23 12:31 Creatinine 0.6 mg/dL (0.7-1.2) L 12/17/23 12:31 GFR Calculation Not Reportable 12/17/23 12:31 Glucose 155 mg/dL (65-115) H 12/17/23 12:31 Calculated Osmolality 282 mOsm/kg (285-295) L 12/17/23 12:31 Calcium 8.4 mg/dL (8.5-10.5) L 12/17/23 12:31 Total Bilirubin 6.1 mg/dL (0.15-1.2) H 12/17/23 12:31 AST 39 U/L (0-40) 12/17/23 12:31 ALT 22 U/L (0-41) 12/17/23 12:31 Alkaline Phosphatase 180 U/L (40-130) H 12/17/23 12:31 Troponin T Baseline 15 ng/L (0-15) 12/17/23 12:31 NT-Pro-B Natriuret Pep 206 pg/mL (0-125) H 12/17/23 12:31 Total Protein 6.4 g/dL (6.6-8.7) L 12/17/23 12:31 Albumin 2.2 g/dL (3.5-5.2) L 12/17/23 12:31 Globulin 4.2 g/dL (1.3-4.6) 12/17/23 12:31 All radiology interpretation(s) finalized by discharge EKG Data EKG 1: Interpretation: Twelve-lead EKG obtained at 1231 reviewed 1233 demonstrates paced rhythm with underlying sinus rhythm, ventricular rate 71, MO interval 233 QRS duration 121, QT 356, QTc [address] elevation or depression at present to demonstrate acute ischemia or infarction Discharge Plan Discharge Patient Disposition: Home Clinical Impression: Viral upper respiratory illness Cough Qualifiers: Cough type: acute Qualified Code(s): R05.1 - Acute cough Condition: Stable Prescriptions: New benzonatate 200 mg capsule 200 mg PO TID Qty: 30 0RF guaifenesin 1,200 mg tablet extended release 12hr 1,200 mg PO BID Qty: 14 0RF No Action albuterol sulfate [Ventolin HFA] 90 mcg/actuation HFA aerosol inhaler 1 inh inhalation QID PRN (Reason: shortness of breath or wheezing) Qty: 8.5 4RF flecainide 100 mg Tablet 100 mg PO Q12H epinephrine 0.3 mg/0.3 mL Syringe 0.3 mg IM Q30M PRN (Reason: Anaphylaxis) Rx Instructions: do not exceed 12 doses per 24 hrs rifaximin 550 mg tablet 550 mg PO BID Qty: 60 0RF pantoprazole [Protonix] 20 mg Tablet,Delayed Release (Dr/Ec) 20 mg PO QAM ondansetron 4 mg tablet,disintegrating 4 mg PO Q6H PRN (Reason: nausea and vomiting) Qty: 14 0RF oxycodone 5 mg tablet 5 mg PO Q8H PRN (Reason: Pain) lactulose 20 gram/30 mL solution 15 ml PO QID Qty: 180 0RF Vitamin D3 25 mcg (1,000 unit) tablet 2,000 unit PO DAILY ursodiol 500 mg tablet 500 mg PO BID spironolactone 50 mg Tablet 50 mg PO QAM albuterol sulfate 90 mcg/actuation HFA aerosol inhaler 2 inh inhalation Q4H PRN (Reason: shortness of breath or wheezing) Qty: 6.7 0RF Rx Instructions: Please provide patient with a spacer Zithromax Z-Kendall 250 mg tablet See Rx Instructions .ROUTE .COMPLEX Qty: 6 0RF Rx Instructions: For 250 mg dose pack: take 500 mg today (day 1), then 250 mg for 4 days (days 2-5) dexamethasone 6 mg tablet 6 mg PO DAILY 5 Days Qty: 5 0RF Discharge Orders: Discharge ED (Routine); Ordered 12/17/23 Ordered By: Eren Kwan Referrals: Ramona Cr MD [Primary Care Provider] - Discharge Diet: Usual diet Discharge Activity: Resume usual activity Patient Instructions: Opioid Safety, Pain Management Activity Restrictions/Additional Instructions: Activity Restrictions/Additional Instructions: Thank you for choosing [facility] for your healthcare needs today. Please realize that you were seen in the Emergency Department and that we are providing you with an emergency medical screening exam and this may not be a complete and all inclusive of all the testing and or medical work-up that you may need to determine your ailment or severity of your illness. It is very important that you follow-up as instructed with your Primary care provider or Specialist for additional evaluation and to discuss your medical treatment plan. Coding Level of Care Code ED Certified Pest Control Technician for Heike Gaytan
[2023-12-17 12:46] LABS: ABG PCO2 41.4 mmHg (35-45); ABG PH Result 7.45 (7.35-7.45); Alveolar-Arterial Oxygen Gradi 4.5 mmHg (5-10); Arterial Blood Gas Hematocrit 38.8 % (42-52); Base Excess ABG 4.3 mmol/L (-2.0-2.0); Blood Gas Allen Test Pos; Blood Gas Operator Identificat WALCI; Blood Gas Sample Site Radial, right; Blood Gas Sample Type Arterial; Carboxyhemoglobin 2.2 %THgb (0.4-20.1); HCO3 ABG 28.8 mmol/L (22-26); HGB O2 Sat 90.8 % (95-100); Ionized Calcium Level - ABG 1.2 mmol/L (1.1-1.4); Methemoglobin 0.5 % (0.4-1.5); Oxygen Device ROOM AIR; Oxygen Saturation ABG 93.3; PO2 ABG 63.1 mmHg (80.0-100.0); PO2 FiO2 Ratio Arterial Blood 0; Potassium Level - ABG 4.5 mmol/L (3.5-5.0); Total Hemoglobin 12.7 g/dL (14-18)
[2023-12-17 12:52] VITALS: PULSE 70; RESP 16; O2SAT 93
[2023-12-17 12:54] LABS: Basophils % 0.2 %; Lymphocytes # 1.4 10^3/uL (0.8-4.8); Lymphocytes % 6.6 %; Mean Corpuscular HGB Conc 34.6 g/dL (30-55); Mean Corpuscular Hemoglobin 39.5 pg (27-33); Mean Corpuscular Volume 114.2 fl (82-101); Mean Platelet Volume 9.8 fL (7.4-10.4); Monocytes # 0.5 10^3/uL (0.2-0.9); Monocytes % 2.5 %; Neutrophils # 18.36 10^3/uL (1.8-7.7); Neutrophils % 90.1 %; Nucleated Red Blood Cells % 0 %; Platelet Count 145 10^3/cmm (157-399); Red Blood Count 3.24 10^6/uL (3.85-5.65); White Blood Count 20.39 10^3/uL (3.29-11.43)
[2023-12-17] MEDS: ipratropium-albuterol 3 mL Neb INHALATION (12:55)
[2023-12-17 13:13] LABS: Troponin(5th) Baseline 15 ng/L (0-15)
[2023-12-17 13:22] LABS: Alanine Aminotransferase 22 U/L (0-41); Albumin Level 2.2 g/dL (3.5-5.2); Alkaline Phosphatase 180 U/L (40-130); Anion Gap 12.2 (5-19); Aspartate Amino Transferase 39 U/L (0-40); Blood Urea Nitrogen 14 mg/dL (8-23); Calcium 8.4 mg/dL (8.5-10.5); Carbon Dioxide 28 mmol/L (22-29); Chloride 99 mmol/L (98-107); Creatinine Clr Calc Pharmacy 96.3729; Globulin 4.2 g/dL (1.3-4.6); Glucose 155 mg/dL (65-115); NT Pro B Type Natriuretic Pept 206 pg/mL (0-125); Osmolality Calculated 282 mOsm/kg (285-295); Potassium 5.2 mmol/L (3.5-5.1); Sodium 134 mmol/L (136-145); Total Bilirubin 6.1 mg/dL (0.15-1.2); Total Protein 6.4 g/dL (6.6-8.7)
[2023-12-17 13:52] VITALS: BP 109/67; PULSE 71; RESP 16; TEMP 37.1; O2SAT 92
== END 2023-12-17 14:02 | disposition home or self-care (01) ==
PROVIDERS: Emergency Provider Internal Medicine; PCP Family Medicine
DX: B34.9 Viral infection, unspecified (principal); R05.1 Acute cough; Z95.0 Presence of cardiac pacemaker
CPT/HCPCS: 36600; 71045; 80051; 80053; 82330; 82805; 83880; 84484; 85025; 93005; 94640; 99285

== ENCOUNTER → 2023-12-20 14:21 | Outpatient (BNVA) | payer OTHER, SELFPAY | PROVIDERS: PCP Family Medicine; Visit Provider Internal Medicine Pulmonary Disease | DX: R06.02 Shortness of breath (principal); E88.01 Alpha-1-antitrypsin deficiency | CPT/HCPCS: 36415; 82785; 86003; 99214 ==

== ENCOUNTER 2023-12-31 10:48 | Emergency (ER) | payer OTHER, SELFPAY ==
[2023-12-31] VITALS (12 sets, daily range): BP systolic 106–123; BP diastolic 62–78; PULSE 69–81; RESP 15–19; TEMP 36.4; O2SAT 94–97; BMI 29.9
--- NOTE | 2023-12-31 12:10 | XR_ITS ---
WS: [id number] Portable AP upright chest, 12/31/2023 Clinical Data: weakness Comparison: Portable chest, 12/17/2023 Findings: There is opacification in the left lower lobe which may represent a combination of atelecta sis, pneumonia and effusion. The right lung is clear. The heart size is probably normal. The cardiac pacemaker with leads in the heart remains the same. No nodules or masses are seen. There is no pneum othorax or pulmonary vascular congestion.. XR/XR chest 1V portable [id number] Impression: 1. Development of left lower lobe opacity which could represent atelectasis, pn eumonia and effusion. 2. No change in cardiac pacemaker.
--- NOTE | 2023-12-31 12:14 | CTR_ITS ---
PROCEDURE INFORMATION: Exam: CTA Chest With Contrast Exam date and time: 12/31/2023 1:18 PM Age: 73 years old Clinical indication: Abdominal pain; Generalized; On breathing; Additional info: Abd pain TECHNIQUE: Imaging protocol: Computed tomographic angiography of the chest with contrast. Exam focused on the arteries. 3D rendering (Not supervised by radiologist): MIP and/or 3D reconstructed images were created by the technologist. Radiation optimization: All CT scans at this facility use at least one of these dose optimization techniques: automated exposure control; mA and/or kV adjustment per patient size (includes targeted exams where dose is matched to clinical indication); or iterative reconstruction. Contrast material: OMNI 350; Contrast volume: 100 ml; Contrast route: INTRAVENOUS (IV); COMPARISON: CR XR chest 1V portable [id number] 12/31/2023 12:54 PM RADIATION DOSE METRICS: Total DLP (mGy-cm): 1506.04 FINDINGS: Limitations: Study partially limited by streak artifact. Tubes, catheters and devices: Dual chamber pacemaker/cardioverter in appropriate position with lead tips in the right atrium and right ventricle. Pulmonary arteries: The pulmonary arteries demonstrate moderate central enlargement, consistent with moderate pulmonary hypertension. No large filling defects in the pulmonary arterial tree. Great vessels off aortic arch: There is a bovine aortic arch, with a common origin of the left common carotid and brachiocephalic arteries. Aorta: The aorta demonstrates mild atherosclerotic calcification. Aorta normal in course and caliber. No acute pathology in the aorta. Lungs: Extensive bilateral dependent and compressive atelectasis in both lungs. There are multiple punctate pulmonary parenchymal calcifications, consistent with remote granulomatous organism exposure. No acute interstitial or airspace disease. Platelike atelectasis in the right lower lobe. Visualized airways are patent. Pleural spaces: Large layering left pleural effusion. There is no evidence of pneumothorax. Heart: The heart demonstrates marked diffuse enlargement. No filling defects in the left atrial appendage. No pericardial thickening or effusion. Coronary arteries: There is moderate atherosclerotic calcification of the coronary arteries. Lymph nodes: No concerning adenopathy. Bones/joints: Normal variant sternal os is present. Mild multilevel degenerative changes of the spine, as manifested by multilevel anterior osteophytes and multilevel decrease in intervertebral disc space. No acute fracture, dislocation, or aggressive osseous lesion. Soft tissues: Moderate diffuse body wall edema, worse on the left side. COMMENTS: Please review abdomen and pelvic CT performed on the same date for other findings. PROCEDURE INFORMATION: Exam: CT Abdomen And Pelvis With Contrast Exam date and time: 12/31/2023 1:18 PM Age: 73 years old Clinical indication: Abdominal pain; Generalized; On breathing; Additional info: Abd pain TECHNIQUE: Imaging protocol: Computed tomography of the abdomen and pelvis with contrast. Radiation optimization: All CT scans at this facility use at least one of these dose optimization techniques: automated exposure control; mA and/or kV adjustment per patient size (includes targeted exams where dose is matched to clinical indication); or iterative reconstruction. Contrast material: OMNI 350; Contrast volume: 100 ml; Contrast route: INTRAVENOUS (IV); COMPARISON: 1. CT abdomen pelvis wo con [id number] 09/09/2023 8:[address] abdomen pelvis 08/19/2023. RADIATION DOSE METRICS: Total DLP (mGy-cm): 1506.4 FINDINGS: Liver: The liver has a nodular contour and there is relative hypertrophy of the caudate lobe, consistent with cirrhosis. 12.5 mm fluid density lesion in the left hepatic lobe (series 7, image 22), 7 mm back in July 2023. 11 mm hypodense lesion in the left hepatic lobe (series 7, image 22), 5 mm in July 2023. 7 mm hypodense lesion in the left hepatic lobe (series 7, image 19), 6 mm in July 2023. No other liver lesions. Gallbladder and bile ducts: The gallbladder is contracted. Gallbladder wall hyperenhancement. CBD measures 11 mm. Pancreas: 6 mm x 5 mm hyperdense calcified structure at the pancreatic head/near the course of the distal CBD. 22 mm x 16 mm cystic lesion in the pancreatic head/body (series 7, image 32), stable since July 2023. There is diffuse, benign fatty infiltration of the pancreas. There is diffuse atrophy of the pancreatic parenchyma. Spleen: Normal. No splenomegaly. Adrenal glands: The adrenal glands are normal. Kidneys and ureters: Normal. No hydronephrosis. Stomach and bowel: Diffuse colonic diverticulosis is present. There is excessive colonic stool content. No bowel obstruction or significant bowel wall thickening. Appendix: No evidence of appendicitis. Intraperitoneal space: There is a moderate amount of free intraperitoneal fluid present. There is no free intraperitoneal air. Vasculature: Periesophageal varices. Perigastric varices. Recanalization of the umbilical vein. Perisplenic varices. Omental varices. Portal venous system is patent. The arterial vasculature demonstrates diffuse mild atherosclerotic calcification. No acute vascular pathology. No aortic aneurysms. Lymph nodes: No retroperitoneal, pelvic, or mesenteric adenopathy. Urinary bladder: Unremarkable as visualized. Reproductive: Unremarkable as visualized. Bones/joints: Chronic superior endplate compression fracture at L4 with 50% loss in vertebral body height. Moderate multilevel degenerative changes of the spine, as manifested by multilevel anterior osteophytes and multilevel decrease in intervertebral disc space. No acute fracture, dislocation, or aggressive osseous lesion. Soft tissues: No acute body wall soft tissue findings. CT/CT angio chest w abd pel w con IMPRESSION: 1. Large layering left pleural effusion. 2. Moderate diffuse body wall edema, worse on the left side. 3. Concern for pulmonary arterial hypertension. IMPRESSION: 1. At least 3 liver lesions are present. Although 1 of them resembles a cyst, they remain incompletely characterized in this examination and in this patient with cirrhosis, further evaluation with a liver protocol MRI without and with intravenous contrast is recommended as HCC is in the differential diagnosis. 2. Cirrhosis. 3. Gallbladder findings are likely related to decompressed state and underlying hepatocellular disease. Consider correlation with ultrasound if there is concern for acute gallbladder pathology. 4. Suspected distal choledocholith versus pancreatic head chronic calcification. I do not suspect that the calcification is within the pancreatic duct, as there is no pancreatic ductal dilation present. Consider correlation with MRCP. 5. Extensive sequela of portal hypertension (decompensated), including: Extensive portosystemic collateral circulation (perigastric, periesophageal, and perisplenic varices), moderate volume abdominopelvic ascites, and moderate volume body wall edema. 6. 22 mm x 16 mm cystic lesion in the pancreatic head/body (series 7, image 32), stable since July 2023. Reimaging every 6 months for 2 years, then every 1 year for 2 years, then every 2 years for 6 years is recommended. Alternatively, endoscopic ultrasound with fine needle aspiration is recommended. (Reference: She, 2017) 7. Colonic diverticulosis. 8. Incidental findings as above. COMMENTS: Please review chest CT performed concomitantly for other important findings. REFERENCES: She MENDOZA, et al. Management of Incidental Pancreatic Cysts: A White Paper of the ACR Incidental Findings Committee. J Am Julio Radiol. 2017;14(7):911-923.
--- NOTE | 2023-12-31 12:16 | ED_ITS ---
HPI - Weakness 2 General: Chief complaint: Weakness Stated complaint: dr dang, confusion, weakness Time Seen by Provider: 12/31/23 12:10 Source: patient Mode of arrival: ambulatory Limitations: no limitations History of Present Illness: 73-year-old male has a history of cirrho sis end-stage liver disease he is on transplant at [facility]. He had some abdominal distention with pain he is also been having some increased confusion states that he is acting like he had before with hepatic encephalopathy. Denies any fever has had some constipation denies any vomiting. Patient had some shortness of breath as well Associated symptoms: Reports confusion; Denies chest pain, chills, fever(s), headache(s), nausea or vomiting Review of Systems 2 Const: Reports: fatigue; Denies: fever(s) or chills Eyes: Denies: blurry vision or eye discomfort ENMT: Denies: throat pain or dental pain Card: Denies: chest pain Resp: Reports: dyspnea GI: Reports: abdominal pain; Denies: nausea, vomiting or diarrhea Musc: Denies: neck pain or back pain Skin/Breast: Denies: rash Neuro: Reports: confusion; Denies: headache(s) PFSH ED 2 PFSH: Medical History Intermittent gross hematuria Pacemaker [id number] deficiency Sleep apnea Atrial fibrillation Surgical History History of tonsillectomy Family History Father Liver disease Social History Smoking and tobacco/nicotine status: never used tobacco/nicotine Alcohol intake: former Substance/Drug Use: never Physical Exam 2 Const: COMMON NORMALS: patient oriented x3 HENMT: COMMON NORMALS: normocephalic and atraumatic HEAD & SCALP: n ormocephalic and atraumatic Eye: OTHER: Scleral icterus Neck/C-Spine: COMMON NORMALS: full ROM and supple Chest: COMMONS NORMALS: normal inspection of the chest and normal palpation of entire chest wall Resp: COMMON NORMALS: normal respiratory effort, No retractions, No use of accessory muscles and clear to auscultation bilaterally AUSCULTATION: clear to auscultation bilaterally Cardio: COMMON NORMALS: regular rate, regular rhythm and No murmurs present (Cardio) RATE: regular rate RHYTHM: regular rhythm GI: COMMON NORMALS: Soft to palpation, non-tender and no masses PALPATION: Yes Soft to palpation OTHER: Slight abdominal distention Extremity: COMMON NORMALS: normal to inspection and full ROM Neuro: COMMON NORMALS: patient oriented x3, moves all extremities and no focal motor deficits Psych: COMMON NORMALS: mental status grossly normal, Normal thought process present and cooperative THOUGHT PROCESS: Normal thought process present Skin: COMMON NORMALS: no rashes or lesions noted and no wounds NARRATIVE SKIN EXAM: Jaundiced GENERAL SKIN EXAM: no rashes or lesions noted Course 2 Vital Signs: Vital signs: Vital Signs Temperature 97.6 F 12/31/23 11:06 Pulse Rate 70 12/31/23 13:50 Respiratory Rate 16 12/31/23 11:06 Blood Pressure 123/78 12/31/23 13:50 Pulse Oximetry 95 12/31/23 13:50 Oxygen Delivery Me thod Room Air 12/31/23 13:50 MDM - Weakness Medical Decision Making Patient presents here with some weakness shortness of breath he is found to have a new pleural effusion he also has elevated bilirubin from his baseline concern with a possible choledocholithiasis on CT scan he actually had an ERCP 2 months ago to remove a stone I did speak to [facility] will transfer there for higher level of care for pulmonology and GI capabilities Medical Records I reviewed the patient's medical records. Lab Data I reviewed the patient's lab results. 12/31/23 12:28 12/31/23 12:28 Radiology Impressions Chest X-Ray 12/31/23 12:10 Impression: 1. Development of left lower lobe opacity which could represent atelectasis, pneumonia and effusion. 2. No change in cardiac pacemaker. Chest/Abdomen/Pelvis CT 12/31/23 12:14 IMPRESSION: 1. Large layering left pleural effusion. 2. Moderate diffuse body wall edema, worse on the left side. 3. Concern for pulmonary arterial hypertension. IMPRESSION: 1. At least 3 liver lesions are present. Although 1 of them resembles a cyst, they remain incompletely characterized in this examination and in this patient with cirrhosis, further evaluation with a liver protocol MRI without and with intravenous contrast is recommended as HCC is in the differential diagnosis. 2. Cirrhosis. 3. Gallbladder findings are likely related to decompressed state and underlying hepatocellular disease. Consider correlation with ultrasound if there is concern for acute gallbladder pathology. 4. Suspected distal choledocholith versus pancreatic head chronic calcification. I do not suspect that the calcification is within the pancreatic duct, as there is no pancreatic ductal dilation present. Consider correlation with MRCP. 5. Extensive sequela of portal hypertension (decompensated), including: Extensive portosystemic collateral circulation (perigastric, periesophageal, and perisplenic varices), moderate volume abdominopelvic ascites, and moderate volume body wall edema. 6. 22 mm x 16 mm cystic lesion in the pancreatic head/body (series 7, image 32), stable since July 2023. Reimaging every 6 months for 2 years, then every 1 year for 2 years, then every 2 years for 6 years is recommended. Alternatively, endoscopic ultrasound with fine needle aspiration is recommended. (Reference: She, 2017) 7. Colonic diverticulosis. 8. Incidental findings as above. COMMENTS: Please review chest CT performed concomitantly for other important findings. REFERENCES: She MENDOZA, et al. Management of Incidental Pancreatic Cysts: A White Paper of the ACR Incidental Findings Committee. J Am Julio Radiol. 2017;14(7):911-923. Laboratory Results WBC 12.36 10^3/uL (3.29-11.43) H 12/31/23 12:28 RBC 3.20 10^6/uL (3.85-5.65) L 12/31/23 12:28 Hgb 12.50 g/dL (11.27-16.99) 12/31/23 12:28 Hct 35.5 % (37-53) L 12/31/23 12:28 MCV 110.9 fl (82-101) H 12/31/23 12:28 MCH 39.1 pg (27-33) H 12/31/23 12: MCHC 35.2 g/dL (30-55) 12/31/23 12: RDW 15.0 % (12.1-15.1) 12/31/23 12:28 Plt Count 80 10^3/cmm (157-399) L 12/31/23 12:28 MPV 10.3 fL (7.4-10.4) 12/31/23 12:28 Neut % (Auto) 66.4 % 12/31/23 12:28 Lymph % (Auto) 15.9 % 12/31/23 12:28 [place] % (Auto) 11.7 % 12/31/23 12: Eos % (Auto) 3.2 % 12/31/23 12:28 Baso % (Auto) 0.3 % 12/31/23 12:28 Neut # (Auto) 8.19 10^3/uL (1.8-7.7) H 12/31/23 12:28 Lymph # (Auto) 2.0 10^3/uL (0.8-4.8) 12/31/23 12:28 [place] # (Auto) 1.5 10^3/uL (0.2-0.9) H 12/31/23 12:28 Eos # (Auto) 0.4 10^3/uL (0.0-0.8) 12/31/23 12:28 Baso # (Auto) 0.0 10^3/uL (0.0-0.1) 12/31/23 12: Nucleated RBC % (auto) 0 % 12/31/23 12: Nucleated RBCs # 0.0 /100WBC 12/31/23 12:28 PT 28.70 SECONDS (12.1-14.9) H 12/31/23 12:28 INR 2.59 (0.8-1.2) H 12/31/23 12:28 Specimen Type Arterial 12/31/23 12:37 Sample Site Radial, left 12/31/23 12:37 ABG pH 7.47 (7.35-7.45) H 12/31/23 12:37 ABG pCO2 39.2 mmHg (35-45) 12/31/23 12:37 ABG pO2 67.6 mmHg (80.0-100.0) L 12/31/23 12:37 ABG PO2/FiO2 Ratio 0 12/31/23 12:37 ABG HCO3 29.0 mmol/L (22-26) H 12/31/23 12:37 ABG Base Excess 5.1 mmol/L (-2.0-2.0) H 12/31/23 12:37 Albert Test Pos 12/31/23 12:37 Hematocrit 36.4 % (42-52) L 12/31/23 12:37 O2 Delivery Device Room air 12/31/23 12:37 FiO2 21.0 % 12/31/23 12:37 Hog Raiser ID Cak 12/31/23 12:37 Sodium 127 mmol/L (136-145) L 12/31/23 12:28 Potassium 4.6 mmol/L (3.5-5.1) 12/31/23 12:28 Chloride 91 mmol/L (98-107) L 12/31/23 12:28 Carbon Dioxide 29 mmol/L (22-29) 12/31/23 12:28 Anion Gap 11.6 (5-19) 12/31/23 12:28 BUN 21 mg/dL (8-23) 12/31/23 12:28 Creatinine 0.7 mg/dL (0.7-1.2) 12/31/23 12:28 GFR Calculation Not Reportable 12/31/23 12:28 Glucose 142 mg/dL (65-115) H 12/31/23 12:28 Calculated Osmolality 269 mOsm/kg (285-295) L 12/31/23 12:28 Calcium 7.9 mg/dL (8.5-10.5) L 12/31/23 12:28 Total Bilirubin 12.8 mg/dL (0.15-1.2) H* 12/31/23 12:28 AST 60 U/L (0-40) H 12/31/23 12:28 ALT 43 U/L (0-41) H 12/31/23 12:28 Alkaline Phosphatase 155 U/L (40-130) H 12/31/23 12:28 Ammonia 22 umol/L (16-60) 12/31/23 12:28 Total Protein 5.4 g/dL (6.6-8.7) L 12/31/23 12:28 Albumin 2.2 g/dL (3.5-5.2) L 12/31/23 12:28 Globulin 3.2 g/dL (1.3-4.6) 12/31/23 12:28 Lipase 31 U/L (13-60) 12/31/23 12:28 Urine Color Dark yellow (Yellow) 12/31/23 12:24 Urine Appearance Clear (CLEAR) 12/31/23 12:24 Urine pH 6 (5-7) 12/31/23 12:24 Ur Specific [place] 1.020 (1.005-1.030) 12/31/23 12:24 Urine Protein 1+ (Negative) H 12/31/23 12:24 Urine Glucose (UA) Norm (Normal) 12/31/23 12:24 Urine Ketones Negative (Negative) 12/31/23 12:24 Urine Blood Neg (Negative) 12/31/23 12:24 Urine Nitrate Negative (Negative) 12/31/23 12:24 Urine Bilirubin 2+ (Negative) H 12/31/23 12:24 Urine Urobilinogen 8 mg/dL (Negative) H 12/31/23 12:24 Ur Leukocyte Esterase Trace (Negative) H 12/31/23 12:24 Urine RBC None /hpf (0-2) 12/31/23 12:24 Urine WBC 0-4 /hpf (0-5) H 12/31/23 12:24 Ur Squamous Epith Cells 0-4 /hpf (0-5) H 12/31/23 12:24 Amorphous Sediment Not Reportable 12/31/23 12:24 Urine Bacteria 1+ /hpf (NONE) H 12/31/23 12:24 Hyaline Casts 0-4 /lpf H 12/31/23 12:24 Coarse Granular Casts 0-4 /lpf H 12/31/23 12:24 All radiology interpretation(s) finalized by discharge EKG Data EKG 1: I personally reviewed and interpreted this EKG as follows: EKG interpretation date: 12/31/23 EKG interpretation time: 12:40 Interpretation: paced hr [address] or t wave abnormalities qrs 131 qtc 451 Discharge Plan Discharge Patient Disposition: Admitted As Inpatient Clinical Impression: Hyperbilirubinemia, Cirrhosis, Choledocholithiasis, Pleural effusion Condition: Stable Prescriptions: No Action fluticasone propion-salmeterol [Wixela Inhub] 100-50 mcg/dose blister with device 1 inh inhalation BID Qty: 60 3RF flecainide 100 mg Tablet 100 mg PO Q12H epinephrine 0.3 mg/0.3 mL Syringe 0.3 mg IM Q30M PRN (Reason: Anaphylaxis) Rx Instructions: do not exceed 12 doses per 24 hrs rifaximin 550 mg tablet 550 mg PO BID Qty: 60 0RF benzonatate 200 mg capsule 200 mg PO TID Qty: 30 0RF guaifenesin 1,200 mg tablet extended release 12hr 1,200 mg PO BID Qty: 14 0RF pantoprazole 40 mg tablet,delayed release (DR/EC) 40 mg PO BID furosemide 20 mg Tablet 20 mg PO QAM Lubricant Eye 57.3-42.5 % Ointment 1 applic OPHTHALMIC (EYE) BEDTIME PRN (Reason: Dry Eyes) lactulose 20 gram/30 mL solution 30 ml PO BID ondansetron 4 mg tablet,disintegrating 4 mg PO Q6H PRN (Reason: nausea and vomiting) Qty: 14 0RF oxycodone 5 mg tablet 5 mg PO Q8H PRN (Reason: Pain) Vitamin D3 25 mcg (1,000 unit) tablet 2,000 unit PO DAILY ursodiol 500 mg tablet 500 mg PO BID spironolactone 50 mg Tablet 50 mg PO QAM albuterol sulfate 90 mcg/actuation HFA aerosol inhaler 2 inh inhalation Q4H PRN (Reason: shortness of breath or wheezing) Qty: 6.7 0RF Rx Instructions: Please provide patient with a spacer Referrals: Ramona Cr MD [Primary Care Provider] - Coding Level of Care Code ED Counterintelligence/Hum[employer] Specialist for Heike Gaytan
--- NOTE | 2023-12-31 12:19 | PC.PHAR ---
PT IS [facility] L[facility] 12/31/23 12:20
[2023-12-31 12:39] LABS: Basophils % 0.3 %; Eosinophils # 0.4 10^3/uL (0.0-0.8); Eosinophils % 3.2 %; Hematocrit 35.5 % (37-53); Lymphocytes % 15.9 %; Mean Corpuscular HGB Conc 35.2 g/dL (30-55); Mean Corpuscular Hemoglobin 39.1 pg (27-33); Mean Corpuscular Volume 110.9 fl (82-101); Mean Platelet Volume 10.3 fL (7.4-10.4); Monocytes # 1.5 10^3/uL (0.2-0.9); Monocytes % 11.7 %; Neutrophils # 8.19 10^3/uL (1.8-7.7); Neutrophils % 66.4 %; Nucleated Red Blood Cells % 0 %; Platelet Count 80 10^3/cmm (157-399); White Blood Count 12.36 10^3/uL (3.29-11.43)
--- NOTE | 2023-12-31 12:40 | ECG_ITS ---
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 Measurements Intervals [place] Rate: 76 P: 201 HI: 254 QRS: 7 QRSD: 131 T: 45 QT: 421 QTc: 473 Interpretive Statements ELECTRONIC ATRIAL PACEMAKER INTRAVENTRICULAR CONDUCTION DELAY [130+ ms QRS DURATION] POSSIBLE ANTERIOR MYOCARDIAL INFARCTION , OF INDETERMINATE AGE [30 ms Q WAVE IN V3/V4, OR R < 0.2 mV IN V4] INFERIOR MYOCARDIAL INFARCTION , OF INDETERMINATE AGE [40+ ms Q WAVE AND/OR ST/T ABNORMALITY IN II/aVF] Compared to ECG 12/17/2023 12:31:43 Myocardial infarct finding now present Electronically Signed On 12-31-2023 14:49:32 CDT by Jer Joyce M.D. [email or web address]
[2023-12-31 12:48] LABS: Blood Gas Allen Test Pos; Blood Gas Operator Identificat CAK; Blood Gas Sample Type Arterial; Oxygen Device ROOM AIR; PO2 FiO2 Ratio Arterial Blood 0
[2023-12-31 12:49] LABS: Protein Urine 1+ (Negative); Urine Appearance Clear (CLEAR); Urine Color Dark Yellow (Yellow); pH Urine 6 (5-7)
[2023-12-31 12:50] LABS: Add Urine Microscopic? YES; Bilirubin Urine 2+ (Negative); Blood Urine Neg (Negative); Glucose Urine UA Norm (Normal); Ketones Urine Negative (Negative); Leukocyte Esterase Urine Trace (Negative); Nitrate Urine Negative (Negative); Urobilinogen Urine 8 mg/dL (Negative)
[2023-12-31 12:51] LABS: Bacteria Urine 1+ /hpf; Coarse Granular Casts Urine 0-4 /lpf; Hyaline Casts Urine 0-4 /lpf; Squamous Epithelial Cell Urine 0-4 /hpf (0-5); WBC Urine 0-4 /hpf (0-5)
[2023-12-31 12:52] LABS: Add Urine Culture? No
[2023-12-31 12:53] LABS: INR 2.59 (0.8-1.2)
[2023-12-31 12:58] LABS: Blood Gas Sample Site Radial, left
[2023-12-31 12:58] LABS: Alanine Aminotransferase 43 U/L (0-41); Albumin Level 2.2 g/dL (3.5-5.2); Alkaline Phosphatase 155 U/L (40-130); Anion Gap 11.6 (5-19); Aspartate Amino Transferase 60 U/L (0-40); Blood Urea Nitrogen 21 mg/dL (8-23); Calcium 7.9 mg/dL (8.5-10.5); Carbon Dioxide 29 mmol/L (22-29); Chloride 91 mmol/L (98-107); Creatinine Clr Calc Pharmacy 97.8942; Globulin 3.2 g/dL (1.3-4.6); Glucose 142 mg/dL (65-115); Lipase 31 U/L (13-60); Osmolality Calculated 269 mOsm/kg (285-295); Potassium 4.6 mmol/L (3.5-5.1); Sodium 127 mmol/L (136-145); Total Protein 5.4 g/dL (6.6-8.7)
[2023-12-31 12:59] LABS: ABG PH Result 7.47 (7.35-7.45)
[2023-12-31 12:59] LABS: Ammonia 22 umol/L (16-60)
[2023-12-31 13:00] LABS: ABG PCO2 39.2 mmHg (35-45); PO2 ABG 67.6 mmHg (80.0-100.0)
[2023-12-31 13:01] LABS: Arterial Blood Gas Hematocrit 36.4 % (42-52); Base Excess ABG 5.1 mmol/L (-2.0-2.0)
[2023-12-31 13:01] LABS: Total Bilirubin 12.8 mg/dL (0.15-1.2)
[2023-12-31] MEDS: iohexol 350 mg/mL 500 mL Btl (per mL) IV (13:19)
[2023-12-31] MEDS: piperacillin-tazobactam 3.375 GM in sodium chloride 0.9% (plus) 50 ML IV (15:15)
[2023-12-31] MEDS: vancomycin 1,000 MG in sodium chloride 0.9% 250 ML 250 MG IV (16:42)
--- NOTE | 2023-12-31 23:16 | PC.NURSE ---
Report was called to Jannet Love RN at [facility]; all questions and concerns addressed at time of report. Patient to be transferred to [id number] Patient updated.
[2023-12-31] MEDS: flecainide 100 mg Tablet PO (23:23)
[2024-01-01 00:41] VITALS: BP 117/68; PULSE 70; RESP 18; O2SAT 94
[2024-01-02 17:04] LABS: Bacillus cereus group Not Detected (NOT DETECT); Bacillus subtillis group Not Detected (NOT DETECT); Corynebacterium Not Detected (NOT DETECT); Cutibacterium acnes (P.acnes) Not Detected (NOT DETECT); Enterococcus Not Detected (NOT DETECT); Enterococcus faecalis Not Detected (NOT DETECT); Enterococcus faecium Not Detected (NOT DETECT); Lactobacillus species Not Detected (NOT DETECT); Listeria Not Detected (NOT DETECT); Listeria monocytogenes Not Detected (NOT DETECT); Micrococcus Detected (NOT DETECT); Pan Candida Not Detected (NOT DETECT); Pan Gram-Negative Not Detected (NOT DETECT); Staphylococcus epidermidis Not Detected (NOT DETECT); Staphylococcus lugdunensis Not Detected (NOT DETECT); Staphylococcus species Not Detected (NOT DETECT); Streptococcus agalactiae Not Detected (NOT DETECT); Streptococcus anginosus group Not Detected (NOT DETECT); Streptococcus pneumoniae Not Detected (NOT DETECT); Streptococcus pyogenes Not Detected (NOT DETECT); Streptococcus species Not Detected (NOT DETECT)
== END 2024-01-01 02:03 | disposition intermediate care facility (04) ==
PROVIDERS: Emergency Provider Emergency Medicine; PCP Family Medicine
DX: E80.6 Other disorders of bilirubin metabolism (principal); K74.60 Unspecified cirrhosis of liver; K80.50 Calculus of bile duct without cholangitis or cholecystitis without obstruction; J90 Pleural effusion, not elsewhere classified; Z95.0 Presence of cardiac pacemaker
CPT/HCPCS: 36415; 36600; 71045; 71275; 74177; 80053; 81001; 82140; 82803; 83690; 85025; 85610; 87040; 87150; 87205; 93005; 96365; 96366; 96367; 99285; J2543; J3370; J7050; Q9967